=== PATIENT | female | born 1940 | race Caucasian/White ===

== ENCOUNTER 2017-02-04 01:11 | Observation (INO) | payer MEDICARE, MEDICAID ==
[2017-02-04 02:55] LABS: CKMB 0.7 ng/mL (0-6.6); Troponin I Less than 0.010 ng/mL (< 0.028)
[2017-02-04 04:11] VITALS: BMI 32.5
[2017-02-04] MEDS ORDERED: Ondansetron HCl/PF 4 MG/2 ML Vial IVP PRN ×2 (04:20→07:23)
[2017-02-04] MEDS ORDERED: Ondansetron ODT 4 MG TAB SL PRN (04:20)
[2017-02-04 06:12] LABS: Troponin I Less than 0.010 ng/mL (< 0.028)
[2017-02-04] MEDS ORDERED: Loratadine 10 MG TAB PO PRN (07:23)
[2017-02-04] MEDS ORDERED: Zolpidem Tartrate 5 MG TAB PO PRN (07:23)
[2017-02-04] MEDS ORDERED: Nitroglycerin 0.4 MG TAB (25 Tab Bottle) SL PRN (07:23)
[2017-02-04] MEDS ORDERED: Eucerin (Mineral Oil/Petrolatum,White) 30 gm Jar TOP PRN (07:23)
[2017-02-04] MEDS ORDERED: Chloraseptic Spray 180 ml Bottle PO PRN (07:23)
[2017-02-04] MEDS ORDERED: hydrALAZINE 20 MG/ML VIAL SLOW IVP PRN (07:23)
[2017-02-04] MEDS ORDERED: Senokot 8.6 MG TAB PO PRN (07:23)
[2017-02-04] MEDS ORDERED: Mag-Al 1200 mg/1200 mg/30 ML UDCUP PO PRN (07:23)
[2017-02-04] MEDS ORDERED: Artificial Tears 18 DROP/0.9 ML EA EYE PRN (07:23)
[2017-02-04] MEDS ORDERED: Diabetic Tussin 200 MG/10 ML UDCUP PO PRN (07:23)
[2017-02-04] MEDS ORDERED: Ondansetron ODT 4 MG TAB PO PRN (07:23)
[2017-02-04] MEDS ORDERED: Loperamide HCl 2 MG CAP PO PRN (07:23)
[2017-02-04] MEDS ORDERED: Sodium Chloride 0.65% Nasal 44 ML BOT EA NARE PRN (07:23)
[2017-02-04] MEDS ORDERED: Milk Of Magnesia 30 ML UDCUP PO PRN (07:23)
[2017-02-04 08:42] LABS: Cardiac Risk 3.5 (Less than 4.5)
[2017-02-04 08:46] LABS: Troponin I Less than 0.010 ng/mL (< 0.028)
[2017-02-04] MEDS: traMADol HCl 50 MG TAB PO PRN ×2 (09:01→18:29)
[2017-02-04] MEDS: Famotidine 20 MG TAB PO SCH ×2 (09:01→20:09)
[2017-02-04] MEDS: Aspirin 81 mg Enteric Coated Tablet PO SCH (09:01)
[2017-02-04] MEDS ORDERED: Ondansetron ODT 4 MG TAB ONE (10:13)
[2017-02-04] MEDS ORDERED: Ondansetron HCl/PF 4 MG/2 ML Vial ONE (10:16)
--- NOTE | 2017-02-04 11:22 | SS ---
PRIMARY CARE PHYSICIAN: eTmi Darden M.D. DATE OF ADMISSION: 02/04/2017 at 02:55 a.m. REASON FOR ADMISSION: Chest pain. HISTORY OF PRESENT ILLNESS: A 76-year-old female with history of COPD, gastroesophageal reflux disea se who presented to [facility] with complaint of chest pain. She was having chest p ain for the last 2-3 days. There was no relation of chest pain with food, respiration or activity. It was coming randomly and it was going to her back as well as left shoulder, sometimes associated wi th nausea, but no vomiting. She was feeling sometimes shortness of breath with chest discomfort. Sh e was also feeling some indigestion type of symptoms as well with burping associated with chest disco mfort. She denies any palpitation, dizziness or syncope. She denies any orthopnea, PND or leg swell ing. She denies any dyspnea on exertion. She denies any fever or chills, cough, flu-like illness. She denies any UTI symptoms. She denies any constipation, diarrhea, melena or hematochezia. Her octavio cription of pain was about 9/10 in intensity but after emergency room treatment at [facility], her pain was subsided. At [facility], patient was given morphine 2 mg, nitropatch 1/2 inch, aspirin 324 mg, Zofran and subsequently she was sent to our emergency room for rule out acute coronary syndrome. When she arrived to our emergency room and after the emergency room, she was admitted to stroke obser vation floor. So far, patient had 3 negative cardiac enzymes. Her lipid profile is also at target. Currently, patient is chest pain free. We decided to do stress test. Her last stress dose was in and at that time stress test and echocardiography was normal. The patient agreed to go for str ess test and after stress test, if that is normal, then we will consider discharging her home later o n today. REVIEW OF SYSTEMS: The following complete review of systems was negative, unless otherwise mentioned in the HPI or below: Constitutional: Weight loss or gain, ability to conduct usual activities. Skin: Rash, itching. Eyes: Double vision, pain. ENT/Mouth: Nose bleeding, neck stiffness, pain, tenderness. Cardiovascular: Palpitations, dyspnea on exertion, orthopnea. Respiratory: Shortness of breath, wheezing, cough, hemoptysis, fever or night sweats. Gastrointestinal: Poor appetite, abdominal pain, heartburn, nausea, vomiting, constipation, or diarr hea. Genitourinary: Urgency, frequency, dysuria, nocturia. Musculoskeletal: Pain, swelling. Neurologic/Psychiatric: Anxiety, depression. Allergy/Immunologic: Skin rash, bleeding tendency. Please see my HPI for pertinent positives and negatives. All other review of systems reviewed and ne gative except as mentioned in the HPI. PAST MEDICAL HISTORY: COPD, gastroesophageal reflux disease, benign positional vertigo. PAST PSYCHIATRIC HISTORY: Anxiety. PAST SURGICAL HISTORY: Cholecystectomy, hysterectomy, knee surgery. SOCIAL HISTORY: The patient lives at home. No history of tobacco, alcohol or illicit drug abuse. FAMILY HISTORY: Hypertension runs among several family members. Mother also had diabetes and breast cancer. One sister of lung cancer. CURRENT HOME MEDICATIONS: Aspirin 81 mg p.o. daily, omeprazole 20 mg p.o. b.i.d., a and ranitidine 1 50 mg p.o. daily. ALLERGIES: ACETAMINOPHEN, NSAID, PENICILLIN. EMERGENCY ROOM COURSE: Patient has received morphine 2 mg, nitro patch, aspirin 324 mg and Zofran at [facility]. PHYSICAL EXAMINATION: VITAL SIGNS: On arrival to the emergency room, blood pressure 151/77, pulse 83, respiratory rate 18, temperature 98.7, saturation 98% on room air, weight 90.7 kilograms. GENERAL: The patient is currently alert, awake, no obvious acute distress. HEAD: Normocephalic, atraumatic. EYES: Pupils are round and reactive to light. Extraocular muscle intact. ENT: Oropharynx within normal limits. Moist mucous membranes. No oral lesions, no pharyngeal eryth adriana, no exudate. NECK: Supple, no JVD, no thyromegaly, no carotid bruit. No jugular venous distention. LUNGS: Clear to auscultation without any rhonchi or rales. CARDIAC: S1, S2 regular without any significant murmur, but soft systolic murmur noted at parasterna l area. ABDOMEN: Soft and benign without any tenderness. EXTREMITIES: No edema. NEUROLOGIC: Nonfocal examination. PSYCHIATRIC: Normal affect. IMAGING DATA AND SIGNIFICANT LABORATORY DATA: 1. EKG based on my review, incomplete right bundle branch block pattern, left anterior fascicular bl ock, nonspecific T inversion in lead V2. 2. Chest x-ray based on my review, no acute cardiopulmonary process. 3. CBC: WBC 9.3, hemoglobin 14.7, platelet 274, INR 1.0. 4. BMP: Sodium 140, potassium 4.1, chloride 104, carbon dioxide 26, BUN 11, creatinine 0.74, glucos e 112, calcium 9.2. 5. LFT: AST 30, ALT 26, alkaline phosphatase 141, albumin 4.0. 6. Cardiac enzymes negative x4. BNP 20.1. 7. Lipid profile; triglycerides 64, cholesterol 174, LDL 111, and HDL 50. 8. Influenza A and B negative. ASSESSMENT AND PLAN/IMPRESSION: 1. Patient's chest pain description is atypical. Based on her history, it is very difficult to dete rmine whether it is related with cardiac etiology, acid reflux versus musculoskeletal. At this point , we already ruled out acute coronary syndrome with negative cardiac enzymes, her telemetry remained unremarkable. Currently, the patient is chest pain free. The patient agreed to go for pharmacologic al Cardiolite stress test today. If that stress test comes back negative, then we will consider disc harging her home later on today. She had echocardiography previously which showed moderate AR and tr icuspid regurgitation. 2. Chronic obstructive pulmonary disease, currently stable. The patient is no longer smoking and zulma remberto does not use any inhalers at this point. Her chronic obstructive pulmonary disease per patient is very stable. While in hospital, we will use DuoNeb p.r.n. basis only. 3. Gastroesophageal reflux disease. Upon discharge, the patient will continue her ranitidine 150 mg p.o. daily and omeprazole 20 mg p.o. b.i.d. 4. Moderate aortic regurgitation and tricuspid regurgitation based on prior echocardiography, garfield tly stable. 5. Deep venous thrombosis prophylaxis not needed because we are expecting discharge later on today. 6. Gastrointestinal prophylaxis, Pepcid 20 mg p.o. b.i.d. 7. Code status: The patient is FULL CODE. Patient does not have any surrogate decision maker. Disposition plan based on stress test result. DATE OF ADMISSION: 02/04/2017 at 3:00 a.m. DATE OF DISCHARGE: 02/04/2017 DISCHARGE DISPOSITION: Home. DISCHARGE DIAGNOSIS: Chest pain, ruled out acute coronary syndrome. SECONDARY DISCHARGE DIAGNOSES: Gastroesophageal reflux disease, chronic obstructive pulmonary diseas e, anxiety, obesity with body mass index 30. PRIMARY PROCEDURE/OPERATION: None. RADIOLOGICAL INVESTIGATION: Chest x-ray normal. Stress test official report is pending. SIGNIFICANT LABORATORY DATA: Please see above for further lab results. CONTRAINDICATIONS: None. CODE STATUS: FULL CODE. DISCHARGE MEDICATIONS: The patient will continue aspirin 81 mg p.o. daily, omeprazole 20 mg p.o. b.i .d., ranitidine 150 mg p.o. daily. DISCHARGE PLAN: Post hospital, patient will follow up with Dr. aDrden in 1 week. HOSPITAL COURSE: A 76-year-old female who was admitted for chest pain. Initially, she was evaluated at [facility]. She had negative cardiac enzymes and we ruled out acute coronary sy ndrome. We did stress test and official report is pending. If stress is negative, then she will be discharged home later on today. Patient was admitted and discharged on the same day.
[2017-02-04] MEDS ORDERED: Regadenoson 0.4 MG/5 ML SYRINGE ONE (11:49)
[2017-02-05] MEDS: Famotidine 20 MG TAB PO SCH (07:51)
[2017-02-05] MEDS: Aspirin 81 mg Enteric Coated Tablet PO SCH (07:51)
--- NOTE | 2017-02-05 11:02 | PDOC.PN ---
- Subjective Encounter Start Date: 02/05/17 Encounter Start Time: 07:35 -: old records requested/rev Patient seen and examined. No new complaints. No overnight events - Objective Resuscitation Status: Resuscitation Status FULL:Full Resuscitation MAR Reviewed: Yes Vital Signs & Weight: Vital Signs (12 hours) Temp Pulse Resp BP Pulse Ox 02/05/17 07:58 98.0 F 57 L 16 02/05/17 07:14 98.0 F 57 L 16 120/58 L 95 02/05/17 04:07 98.2 F 54 L 16 114/62 93 L 02/04/17 23:07 97.9 F 53 L 18 116/57 L 94 L Weight Admit Weight 208 lb Weight 207 lb 14.4 oz I&O: 02/04/17 02/05/17 02/06/17 06:59 06:59 06:59 Intake Total 790 Balance 790 EKG Reviewed by me: Yes (nsr) Phys Exam - Physical Examination Constitutional: NAD HEENT: PERRLA, moist MMs, sclera anicteric Neck: no JVD, supple Respiratory: no wheezing, no rales, no rhonchi Cardiovascular: RRR, no significant murmur, no rub Gastrointestinal: soft, non-tender, no distention, positive bowel sounds Musculoskeletal: no edema, pulses present Neurological: non-focal, normal sensation, moves all 4 limbs Lymphatic: no nodes Psychiatric: normal affect, A&O x 3 Skin: no rash, normal turgor Dx/Plan (1) Chest pain Code(s): R07.9 - CHEST PAIN, UNSPECIFIED Status: Acute (2) Anxiety Code(s): F41.9 - ANXIETY DISORDER, UNSPECIFIED Status: Chronic (3) COPD (chronic obstructive pulmonary disease) Status: Chronic (4) GERD (gastroesophageal reflux disease) Code(s): K21.9 - GASTRO-ESOPHAGEAL REFLUX DISEASE WITHOUT ESOPHAGITIS Status: Chronic (5) Obesity (BMI 30.0-34.9) Code(s): E66.9 - OBESITY, UNSPECIFIED Status: Chronic - Plan cont current plan of care * today resting part of stress test * if stress test normal, will discharge * medication reviewed as below * symptomatic treatment. Review of Systems - Review of Systems ENT: negative: Ear Pain, Ear Discharge, Nose Pain, Nose Discharge, Nose Congestion, Mouth Pain, Mouth Swelling, Throat Pain, Throat Swelling, Other Respiratory: negative: Cough, Dry, Shortness of Breath, Hemoptysis, SOB with Excertion, Pleuritic Pain, Sputum, Wheezing Cardiovascular: negative: chest pain, palpitations, orthopnea, paroxysmal nocturnal dyspnea, edema, light headedness, other Gastrointestinal: negative: Nausea, Vomiting, Abdominal Pain, Diarrhea, Constipation, Melena, Hematochezia, Other Genitourinary: negative: Dysuria, Frequency, Incontinence, Hematuria, Retention , Other Musculoskeletal: negative: Neck Pain, Shoulder Pain, Arm Pain, Back Pain, Hand Pain, Leg Pain, Foot Pain, Other - Medications/Allergies Allergies/Adverse Reactions: Allergies Allergy/AdvReac Type Severity Reaction Status Date / Time acetaminophen [From Tylenol] Allergy Verified 02/04/17 04:22 NSAIDS (Non-Steroidal Allergy Verified 02/04/17 04:22 Anti-Inflamma Penicillins Allergy Verified 02/04/17 04:22 Medications: Current Medications Al Hydroxide/Mg Hydroxide (Maalox) 30 ml PO Q6H PRN PRN Reason: Heartburn or Indigestion Albuterol/Ipratropium (Duoneb) 3 ml NEB [id number] PRN PRN Reason: SOB &/or Wheezing Artificial Tears (Tears Naturale) 0 drop EA EYE PRN PRN PRN Reason: Dry Eyes Aspirin (Ecotrin) 81 mg PO DAILY [facility] Last Admin: 02/05/17 07:51 Dose: 81 mg Famotidine (Pepcid) 20 mg PO BID [facility] Last Admin: 02/05/17 07:51 Dose: 20 mg Guaifenesin (Robitussin Sf) 200 mg PO Q4H PRN PRN Reason: Cough Hydralazine HCl (Apresoline) 10 mg SLOW IVP Q4H PRN PRN Reason: Systolic BP > 180 Loperamide HCl (Imodium) 2 mg PO PRN PRN PRN Reason: Diarrhea/Loose Stools Loratadine (Claritin) 10 mg PO DAILYPRN PRN PRN Reason: Sinus Symptoms Magnesium Hydroxide (Milk Of Magnesium) 30 ml PO DAILYPRN PRN PRN Reason: Constipation Mineral Oil/White Petrolatum (Eucerin Cream) 0 gm TOP BIDPRN PRN PRN Reason: Dry Skin Nitroglycerin (Nitrostat) 0.4 mg SL Q5MIN PRN PRN Reason: Chest Pain Ondansetron HCl (Zofran Odt) 4 mg PO Q6H PRN PRN Reason: Nausea/Vomiting Ondansetron HCl (Zofran) 4 mg IVP Q6H PRN PRN Reason: Nausea/Vomiting Last Admin: 02/04/17 10:10 Dose: 4 mg Phenol (Chloraseptic [place] 180 Ml Bot) 0 ml PO PRN PRN PRN Reason: Sore Throat Senna (Senokot) 2 tab PO HSPRN PRN PRN Reason: Constipation Sodium Chloride ([place] Nasal [place] 0.65%) 0 ml EA NARE QIDPRN PRN PRN Reason: Nasal Congestion Tramadol HCl (Ultram) 50 mg PO Q4H PRN PRN Reason: Moderate Pain (4-6) Last Admin: 02/04/17 18:29 Dose: 50 mg Zolpidem Tartrate (Ambien) 5 mg PO HSPRN PRN PRN Reason: Insomnia
--- NOTE | 2017-02-05 11:52 | DIS ---
PRIMARY CARE PHYSICIAN: Dr. Darden. DATE OF ADMISSION: 02/04/2017 DATE OF DISCHARGE: 02/05/2017 DISCHARGE DISPOSITION: Home. PRIMARY DISCHARGE DIAGNOSIS: Chest pain, ruled out acute coronary syndrome. SECONDARY DISCHARGE DIAGNOSES: Anxiety disorder, chronic obstructive pulmonary disease, gastroesopha geal reflux disease, obesity with BMI 32. PRIMARY PROCEDURE/OPERATION: None. RADIOLOGICAL INVESTIGATION: Chest x-ray, normal. Stress test, normal. SIGNIFICANT LABS: CBC, BMP, LFTs normal. Cardiac enzymes negative. LDL 111. DISCHARGE MEDICATIONS: Aspirin 81 mg p.o. daily, omeprazole 20 mg p.o. b.i.d., ranitidine 150 mg p.o . daily. CONTRAINDICATIONS: None. CODE STATUS: FULL CODE. INPATIENT CONSULTANTS: None. ALLERGIES: ACETAMINOPHEN, NSAID. DISCHARGE PLAN: Post hospital, the patient will follow up with primary care physician in 1 week. HOSPITAL COURSE: Please see my HPI/short stay summary for further details. The patient was admitted for chest pain. Her chest pain was noncardiac, most likely related with anxiety. Serial cardiac en zymes were negative. Telemetry remained unremarkable. LDL was 111. Patient was scheduled for a str ess test which was done in 2 days protocol and that came back normal. The patient is asymptomatic an d telemetry remained normal. Patient is medically stable for discharge. Please see my progress note from today for further details.
[2017-02-05 12:12] VITALS: BP 161/78; TEMP 98.4
--- NOTE | 2017-02-05 12:35 | NM ---
CARDIAC SPECT: HISTORY: A 76-year-old female with chest pain, atrial fibrillation, shortness of breath, and COPD. TECHNIQUE: A myocardial perfusion scan was performed using the single isotope two-day protocol with 30 millicuri es technetium 99m sestamibi injected intravenously for stress and rest images. Pharmacologic stress with Lexiscan was monitored and interpreted by Dr. Mac. FINDINGS: Homogeneous tracer distribution is seen in the myocardial segments on stress and rest images without fixed or reversible defects. GATED SPECT LVEF: 66% WALL MOTION EXAM: Normal. IMPRESSION: Normal myocardial perfusion scan. POS: [facility]
--- NOTE | 2017-02-05 13:28 | EKG ---
Test Reason : Blood Pressure : / mmHG Vent. Rate : 071 BPM Atrial Rate : 071 BPM P-R Int : 150 ms QRS Dur : 104 ms QT Int : 410 ms P-R-T Axes : 054 -60 063 degrees QTc Int : 445 ms Normal sinus rhythm Incomplete right bundle branch block Left anterior fascicular block Nonspecific ST abnormality Abnormal ECG Confirmed by NIDIA CONTRERAS [id number]), online editor TRISH MAGAÑA ([id number]) on 02/05/2017 1:27:38 PM Referred By: Confirmed By:NIDIA CONTRERAS
--- NOTE | 2017-03-11 11:50 | STRESS ---
Acquisition Time: 2017-02-04 09:23:29 Total Exercise Time: 00:01:00 Test Indications: CHEST PAIN Medications: Protocol: LEXISCAN Max HR: 082 BPM 56% of Pred: 146 BPM Max BP: 124/066 mmHG Max Work Load: 1.0 METS RESTING ECG: SINUS BRADYCARDIA AT 56 BPM WITH LEFT AXIS DEVIATION AND INCOMPLETE RIGHT BUNDLE BRANCH BLOCK SYMPTOMS: DYSPNEA APPROPRIATE BLOOD PRESSURE RESPONSE FOR LEXISCAN ECTOPY: NONE ECG RESPONSE: NO SIGNIFICANT CHANGES INTERPRETATION: NEGATIVE ECG/AWAIT NUCLEAR IMAGES FOR DEFINITIVE DIAGNOSIS Confirmed by DR. Panda KEARNEY ([id number]), editor city [place]AL[place] GORDON ([id number]) on 03/11/2017 11:49:30 AM Referred By: David NEGRON Confirmed By:DR. Panda KEARNEY
== END 2017-02-05 13:57 | disposition home or self-care (01) ==
LOC: ERS 01:11 → 2SW 02:55 → ERS 03:55
PROVIDERS: ADMIT Family Medicine; ATTEND Family Medicine
DX: R07.89 Other chest pain (principal); J44.9 Chronic obstructive pulmonary disease, unspecified; K21.9 Gastro-esophageal reflux disease without esophagitis; F41.9 Anxiety disorder, unspecified; H81.10 Benign paroxysmal vertigo, unspecified ear; I07.1 Rheumatic tricuspid insufficiency; I35.1 Nonrheumatic aortic (valve) insufficiency; I48.91 Unspecified atrial fibrillation; E66.9 Obesity, unspecified; Z68.32 Body mass index [BMI] 32.0-32.9, adult; Z87.891 Personal history of nicotine dependence; Z80.3 Family history of malignant neoplasm of breast; Z83.3 Family history of diabetes mellitus; Z79.82 Long term (current) use of aspirin; Z79.899 Other long term (current) drug therapy; Z88.0 Allergy status to penicillin; Z88.8 Allergy status to other drugs, medicaments and biological substances; Z90.710 Acquired absence of both cervix and uterus; Z90.49 Acquired absence of other specified parts of digestive tract; Z98.890 Other specified postprocedural states
CPT/HCPCS: 78452; 80061; 82553; 84484 ×2; 93005; 93017; 96374; 99285; A9500; G0378; 36415; J2405; J2785; Q0162

== ENCOUNTER 2017-09-19 22:22 | Observation (INO) | payer MEDICARE, MEDICAID ==
[2017-09-19 23:10] LABS: Bilirubin Negative (Negative); Blood, Urine Negative (Negative); Clarity CLOUDY (Clear); Glucose, Urine (Dipstick) Negative (Negative); Leukocyte Trace (Negative); Nitrite Negative (Negative); Protein, Urine (Dipstick) Negative (Neg-Trace); Specific Gravity, Urine 1.003 (1.002-1.036); Urobilinogen 0.2 mg/dL (0.2-1.0); pH, Urine 5.5 (5.0-9.0)
[2017-09-19 23:12] LABS: Bacteria/HPF Rare-Few HPF (None Seen); Hyaline Casts/LPF 0-3 HYALINE CAST LPF (0-3 Hyaline); Pathc Cast-AUWi Flag 0.29 (0-2.49); RBC/HPF 0-3 HPF (0-3); Squamous Epithelial 0-3 HPF (0-3); WBC/HPF 0-3 HPF (0-3)
[2017-09-19 23:24] LABS: #Basophils 0.1 thou/uL (0.0-0.2); #Eosinphils 0.5 thou/uL (0.0-0.7); #Lymphocytes 2.5 thou/uL (1.20-3.40); #Monocytes 0.5 thou/uL (0.11-0.59); #Neutrophils 4.6 thou/uL (1.40-6.50); %Basophils 0.7 % (0.0-1.0); %Eosinophils 5.7 % (0.0-10.0); %Lymphocytes 30.8 % (21.0-51.0); %Monocytes 6.6 % (0.0-10.0); %Neutrophils 56.1 % (42.0-75.0); Hemoglobin 13.8 g/dL (12.0-16.0); Mean Corpuscular HGB CONC 34.9 g/dL (32.0-36.0); Mean Corpuscular Hemoglobin 32.5 pg (27.0-31.0); Mean Corpuscular Volume 93.1 fL (78.0-98.0); Mean Platelet Volume 7.2 fL (7.4-10.4); Platelet Count 247 thou/uL (130-400); RBC Distribution Width 11.8 % (11.5-14.5); Red Blood Cell (RBC) Count 4.27 mill/uL (4.20-5.40); White Blood Cell (WBC) Count 8.2 thou/uL (4.8-10.8)
[2017-09-19 23:49] LABS: ALT (SGPT) 24 U/L (8-55); AST (SGOT) 28 U/L (5-34); Albumin 3.9 g/dL (3.4-4.8); Alkaline Phosphatase 131 U/L (40-150); Anion Gap 13 mmol/L (10-20); BUN (Urea Nitrogen) 7 mg/dL (9.8-20.1); Bilirubin, Total 0.5 mg/dL (0.2-1.2); Calc. Creatinine Clearance 0 mL/min (70-130); Calcium 9.7 mg/dL (7.8-10.44); Carbon Dioxide 23 mmol/L (23-31); Chloride 105 mmol/L (98-107); Estimated GFR-MDRD 72; Globulin 3.1 g/dL (2.4-3.5); Glucose 97 mg/dL (83-110); Potassium 3.8 mmol/L (3.5-5.1); Sodium 137 mmol/L (136-145)
[2017-09-19 23:52] LABS: Troponin I Less than 0.010 ng/mL (< 0.028)
[2017-09-20 03:09] LABS: Troponin I 0.012 ng/mL (< 0.028)
--- NOTE | 2017-09-20 05:28 | CT ---
HEAD CT NONCONTRAST: INDICATIONS: Left arm sensory disturbance. FINDINGS: There is no evidence of acute intracranial hemorrhage, mass effect, or midline shift. Mild chronic i schemic disease is seen within the cerebral hemispheres. The paranasal sinuses are clear. IMPRESSION: 1. No acute intracranial hemorrhage or mass effect. 2. Mild chronic ischemic disease of the cerebral white matter. POS: [facility]
[2017-09-20 05:53] VITALS: BMI 32.6
[2017-09-20 07:00] LABS: Troponin I Less than 0.010 ng/mL (< 0.028)
--- NOTE | 2017-09-20 07:32 | RAD ---
CHEST 2 VIEWS: HISTORY: Pain. COMPARISON: 02/03/17. FINDINGS: Slight elongation of the aorta. Upper normal cardiac silhouette. Pulmonary vessels and hilum are no rmal. Costophrenic angles are clear. No consolidation or mass. No pneumothorax or osseous abnormal ities. There is rightward curvature of the thoracic spine, unchanged. IMPRESSION: No acute cardiopulmonary process. POS: [facility]
[2017-09-20 11:25] LABS: Hemoglobin A1c 5.2 % (4.0-6.0)
[2017-09-20 11:47] LABS: Cardiac Risk 3.7 (Less than 4.5)
[2017-09-20 11:59] VITALS: BP 108/68; TEMP 97.5
--- NOTE | 2017-09-20 13:25 | CON ---
DATE OF CONSULTATION: 09/20/[address] Theo Harrell full consultation for details. HISTORY OF PRESENT ILLNESS: Briefly, Ms. Tavarez is a very pleasant 77-year-old woman who recently presented with chest pain. The pain was described as sharp. It began acutely. She states it was wo rse with deep breath. Also, states it was worse with movement of her left arm. It has been a consta nt type discomfort. PHYSICAL EXAMINATION: The area in her mid axillary region is very tender to palpation. LABORATORY DATA: Her CK and troponins have been negative. IMPRESSION: Atypical chest pain. RECOMMENDATIONS: Ms. Tavarez's symptoms are not suggestive of angina. She had a normal stress stud y done in the office in September that was negative for ischemia as well as a stress study in January a [facility] [place] is also negative for ischemia. I would treat with nonsteroidal therapy. We will also r ecommend a rib series to assess for fracture. She does deny trauma.
--- NOTE | 2017-09-20 14:12 | CON-2 ---
DATE OF CONSULTATION: 09/20/2017 REASON FOR CONSULTATION: Chest pain. HISTORY OF PRESENT ILLNESS: This is a 77-year-old female, who is complaining of chest pain that bega n at approximately 05:00 p.m. yesterday evening. She has never had this kind of chest pain before. Pain is sharp and located on the left lateral side of her anterior chest wall. The pain is not const ant, it is not constant, but comes and goes. It is worsened with deep inspiration and left arm movem ent. The patient has a past medical history of COPD, GERD, and anxiety, but no known history of kelby nary artery disease. She was evaluated in the ER and found to have a new left bundle branch block as compared to prior EKGs. There was also concern for some TIA with left arm weakness. The patient's CT of the head was done with no contrast that was negative. She was admitted for acute coronary synd zayra rule out. PAST MEDICAL HISTORY: 1. COPD. 2. GERD. 3. Benign paroxysmal positional vertigo. 4. Anxiety. PAST SURGICAL HISTORY: 1. Cholecystectomy. 2. Hysterectomy. 3. Orthopedic knee surgery. SOCIAL HISTORY: No history of tobacco use or illicit drug use. 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 FAMILY HISTORY: Significant for hypertension in several family members. Mother with diabetes and br east cancer. MEDICATIONS: Upon discharge on 02/04/2017, patient was taking aspirin 81 mg p.o. daily, omeprazole 2 0 mg p.o. b.i.d., and ranitidine 150 mg p.o. daily. However, the patient notes she is not taking the medications for several months now. REVIEW OF SYSTEMS: Constitutional: The patient denies weight loss, fatigue. Cardiovascular: Patie nt endorses chest pain, denies palpitations. Pulmonary: Patient denies shortness of breath. Denies wheezing. Gastrointestinal: Patient denies abdominal pain, denies nausea, vomiting, diarrhea. Gen itourinary: Patient denies urinary urgency or frequency. Musculoskeletal: Patient denies joint pop n. Denies swelling. Neurologic: The patient denies extremity weakness or numbness. Psychiatric: The patient denies anxiety. No depression. PHYSICAL EXAMINATION: VITAL SIGNS: Temperature of 97.5, pulse of 71, respirations of 18, O2 saturation 97% on room air, bl ood pressure 135/78. GENERAL: The patient is A and O x4, in no distress. HEENT: Normocephalic, atraumatic. ENT: Shows oropharynx within normal limits. Moist mucous membra stevie. NECK: Supple, with no lymphadenopathy. LUNGS: Clear to auscultation bilaterally. CARDIOVASCULAR: Regular rate and rhythm. No murmurs. ABDOMEN: Soft, nontender to palpation and massive distention is felt. EXTREMITIES: Show no edema. NEUROLOGIC: Cranial nerves II-XII intact. Normal sensation in bilateral upper and lower extremities . Strength 5/5 in bilateral upper and lower extremities. PSYCHIATRIC: Alert and oriented. Normal affect. SIGNIFICANT LABORATORY VALUES: Include hemoglobin of 13.8, hematocrit of 39.7, platelet of 247. Sod ium 137, potassium 3.8, hemoglobin A1c 5.2. Troponins are negative x3. BNP of 25.6, triglycerides 1 00, cholesterol 182, LDL 113, HDL 49. Urinalysis is negative. ASSESSMENT AND PLAN: This is a 77-year-old female presenting with reproducible intermittent left-gonzález ed chest pain. 1. Atypical chest pain. This is likely not cardiac in nature given negative cardiac enzymes and rep roducible nature of the pain. Upon further review of the EKG, it is felt that the patient does not m eet criteria for left bundle branch block. Leads 1, aVL, and V6 are unaffected. There is significan t pain upon palpation of the lateral ribs on the left side. For this reason, we will get a rib serie s to check for fracture. The patient has recently undergone stress testing on 02/02/2017. Stress te st at that time was normal with an ejection fraction of 66%. The patient also underwent stress testi ng on 09/10/2015, which was also normal with an ejection fraction of 74%. She is having no chest pop n at rest, and we do not feel that this is cardiac in nature at this time. 2. Left arm weakness. This was labeled as a TIA. In the ER, CT of the head was negative. Patient does not have any sensory or motor deficits, but rather did not want to move her left arm, because it hurt her chest too much. The patient has no focal neurological deficits at this time. She is clear ed from a cardiac standpoint. This consultation was discussed with Dr. Juan Antonio Nichols.
--- NOTE | 2017-09-20 15:43 | RAD ---
AP AND OBLIQUE VIEWS LEFT RIBS: History: FINDINGS: Left rib radiographs demonstrate no definite evidence of left rib fractures or acute bony lesions. IMPRESSION: Unremarkable AP and oblique views of left ribs. POS: [facility]
--- NOTE | 2017-09-20 19:13 | HP ---
CHIEF COMPLAINT: Left arm weakness and chest pain. HISTORIAN: The patient, reliable. HISTORY OF PRESENT ILLNESS: This is a 77-year-old female with past medical history of chronic obstru ctive pulmonary disease, vertigo, unknown history of arrhythmia most likely bradycardia, osteopenia, GERD, presenting with a chief complaint of chest pain that radiated to her left arm on the pain scale of 10/10, which was intermittent. Patient states that the pain came around 5:00 p.m. and it was elias y sharp in nature and that made her get very scared; therefore she called her brother and her brother told her to call the ambulance. Per the patient, she took some aspirin, which helped the pain somew hat. The patient denies any headaches, nausea, vomiting, shortness of breath, palpitations, abdomina l pain, constipation, diarrhea; however, admits to having some weakness in the left arm. REVIEW OF SYSTEMS: Positive for chest pain, left arm weakness and discomfort and negative for all ot hers as stated in the HPI. PAST MEDICAL HISTORY: Includes COPD, vertigo, osteopenia, GERD, unknown arrhythmia. FAMILY HISTORY: Patient states that mom and dad has . FAMILY HISTORY: Noncontributory to the visit. PAST SURGICAL HISTORY: The patient had a right knee surgery, and a hysterectomy. SOCIAL HISTORY: Patient was former alcoholic, but quit. Patient denies smoking and the patient also denied using any illicit drugs. PSYCH HISTORY: The patient denies a history of anxiety. ALLERGIES: Patient is allergic to NSAIDS, PENICILLINS. Patient also states that she does not like s moke. PHYSICAL EXAMINATION: VITAL SIGNS: Temperature in the ED was 97.3, pulse 71, respirations of 18, O2 saturation of 97, bloo d pressure is 135/78. GENERAL: The patient is alert, oriented x3, not in any acute distress. The patient is very pleasant . HEENT: Normocephalic, atraumatic. Pupils are equally round and reactive to light. No scleral icter us. NECK: Supple, no JVDs. LUNGS: Clear to auscultation bilaterally. No wheezing, no rales appreciated. CARDIAC: Positive S1, S2, regular rate and rhythm. No murmurs, no gallops or rubs. ABDOMEN: Soft, nontender, nondistended. No palpable masses. EXTREMITIES: No edema. Good upper extremity and lower extremity strength. Good pulses bilaterally. NEUROLOGIC: Cranial nerves II-XII grossly intact. No neurological deficits noted. PSYCHIATRIC: The patient is alert, oriented x3, normal affect. ASSESSMENT AND PLAN: This is a 77-year-old female being admitted for: 1. Chest pain, most likely secondary to gastroesophageal reflux disease. The patient is on Protonix at this time. Troponin x3 has been negative. EKG is negative. We have consulted Cardiology. We w ill follow up with cardiology's recommendations. 2. Left arm weakness. Patient at this point is feeling better, does not have any weakness in the le ft arm. We will continue to monitor the patient. 3. History of chronic obstructive pulmonary disease. We will do a neb treatments p.r.n. Continue t o monitor the patient. 4. History of anxiety. Patient is currently calm and stable. We will monitor the patient. 5. Benign paroxysmal positional vertigo. The patient is currently not having any dizziness. The pa tient is stable. We will monitor the patient.
--- NOTE | 2017-09-21 00:49 | DIS ---
The patient was seen and examined by me on the day of discharge, the patient was stable and did not h ave any acute distress, all physical within normal limits. DISCHARGE DIAGNOSES: 1. Chest pain likely secondary to gastroesophageal reflux disease. 2. Left arm weakness. 3. History of chronic obstructive pulmonary disease. 4. History of anxiety. 5. Benign paroxysmal positional vertigo. HOSPITAL COURSE: This is a 77-year-old female who came in for chest pain and left arm weakness. The patient tried to take aspirin but did not help, so patient came in the ambulance, came to the ED. In the ED, patient was found to be sinus bradycardic. The patient was admitted and Cardiology w as consulted. Cardiology saw the patient stated that he needs to be done the chest has nothing that is related to any typical cardiac symptoms. At this point, Cardiology has signed off and state d that the patient has had a stress test not too long ago; therefore, no stress test or echo was orde red to be followed up on. The patient has been asymptomatic and patient is doing well. DISPOSITION: The patient is being discharged on the same day of admission. The patient is advised t o follow up with her primary care doctor. LABORATORY DATA: Troponins were negative x3. All labs were within normal limits. DISCHARGE MEDICATIONS: Please refer to the patient's electronic medical records for discharge medica tions. The discharge encounter was about 35 minutes.
== END 2017-09-20 16:21 | disposition home or self-care (01) ==
LOC: ERS 22:22 → 2SE 09-20 02:59
PROVIDERS: ADMIT Internal Medicine; ATTEND Internal Medicine
DX: R07.89 Other chest pain (principal); R53.1 Weakness; R42 Dizziness and giddiness; J44.9 Chronic obstructive pulmonary disease, unspecified; K21.9 Gastro-esophageal reflux disease without esophagitis; Z88.0 Allergy status to penicillin
CPT/HCPCS: 70450; 71046; 71100; 80053; 80061; 82553; 83036; 83880; 84484 ×3; 85025; 93005; 97139; 99285; G0378 ×2; 36415; 81003; 81015

== ENCOUNTER 2017-10-17 03:20 | Emergency (ER) | payer MEDICARE, MEDICAID ==
[2017-10-17] MEDS ORDERED: Diazepam 5 MG TAB ONE (04:18)
[2017-10-17 05:20] LABS: #Eosinphils 0.2 thou/uL (0.0-0.7); #Lymphocytes 1.1 thou/uL (1.20-3.40); #Monocytes 0.4 thou/uL (0.11-0.59); #Neutrophils 5.6 thou/uL (1.40-6.50); %Basophils 0.4 % (0.0-1.0); %Eosinophils 2.9 % (0.0-10.0); %Lymphocytes 14.7 % (21.0-51.0); Hemoglobin 13.5 g/dL (12.0-16.0); Mean Corpuscular HGB CONC 33.2 g/dL (32.0-36.0); Mean Corpuscular Hemoglobin 31.7 pg (27.0-31.0); Mean Corpuscular Volume 95.7 fL (78.0-98.0); Mean Platelet Volume 7.9 fL (7.4-10.4); Platelet Count 226 thou/uL (130-400); RBC Distribution Width 12.1 % (11.5-14.5); Red Blood Cell (RBC) Count 4.26 mill/uL (4.20-5.40); White Blood Cell (WBC) Count 7.4 thou/uL (4.8-10.8)
[2017-10-17 05:35] LABS: ALT (SGPT) 46 U/L (8-55); AST (SGOT) 36 U/L (5-34); Albumin 3.9 g/dL (3.4-4.8); Alkaline Phosphatase 172 U/L (40-150); Anion Gap 10 mmol/L (10-20); BUN (Urea Nitrogen) 10 mg/dL (9.8-20.1); Bilirubin, Total 0.6 mg/dL (0.2-1.2); Calc. Creatinine Clearance 0 mL/min (70-130); Calcium 8.9 mg/dL (7.8-10.44); Carbon Dioxide 26 mmol/L (23-31); Chloride 105 mmol/L (98-107); Estimated GFR-MDRD 68; Globulin 3.3 g/dL (2.4-3.5); Glucose 123 mg/dL (83-110); Potassium 3.7 mmol/L (3.5-5.1); Protein, Total 7.2 g/dL (6.0-8.3); Sodium 137 mmol/L (136-145)
--- NOTE | 2017-10-17 09:19 | CT ---
PRELIMINARY REPORT/[facility]/EMERGENTY AFTER-HOURS PROCEDURE CT Head Without Intravenous Contrast EXAM DATE/TIME: 10/17/2017 4:12 AM CLINICAL HISTORY: 77 years old, female; Signs and symptoms; Dizziness; Patient HX: 77 yo f presents to ed with dizzines s. PT reports sudden onset dizziness that started tonight while sitting in her chair, reports dizzine ss has now resolved. PT reports associated headache, neck pain, weakness, and nausea. PT denies fall, denies vision changes, denies chest pain, denies fever, denies chills. PT reports HX of vertigo, but states this spell has been more severe than usual. TECHNIQUE: Axial computed tomography images of the head/brain without intravenous contrast. COMPARISON: No relevant prior studies available. FINDINGS: Brain: Volume loss and chronic small vessel ischemic change. No brain edema. No intracranial hemorrha ge. Ventricles: Normal. No ventriculomegaly. Bones/joints: Normal. No acute fracture. Sinuses: Normal as visualized. No acute sinusitis. Mastoid air cells: Normal as visualized. No mastoid effusion. Soft tissues: Normal. IMPRESSION: No acute brain findings. Thank you for allowing us to participate in the care of your patient. Dictated and Authenticated by: Gabino López MD 10/17/2017 4:38 AM Central Time ([place] & [place]) FINAL REPORT HEAD CT WITHOUT CONTRAST: COMPARISON: 09/20/17. HISTORY: Dizziness. FINDINGS: This report is in agreement with the preliminary report by [facility]. No acute intracranial process. Age- appropriate atrophy. Chronic small vessel ischemic change of the white matter identified. POS: [facility]
== END 2017-10-17 07:22 | disposition home or self-care (01) ==
LOC: ERS 03:20
DX: R42 Dizziness and giddiness (principal); F41.9 Anxiety disorder, unspecified; K21.9 Gastro-esophageal reflux disease without esophagitis; M85.80 Other specified disorders of bone density and structure, unspecified site; I49.9 Cardiac arrhythmia, unspecified; J44.9 Chronic obstructive pulmonary disease, unspecified; Z79.899 Other long term (current) drug therapy
CPT/HCPCS: 36415; 70450; 80053; 85025

== ENCOUNTER 2017-11-14 19:01 | Observation (INO) | payer MEDICARE, MEDICAID ==
[~2017-11-14 19:01] MED LIST: ISOVUE-370 76%-LOCM 1 ML ONE
--- NOTE | 2017-11-14 20:07 | RAD ---
PORTABLE CHEST ONE VIEW: 11/14/2017 6:56 p.m. HISTORY: Generalized weakness. COMPARISON: 09/20/2017 FINDINGS: The heart size is enlarged. The aorta is tortuous. The lungs are well expanded without lobar consol idation, pneumothoraces, abraham pulmonary edema, or pleural effusions. IMPRESSION: No acute process. POS: [facility]
[2017-11-14 20:09] LABS: #Basophils 0.1 thou/uL (0.0-0.2); #Eosinphils 0.6 thou/uL (0.0-0.7); #Lymphocytes 1.9 thou/uL (1.20-3.40); #Monocytes 0.6 thou/uL (0.11-0.59); #Neutrophils 4.2 thou/uL (1.40-6.50); %Basophils 1.1 % (0.0-1.0); %Eosinophils 8.2 % (0.0-10.0); %Monocytes 7.5 % (0.0-10.0); %Neutrophils 57.2 % (42.0-75.0); Hemoglobin 14.6 g/dL (12.0-16.0); Mean Corpuscular HGB CONC 33.2 g/dL (32.0-36.0); Mean Corpuscular Hemoglobin 31.5 pg (27.0-31.0); Mean Corpuscular Volume 95.1 fL (78.0-98.0); Mean Platelet Volume 8.1 fL (7.4-10.4); Platelet Count 286 thou/uL (130-400); RBC Distribution Width 11.9 % (11.5-14.5); Red Blood Cell (RBC) Count 4.62 mill/uL (4.20-5.40); White Blood Cell (WBC) Count 7.3 thou/uL (4.8-10.8)
[2017-11-14] MEDS ORDERED: Lidocaine Viscous Sol 2% 15 ml UD Cup ONE (20:15)
[2017-11-14] MEDS ORDERED: Mag-Al 1200 mg/1200 mg/30 ML UDCUP ONE (20:15)
[2017-11-14 20:28] LABS: ALT (SGPT) 41 U/L (8-55); AST (SGOT) 49 U/L (5-34); Alkaline Phosphatase 203 U/L (40-150); Anion Gap 12 mmol/L (10-20); BUN (Urea Nitrogen) 9 mg/dL (9.8-20.1); Bilirubin, Total 0.4 mg/dL (0.2-1.2); Calc. Creatinine Clearance 0 mL/min (70-130); Calcium 10.3 mg/dL (7.8-10.44); Carbon Dioxide 26 mmol/L (23-31); Chloride 105 mmol/L (98-107); Estimated GFR-MDRD 73; Globulin 3.3 g/dL (2.4-3.5); Glucose 100 mg/dL (83-110); Potassium 3.8 mmol/L (3.5-5.1); Protein, Total 7.3 g/dL (6.0-8.3); Sodium 139 mmol/L (136-145)
[2017-11-14 20:32] LABS: CKMB 1.5 ng/mL (0-6.6); Troponin I Less than 0.010 ng/mL (< 0.028)
[2017-11-14 23:27] LABS: Troponin I Less than 0.010 ng/mL (< 0.028)
[2017-11-14 23:55] VITALS: BMI 32.3
--- NOTE | 2017-11-15 00:13 | CT ---
CT ABDOMEN AND PELVIS WITH IV CONTRAST: HISTORY: Abdominal pain. COMPARISON: 05/03/2017 FINDINGS: The lung bases are unremarkable. No free air, free fluid, or lymphadenopathy is seen in the abdomen or pelvis. No calcified gallstones are seen. The liver demonstrates decreased attenuation, compared to the spleen, consistent with fatty infiltration. The spleen, pancreas, left adrenal gland, and ki dneys are normal. A 2 cm right adrenal adenoma is stable. The small bowel loops are not abnormally dilated. Some of the colonic loops are air-filled. The pa tient is status post hysterectomy. There are degenerative changes in the spine. There are vascular calcifications without evidence of aneurysmal dilatation of the abdominal aorta. IMPRESSION: 1. Fatty liver. 2. Stable 2 cm right adrenal adenoma. 3. No evidence of small bowel obstruction. POS: [facility]
[2017-11-15 02:31] LABS: Troponin I Less than 0.010 ng/mL (< 0.028)
[2017-11-15] MEDS ORDERED: Ondansetron ODT 4 MG TAB PO PRN (04:37)
[2017-11-15] MEDS ORDERED: Ondansetron HCl/PF 4 MG/2 ML Vial IVP PRN (04:37)
[2017-11-15] MEDS ORDERED: Acetaminophen 325 MG TAB PO PRN (04:37)
[2017-11-15] MEDS ORDERED: Sodium Chloride 0.9% 1,000 ML IV SCH (04:45)
--- NOTE | 2017-11-15 05:23 | HP ---
DATE OF ADMISSION: 11/14/2017 CHIEF COMPLAINT: Generalized weakness and lightheadedness. HISTORY OF PRESENT ILLNESS: This is a 77-year-old female with past medical history of chronic obstru ctive pulmonary disease, vertigo, unknown history of arrhythmias likely due to bradycardia, osteopeni a, GERD presenting with chief complaint of generalized weakness and lightheadedness, which occurred o n the day of admission per the patient. She was sitting in her chair and patient started having ligh theadedness and measured heart rate at the time was in the 30s and 40s. Patient was then brought to the hospital to be evaluated. Patient has had history of bradycardias and on her last admission on 0 09/20/2017 when patient came to the hospital with left arm weakness and chest pain. I evaluated the p atient and offered patient to get a pacemaker; however, patient states that she has known about the h istory of bradycardias, but she does not want any pacemaker at this time. REVIEW OF SYSTEMS: At this point, patient denies any headaches, chest pain, palpitation. Patient en dorses abdominal discomfort. Positive for generalized weakness, lightheadedness, and abdominal disco mfort. Otherwise, as documented in the HPI, all other systems were reviewed and are negative. PAST MEDICAL HISTORY: Includes COPD, vertigo, osteopenia, GERD, bradycardia. FAMILY HISTORY: Reviewed and noncontributory. PAST SURGICAL HISTORY: Right knee surgery and hysterectomy. SOCIAL HISTORY: Patient is a former alcoholic, but quit. Patient denies any illicit drug use and sm oking. PSYCHIATRIC HISTORY: Patient does not have any psych history. ALLERGIES: NSAID, PENICILLINS. CURRENT MEDICATIONS: Patient takes aspirin 81 mg, vitamin D3, fish oil, folic acid, meclizine, omepr azole. PHYSICAL EXAMINATION: VITAL SIGNS: Blood pressure is 138/80, pulse is 74, respiratory rate of 19, temperature is 98.0, O2 sat is 98. GENERAL: Patient is alert, oriented x3, not in acute distress. Patient is lying in bed comfortably, speaking in full sentences. HEENT: Normocephalic, atraumatic. Pupils are equally round and reactive to light. Extraocular move ments are intact. No scleral icterus. No conjunctival pallor. Mucous membranes are moist. Trachea is midline. NECK: No JVD. Supple. LUNGS: Clear to auscultation bilaterally. No wheezing, no rales, no rhonchi is appreciated. CARDIOVASCULAR: Positive S1, S2. Regular rate and rhythm. No murmurs, no gallops, or no rubs appre ciated. ABDOMEN: Soft, mild tenderness at the right lower quadrant with deep palpation. Positive bowel soun ds in all quadrants. No pulsatile masses. No peritoneal signs. EXTREMITIES: Patient has 5/5 upper extremity strength with good pulses at the radial pulses. Lower extremities: Patient has 5/5 lower extremity strength with good pulses. No edema noted. NEUROLOGIC: Cranial nerves II-XII grossly intact. No neurologic deficits noted. PSYCHIATRIC: Normal affect. SKIN: Warm, dry, and intact. LABORATORY DATA: EKG shows normal sinus rhythm at 73. WBC 7.3, hemoglobin is 14.6, hematocrit is 44 , platelet count of 286. Sodium is 139, potassium is 3.8, chloride is 105, carbon dioxide 26, anion gap of 12, BUN of 9, creatinine is 0.77, glucose is 100, calcium is 10.3. AST is 49, ALT is 41, lily line phosphatase is 203. ASSESSMENT AND PLAN: This is a 77-year-old female being admitted for generalized weakness, lighthead edness likely due to symptomatic bradycardia. Patient has had numerous history of bradycardia with s imilar symptoms. At this point, we have consulted Cardiology. We will follow up with the recommenda tion. We will start patient on her home medications. 1. Abdominal discomfort. CT of the abdomen and pelvis was ordered and negative. At this point, we will manage the patient conservatively. 2. History of bradycardia. At this point, patient's heart rate is normal at this time, but patient has been having symptom of bradycardia. Patient probably has sick sinus syndrome. Cardiology has be en consulted. Patient will probably benefit from tinner automatic and patient will benefit from a possible pacemaker since patient has been having these symptoms for some time. Of note, it is impor tant to note that patient does not want any pacemaker placed. 3. Osteopenia. We will continue to manage the patient conservatively. 4. Alcoholic fatty liver. We will manage the patient conservatively. 5. History of gastroesophageal reflux disease. We will continue patient on her home medications. 6. Deep venous thrombosis and gastrointestinal prophylaxis.
[2017-11-15] MEDS ORDERED: Loratadine 10 MG TAB PO PRN (07:29)
[2017-11-15] MEDS ORDERED: Senokot 8.6 MG TAB PO PRN (07:29)
[2017-11-15] MEDS ORDERED: Temazepam 15 MG CAP PO PRN (07:29)
[2017-11-15] MEDS ORDERED: Artificial Tears 18 DROP/0.9 ML EA EYE PRN (07:29)
[2017-11-15] MEDS ORDERED: Mag-Al 1200 mg/1200 mg/30 ML UDCUP PO PRN (07:29)
[2017-11-15] MEDS ORDERED: Diabetic Tussin 200 MG/10 ML UDCUP PO PRN (07:29)
[2017-11-15] MEDS ORDERED: Chloraseptic Spray 180 ml Bottle PO PRN (07:29)
[2017-11-15] MEDS ORDERED: Loperamide HCl 2 MG CAP PO PRN (07:29)
[2017-11-15] MEDS ORDERED: Sodium Chloride 0.65% Nasal 44 ML BOT EA NARE PRN (07:29)
[2017-11-15] MEDS ORDERED: Milk Of Magnesia 30 ML UDCUP PO PRN (07:29)
[2017-11-15] MEDS ORDERED: hydrALAZINE 20 MG/ML VIAL SLOW IVP PRN (07:29)
[2017-11-15] MEDS ORDERED: Eucerin (Mineral Oil/Petrolatum,White) 30 gm Jar TOP PRN (07:29)
[2017-11-15 08:07] VITALS: TEMP 97.4
[2017-11-15] MEDS ORDERED: Aspirin 81 mg Enteric Coated Tablet PO SCH (09:00)
[2017-11-15] MEDS ORDERED: Enoxaparin Sodium 40 MG/0.4 ML SYRINGE SC SCH (09:00)
[2017-11-15] MEDS ORDERED: Folic Acid 1 MG TAB PO SCH (09:00)
[2017-11-15] MEDS ORDERED: Fish Oil 1,000 MG CAP PO SCH (09:00)
[2017-11-15] MEDS ORDERED: Famotidine 20 MG TAB PO SCH (09:00)
[2017-11-15] MEDS ORDERED: Cholecalciferol (Vitamin D3) 400 UNITS TAB PO SCH (09:00)
[2017-11-15] MEDS ORDERED: Meclizine HCl 25 MG TAB PO SCH (09:00)
--- NOTE | 2017-11-15 09:39 | DIS ---
DATE OF ADMISSION: 11/14/2017 DATE OF DISCHARGE: Pending. PRIMARY CARE PHYSICIAN: [facility]. DISCHARGE DISPOSITION: Home. PRIMARY DISCHARGE DIAGNOSIS: Symptomatic bradycardia, resolved. SECONDARY DISCHARGE DIAGNOSES: Alcoholic fatty liver, anxiety, chronic obstructive pulmonary disease , gastroesophageal reflux disease, obesity with BMI 32. PRIMARY PROCEDURE/OPERATION: None. RADIOLOGICAL INVESTIGATION: Chest x-ray normal. Abdomen and pelvis CT scan showed fatty liver. SIGNIFICANT LABORATORY DATA: WBC 7.3, hemoglobin 14.6, platelet 286. Sodium 139, potassium 3.8, BUN 9, creatinine 0.77, calcium 10.3, AST 49, ALT 41, alkaline phosphate 203, albumin 4.0. Cardiac enzy mes negative x3. BNP 42.9. TSH 1.73. DISCHARGE MEDICATIONS: Aspirin 81 mg p.o. daily, fish oil 1000 mg p.o. daily, folic acid 1 mg daily, Antivert 25 mg p.o. b.i.d. p.r.n., omeprazole 20 mg p.o. b.i.d., vitamin D3 1000 unit p.o. daily. CONTRAINDICATIONS: None. CODE STATUS: DNR. INPATIENT CONSULTANTS: Dr. Camacho was consulted while in hospital. TEST RESULTS PENDING ON DISCHARGE: None. ALLERGIES: NSAID, PENICILLIN. DISCHARGE PLAN: Post hospital, the patient will follow up with Dr. Camacho as instructed. HOSPITAL COURSE: A 77-year-old female with above-mentioned medical problem who has chronic sinus bra dycardia who was admitted by Dr. Johns last night. Please see his H&P for further details. The pat ient presented to emergency room with a diffuse vague abdominal discomfort as well as dizziness. She was found at the scene bradycardia. She had RBBB, LBBB and marked sinus bradycardia on EKG on admis manasa, which was resolved after admission. The patient did not have any further symptoms. Her cardia c enzymes remained negative. BNP is normal. TSH is normal. At this point, Cardiology is consulted and evaluation is pending. Patient may benefit from outpatient Holter monitoring. As long as if Cardiology okay today, then we will consider discharging her home later on today. I have seen and examined this patient bedside. VITAL SIGNS: Currently, temperature 97.4, pulse 60 regular, respiratory rate 20, saturation 97% on r oom air, blood pressure 126/68, weight 206 pounds. GENERAL: The patient is currently alert, awake, no obvious acute distress. HEAD: Normocephalic, atraumatic. LUNGS: Clear to auscultation without any rhonchi. CARDIAC: S1, S2 regular. No murmur. ABDOMEN: Soft and benign without any tenderness, no peritoneal sign. EXTREMITIES: No edema, no calf tenderness. Good distal pulsation. NEUROLOGIC: Nonfocal examination. REVIEW OF SYSTEMS: Reviewed with him and negative.
--- NOTE | 2017-11-15 10:43 | PDOC.PN ---
- Subjective Encounter Start Date: 11/15/17 Encounter Start Time: 09:45 -: old records requested/rev Patient seen and examined. No new complaints. No overnight events - Objective Resuscitation Status: Resuscitation Status DNR:Do Not Resuscitate MAR Reviewed: Yes Vital Signs & Weight: Vital Signs (12 hours) Temp Pulse Resp BP BP Pulse Ox 11/15/17 07:23 97.4 F L 60 20 126/68 97 11/15/17 03:58 97.5 F L 60 18 132/65 97 11/14/17 23:52 97.4 F L 65 18 140/73 97 Weight Weight 206 lb 1.6 oz I&O: 11/14/17 11/15/17 11/16/17 06:59 06:59 06:59 Intake Total 200 Output Total 400 Balance -200 Result Diagrams: 11/14/17 20:00 11/14/17 20:00 Radiology Reviewed by me: Yes (CT abdomen reviewed) EKG Reviewed by me: Yes (EKG reviewed) Phys Exam - Physical Examination Constitutional: NAD HEENT: PERRLA, moist MMs, sclera anicteric Neck: no JVD, supple Respiratory: no wheezing, no rales, no rhonchi Cardiovascular: RRR, no significant murmur, no rub Gastrointestinal: soft, non-tender, no distention, positive bowel sounds Musculoskeletal: no edema, pulses present Neurological: non-focal, normal sensation, moves all 4 limbs Psychiatric: normal affect, A&O x 3 Skin: no rash, normal turgor Dx/Plan (1) Bradyarrhythmia Code(s): I49.8 - OTHER SPECIFIED CARDIAC ARRHYTHMIAS Status: Acute Comment: on admission, suspecting SSS, currently resolved (2) Alcoholic fatty liver Code(s): K70.0 - ALCOHOLIC FATTY LIVER Status: Chronic (3) Anxiety Code(s): F41.9 - ANXIETY DISORDER, UNSPECIFIED Status: Chronic (4) COPD (chronic obstructive pulmonary disease) Status: Chronic (5) GERD (gastroesophageal reflux disease) Code(s): K21.9 - GASTRO-ESOPHAGEAL REFLUX DISEASE WITHOUT ESOPHAGITIS Status: Chronic (6) Obesity (BMI 30.0-34.9) Code(s): E66.9 - OBESITY, UNSPECIFIED Status: Chronic - Plan cont current plan of care * cardiology consulted * may need holter? * further plan as per cardiology, possible discharge * medication reviewed as below * symptomatic treatment. Review of Systems - Review of Systems Eyes: negative: Pain, Vision Change, Conjunctivae Inflammation, Eyelid Inflammation, Redness, Other ENT: negative: Ear Pain, Ear Discharge, Nose Pain, Nose Discharge, Nose Congestion, Mouth Pain, Mouth Swelling, Throat Pain, Throat Swelling, Other Respiratory: negative: Cough, Dry, Shortness of Breath, Hemoptysis, SOB with Excertion, Pleuritic Pain, Sputum, Wheezing Cardiovascular: negative: chest pain, palpitations, orthopnea, paroxysmal nocturnal dyspnea, edema, light headedness, other Gastrointestinal: negative: Nausea, Vomiting, Abdominal Pain, Diarrhea, Constipation, Melena, Hematochezia, Other Genitourinary: negative: Dysuria, Frequency, Incontinence, Hematuria, Retention , Other Musculoskeletal: negative: Neck Pain, Shoulder Pain, Arm Pain, Back Pain, Hand Pain, Leg Pain, Foot Pain, Other Skin: negative: Rash, Lesions, Jaret, Bruising, Other - Medications/Allergies Allergies/Adverse Reactions: Allergies Allergy/AdvReac Type Severity Reaction Status Date / Time acetaminophen [From Tylenol] Allergy Verified 09/20/17 03:48 NSAIDS (Non-Steroidal Allergy Verified 09/20/17 03:48 Anti-Inflamma Penicillins Allergy Verified 09/20/17 03:48 Medications: Current Medications Acetaminophen (Tylenol) 650 mg PO Q4H PRN PRN Reason: Headache/Fever/Mild Pain (1-3) Al Hydroxide/Mg Hydroxide (Maalox) 15 ml PO Q4H PRN PRN Reason: Heartburn or Indigestion Artificial Tears (Tears Naturale) 0 drop EA EYE PRN PRN PRN Reason: Dry Eyes Aspirin (Ecotrin) 81 mg PO DAILY [facility] Last Admin: 11/15/17 08:59 Dose: 81 mg Cholecalciferol (Vitamin D) 800 units PO DAILY [facility] Last Admin: 11/15/17 08:59 Dose: 800 units Enoxaparin Sodium (Lovenox) 40 mg SC 0900 [facility] Last Admin: 11/15/17 10:38 Dose: Not Given Famotidine (Pepcid) 20 mg PO BID [facility] Last Admin: 11/15/17 08:59 Dose: 20 mg Fish Oil (Fish Oil) 1,000 mg PO DAILY [facility] Last Admin: 11/15/17 08:59 Dose: 1,000 mg Folic Acid (Folvite) 1 mg PO DAILY [facility] Last Admin: 11/15/17 08:59 Dose: 1 mg Guaifenesin (Robitussin Sf) 200 mg PO Q4H PRN PRN Reason: Cough Hydralazine HCl (Apresoline) 10 mg SLOW IVP Q4H PRN PRN Reason: Systolic BP > 180 Sodium Chloride (Normal Saline 0.9%) 1,000 mls @ 80 mls/hr IV .[id number] [facility] Last Admin: 11/15/17 06:20 Dose: 1,000 mls Loperamide HCl (Imodium) 2 mg PO PRN PRN PRN Reason: Diarrhea/Loose Stools Loratadine (Claritin) 10 mg PO DAILYPRN PRN PRN Reason: Sinus Symptoms Magnesium Hydroxide (Milk Of Magnesium) 30 ml PO DAILYPRN PRN PRN Reason: Constipation Meclizine HCl (Antivert) 25 mg PO BID [facility] Last Admin: 11/15/17 08:59 Dose: 25 mg Mineral Oil/White Petrolatum (Eucerin Cream) 0 gm TOP BIDPRN PRN PRN Reason: Dry Skin Ondansetron HCl (Zofran Odt) 4 mg PO Q6H PRN PRN Reason: Nausea/Vomiting Ondansetron HCl (Zofran) 4 mg IVP Q6H PRN PRN Reason: Nausea/Vomiting Pantoprazole Sodium (Protonix) 40 mg PO DAILY [facility] Last Admin: 11/15/17 09:00 Dose: 40 mg Phenol (Chloraseptic [place] 180 Ml Bot) 0 ml PO PRN PRN PRN Reason: Sore Throat Senna (Senokot) 2 tab PO HSPRN PRN PRN Reason: Constipation Sodium Chloride (Flush - Normal Saline) 10 ml IVF Q12HR [facility] Last Admin: 11/15/17 09:00 Dose: 10 ml Sodium Chloride (Flush - Normal Saline) 10 ml IVF PRN PRN PRN Reason: Saline Flush Sodium Chloride ([place] Nasal [place] 0.65%) 0 ml EA NARE QIDPRN PRN PRN Reason: Nasal Congestion Temazepam (Restoril) 15 mg PO HSPRN PRN PRN Reason: Insomnia
[2017-11-15 11:36] VITALS: BP 134/65
--- NOTE | 2017-11-16 08:13 | CON ---
DATE OF CONSULTATION: 11/15/2017 REASON FOR CONSULTATION: Bradycardia. HISTORY OF PRESENT ILLNESS: Ms. Tavarez is a very pleasant 77-year-old woman whom I have seen and e valuated in the past. She recently presented to the observation unit with bradycardia. She did not have any symptoms. She states she had taken her heart rate and blood pressure and was found to have a heart rate in the 30s-40s. She summoned EMS. She did not complain of chest pain, pressure, or other associated symptoms. PAST MEDICAL HISTORY: COPD, osteopenia, acid reflux, vertigo. PAST SURGICAL HISTORY: Knee surgery, hysterectomy. SOCIAL HISTORY: No current tobacco or alcohol use. ALLERGIES: NONSTEROIDAL THERAPY. HOME MEDICATIONS: Aspirin, vitamin D3, and fish oil. REVIEW OF SYSTEMS: Ten-point review of systems reviewed and as above, otherwise negative. PHYSICAL EXAMINATION: VITAL SIGNS: Blood pressure 134/65, pulse 60, temperature 97.4. GENERAL: Patient is a pleasant female who is in no acute distress. The patient appears her stated ag e. NEUROLOGIC: The patient is alert and oriented times 3 with no focal neurologic deficits. HEENT: Sclerae without icterus. Mouth has moist mucous membranes with normal pallor. NECK: No JVD. Carotid upstroke brisk. No bruits bilaterally. LUNGS: Clear to auscultation with unlabored respirations. BACK: No scoliosis or kyphosis. CARDIAC: Regular rate and rhythm with normal S1 and S2. No S3 or S4 noted. No significant rubs, mur murs, thrills, or gallops noted throughout the precordium. PMI is not displaced. There is no parast ernal heave. ABDOMEN: Soft, nontender, nondistended. No peritoneal signs present. No hepatosplenomegaly. No abn ormal striae. EXTREMITIES: 2+ femoral and 2+ dorsalis pedis pulses. No cyanosis, clubbing, or edema. SKIN: No gross abnormalities. PERTINENT LABS: CK and troponin negative. IMPRESSION: Bradycardia. RECOMMENDATIONS: Ms. Tavarez did not have any symptoms. I recommend a 3-week event recorder to ass ess for any significant symptomatic dysrhythmias. It would be okay from my standpoint to discharge h ome with close outpatient followup.
== END 2017-11-15 14:31 | disposition home or self-care (01) ==
LOC: ERS 19:01 → 2SW 22:15
PROVIDERS: ADMIT Internal Medicine; ATTEND Internal Medicine
DX: R00.1 Bradycardia, unspecified (principal); R42 Dizziness and giddiness; R53.1 Weakness; I45.2 Bifascicular block; J44.9 Chronic obstructive pulmonary disease, unspecified; M85.80 Other specified disorders of bone density and structure, unspecified site; K21.9 Gastro-esophageal reflux disease without esophagitis; R10.9 Unspecified abdominal pain; K70.0 Alcoholic fatty liver; F41.9 Anxiety disorder, unspecified; E66.9 Obesity, unspecified; Z68.32 Body mass index [BMI] 32.0-32.9, adult; Z79.82 Long term (current) use of aspirin; Z79.899 Other long term (current) drug therapy; Z88.0 Allergy status to penicillin; Z88.6 Allergy status to analgesic agent; Z88.8 Allergy status to other drugs, medicaments and biological substances
CPT/HCPCS: 71045; 74177; 80053; 82553; 83880; 84443; 84484 ×3; 85025; 93005; 96360; 96361; 99285; G0378 ×2; 36415

== ENCOUNTER 2018-01-04 22:09 | Inpatient (IN) | payer MEDICARE, MEDICAID ==
[2018-01-04 23:01] LABS: #Basophils 0.1 thou/uL (0.0-0.2); #Eosinphils 0.6 thou/uL (0.0-0.7); #Lymphocytes 2.7 thou/uL (1.20-3.40); #Monocytes 0.5 thou/uL (0.11-0.59); %Basophils 0.7 % (0.0-1.0); %Eosinophils 6.6 % (0.0-10.0); %Lymphocytes 30.3 % (21.0-51.0); %Monocytes 5.8 % (0.0-10.0); %Neutrophils 56.7 % (42.0-75.0); Hemoglobin 14.9 g/dL (12.0-16.0); Mean Corpuscular HGB CONC 33.4 g/dL (32.0-36.0); Mean Corpuscular Hemoglobin 31.3 pg (27.0-31.0); Mean Corpuscular Volume 93.6 fL (78.0-98.0); Platelet Count 276 thou/uL (130-400); RBC Distribution Width 11.7 % (11.5-14.5); Red Blood Cell (RBC) Count 4.75 mill/uL (4.20-5.40); White Blood Cell (WBC) Count 8.8 thou/uL (4.8-10.8)
[2018-01-04 23:26] LABS: ALT (SGPT) 20 U/L (8-55); AST (SGOT) 24 U/L (5-34); Alkaline Phosphatase 153 U/L (40-150); Anion Gap 13 mmol/L (10-20); BUN (Urea Nitrogen) 14 mg/dL (9.8-20.1); Bilirubin, Total 0.6 mg/dL (0.2-1.2); Calc. Creatinine Clearance 0 mL/min (70-130); Calcium 9.2 mg/dL (7.8-10.44); Carbon Dioxide 26 mmol/L (23-31); Chloride 104 mmol/L (98-107); Estimated GFR-MDRD 71; Globulin 3.5 g/dL (2.4-3.5); Glucose 131 mg/dL (83-110); Potassium 3.5 mmol/L (3.5-5.1); Protein, Total 7.5 g/dL (6.0-8.3); Sodium 139 mmol/L (136-145)
--- NOTE | 2018-01-04 23:26 | RAD ---
FRONTAL RADIOGRAPH CHEST PORTABLE UPRIGHT 01/04/18 COMPARISON: 11/14/17. HISTORY: Chest pain. FINDINGS: There is no pneumothorax, pleural fluid, lobar consolidation or alveolar edema. Heart and mediastinal contours are grossly unremarkable. There is gas seen within the transverse colon and stomach, simila r when compared to prior imaging. There is atherosclerotic calcification of a prominent thoracic aort ic knob, stable as well. IMPRESSION: Stable appearance of the chest - no acute findings. POS: [facility]
[2018-01-04 23:30] LABS: Troponin I Less than 0.010 ng/mL (< 0.028)
[2018-01-05 02:11] LABS: Troponin I Less than 0.010 ng/mL (< 0.028)
[2018-01-05 05:03] LABS: Troponin I Less than 0.010 ng/mL (< 0.028)
[2018-01-05] MEDS ORDERED: Senokot S 8.6-50 MG TAB PO PRN (09:46)
[2018-01-05] MEDS ORDERED: Guaifenesin DM 100-10/5 ML UDCUP PO PRN (09:46)
[2018-01-05 13:24] VITALS: BMI 31.6
[2018-01-05] MEDS: Ondansetron PF 4 MG/2 ML Vial IVP PRN (16:55)
--- NOTE | 2018-01-05 19:29 | HP ---
PRIMARY CARE PHYSICIAN: Dr. Foster in [place]. REASON FOR ADMISSION: Symptomatic bradycardia. HISTORY OF PRESENT ILLNESS: The patient gives history of feeling weird yesterday evening. She lives by herself and she called her friend. She came to check on her. Her blood pressure was elevated, but her heart rate was 41. They soon called EMS and the patient was transferred here. No complaints of chest pain or shortness of breath when this happened. She is unable to describe what her weird feeling was. The patient states anytime her heart rate goes down, she gets these feelings. No complaints of fever, palpitations, PND, or orthopnea. She normally ambulates with a walker. The patient states this is due to her osteopenia and weak bones. PAST MEDICAL AND SURGICAL HISTORY: Recent hospitalization for bradycardia, pneumonia, history of stroke, COPD due to passive smoking, osteopenia, possible AFib, GERD, right knee replacement, hysterectomy. No prior cardiac workup per the patient, but she has had a stress test done in 01/2017, which showed normal myocardial perfusion scan with normal wall motion and EF of 66%. The patient has had another stress test done in 09/2015, which showed EF of 74% with no fixed or reversible defects then. Echo done in 09/2015 showed ejection fraction of 60-65%, pulmonary artery pressures were in the mid 40s systolic. The patient was found to be in mild sinus bradycardia when on the echo. CURRENT MEDICATIONS: 1. Prilosec 10 mg p.o. daily. 2. Aspirin 81 mg p.o. daily. 3. Meclizine 25 mg twice daily for vertigo. 4. Fish oil 1000 mg p.o. daily. 5. Folic acid 1 mg p.o. daily. 6. Vitamin D3 of 800 units p.o. daily. ALLERGIES: ALLERGIC TO TYLENOL, NSAIDS, AND PENICILLIN, BUT SHE IS COMFORTABLE TAKING ASPIRIN. PERSONAL HISTORY: Quit drinking alcohol in the 80s. Drank heavily for a year and a half or so prior to that. Does not abuse drugs. She was exposed to passive smoking during early part of her life, but has never smoked. FAMILY HISTORY: Mother in her 70s. She was on a ventilator due to severe emphysema prior to her . She had history of cancer of the breast, which was removed completely. Father of bone cancer at the age of 73 years. Two sisters who of bone cancer and brain cancer. CODE STATUS: Full. POWER OF WEB APPLICATIONS DEVELOPER: Her son, Mr. Palacios or Mr. Harris; number to reach Mr. Harris is [phone]. REVIEW OF SYSTEMS: CONSTITUTIONAL: Negative for weight loss or gain, ability to conduct usual activities. SKIN: Negative for rash, itching. EYES: Negative for double vision, pain. ENT/MOUTH: Negative for nose bleeding, neck stiffness, pain, tenderness. CARDIOVASCULAR: Negative for palpitations, dyspnea on exertion, orthopnea. RESPIRATORY: Negative for shortness of breath, wheezing, cough, hemoptysis, fever or night sweats. GASTROINTESTINAL: Negative for poor appetite, abdominal pain, heartburn, nausea, vomiting, constipation, or diarrhea. GENITOURINARY: Negative for urgency, frequency, dysuria, nocturia. MUSCULOSKELETAL: Negative for pain, swelling. NEUROLOGIC/PSYCHIATRIC: Negative for anxiety, depression. ALLERGY/IMMUNOLOGIC: Negative for skin rash, bleeding tendency. PHYSICAL EXAMINATION: GENERAL: The patient is a 77-year-old female, who is currently not in any acute distress. VITAL SIGNS: Blood pressure 146/64; heart rate on arrival was 43, currently 70; respiratory rate 20 per minute; temperature 97.8 degrees Fahrenheit; and saturating 96% on room air. NECK: Supple. No elevated JVD. EYES: Extraocular muscles intact. Pupils reacting to light. Oral cavity, mucous membranes are moist. No exudates or congestion. CARDIOVASCULAR: S1 and S2 heard. Regular rhythm. RESPIRATORY: Air entry 1+ bilateral. No rales. Scattered rhonchi plus. No wheezes. ABDOMEN: Soft. Bowel sounds heard. No tenderness, rigidity, or guarding. EXTREMITIES: No peripheral edema or calf tenderness. VASCULAR: Peripheral pulses 1+ bilateral. No ischemic ulcerations or gangrenes. CENTRAL NERVOUS SYSTEM: No gross focal deficits noted. The patient moves all 4 extremities with no focal deficits. PSYCHIATRIC: The patient's mood is euthymic. No hallucinations or delusions. DIAGNOSTIC STUDIES: EKG done on arrival showed sinus bradycardia at 42 beats per minute with bifascicular block and QRS duration of 140 msec, this was at 10:20 p.m. Repeat EKG done around midnight showed normal sinus rhythm at 66 beats per minute with left bundle branch block. Troponin x3 is negative. Albumin is 4.0, BUN 14, creatinine 0.7, serum glucose is 131. The CBC was within normal limits. Chest x-ray done showed no acute findings. CLINICAL IMPRESSION AND PLAN: The patient will be under observation on telemetry for symptomatic bradycardia. She has had these recurrent episodes, likely has sick sinus syndrome. The patient also has history of atrial fibrillation, but currently is in sinus rhythm. Current rate is 70 per minute, but when she arrived, she was in the 40s. Also, when she got symptomatic, she was in the 40s at home. The patient likely is a candidate for pacemaker placement. We will consult Dr. Nichols, who is on-call for Cardiology. We will continue her aspirin, fish oil, meclizine, omeprazole as before. Please note, the patient is not on any AV es blockers. She will be kept n.p.o. after midnight for possible pacemaker placement in the morning if she is a candidate for the same. Job ID: [id number]
--- NOTE | 2018-01-05 20:33 | CON ---
DATE OF CONSULTATION: 01/05/2018 PRIMARY SHREDDING MACHINE TENDER: Juan Antonio Nichols MD HISTORY OF PRESENT ILLNESS: Ms. Tavarez is a very pleasant 77-year-old white female, who comes to the hospital for not feeling well. There is a history of chest pain on the record; however, when asking Ms. Tavarez, she denies any chest pain. She said that she has had some pain when she would cough, which has been going on for the last week, but this is the only pain that she complains of. She tells me that she was not feeling well. She called 911 and they arrived and her heart rate was in the 40s, so she decided to come in for further evaluation. She had an EKG and was found to be with a right bundle-branch block in the 40s. A repeat EKG after nebulization was given, showed a left bundle-branch block in the 60s. Currently , Ms. Tavarez feels back to normal. She feels she has been dealing with an upper respiratory infection, might have had a fever, but this is all subjective. PAST MEDICAL HISTORY: 1. Recent admission for bradycardia. 2. COPD. 3. Osteopenia. 4. Acid reflux. 5. Vertigo. PAST SURGICAL HISTORY: 1. Knee surgery. 2. Hysterectomy. SOCIAL HISTORY: No alcohol, tobacco, or drugs. ALLERGIES: NSAIDS. MEDICATIONS: Outpatient medications: 1. Aspirin daily. 2. Vitamin D3. 3. Fish oil. REVIEW OF SYSTEMS: A 12-point review of systems is negative other than stated in the history of present illness. PHYSICAL EXAMINATION: VITAL SIGNS: Temperature 98.1, pulse 72, respiratory rate 20, sating 96% on room air, blood pressure 127/56. GENERAL: Awake, alert, oriented x3, in no distress. HEENT: Normocephalic and atraumatic. NECK: Supple. LUNGS: Clear. CARDIOVASCULAR: S1 and S2. No S3, S4. No murmurs. ABDOMEN: Soft. Positive bowel sounds. EXTREMITIES: No edema. SKIN: Warm and dry. LABORATORY DATA: Laboratory work was reviewed. CBC is unremarkable. Normal white count. Normal differential. Hemoglobin 14.9. Coags; APTT was normal. Chemistries were unremarkable. Troponin was undetectable x3. Albumin of 4.0. EKG was reviewed. Initial EKG shows a 2:1 sinus rhythm at 80; however, there is a 2:1 AV block with a right bundle-branch block. A repeat EKG afterwards once her heart rate was in the 60s, shows sinus rhythm with a left bundle branch block. Most recent echocardiogram was in 2015 and showed an EF of 60% to 65%. Most recent evaluation of LF function was in January 2017, at which point, she had a nuclear stress test here in the hospital and showed an EF of 66%. ASSESSMENT AND PLAN: 1. Symptomatic bradycardia. 2. A 2:1 atrioventricular block. 3. Right bundle-branch block with bifascicular block with alternating left bundle-branch block. PLAN: - Class I indications for pacemaker placement. I spoke with Ms. Tavarez about the need for pacemaker and she is on the fence. Initially, she had a lot of questions, which were all answered appropriately. She is very nervous about this. She seems a little depressed as well with the fact that her kids are very estranged from her, and she has not heard from them in years. She wanted time to decide whether she wanted a pacemaker or not. I saw her probably about 3:00 p.m. I just received the call not too long ago stating that she has thought about it, she has prayed about this, and she decided that she does want to proceed with the pacemaker. I will ask one of my partners to see if they are able to get this performed tomorrow. We will leave her n.p.o. for the midnight in hopes to getting a permanent pacemaker in the morning. - We will get an echocardiogram. Thank you for letting us participate in the care of this patient. We will follow. Job ID: [id number]
[2018-01-05] MEDS: Famotidine 20 MG TAB PO SCH (20:57)
[2018-01-05] MEDS: Meclizine HCl 25 MG TAB PO SCH (20:57)
[2018-01-05] MEDS ORDERED: traMADol HCl 50 MG TAB PO SCH (22:30)
[2018-01-06 05:44] LABS: Anion Gap 9 mmol/L (10-20); BUN (Urea Nitrogen) 12 mg/dL (9.8-20.1); Calc. Creatinine Clearance 93 mL/min (70-130); Calcium 9.1 mg/dL (7.8-10.44); Carbon Dioxide 27 mmol/L (23-31); Chloride 106 mmol/L (98-107); Estimated GFR-MDRD 74; Glucose 96 mg/dL (83-110); Sodium 138 mmol/L (136-145)
[2018-01-06 05:47] LABS: #Basophils 0.1 thou/uL (0.0-0.2); #Eosinphils 0.6 thou/uL (0.0-0.7); #Lymphocytes 1.9 thou/uL (1.20-3.40); #Monocytes 0.5 thou/uL (0.11-0.59); #Neutrophils 2.6 thou/uL (1.40-6.50); %Eosinophils 10.8 % (0.0-10.0); %Lymphocytes 33.7 % (21.0-51.0); %Monocytes 8.2 % (0.0-10.0); %Neutrophils 46.4 % (42.0-75.0); Hemoglobin 13.6 g/dL (12.0-16.0); Mean Corpuscular HGB CONC 32.9 g/dL (32.0-36.0); Mean Corpuscular Hemoglobin 31.4 pg (27.0-31.0); Mean Corpuscular Volume 95.2 fL (78.0-98.0); Mean Platelet Volume 7.9 fL (7.4-10.4); Platelet Count 254 thou/uL (130-400); RBC Distribution Width 11.6 % (11.5-14.5); Red Blood Cell (RBC) Count 4.33 mill/uL (4.20-5.40); White Blood Cell (WBC) Count 5.7 thou/uL (4.8-10.8)
[2018-01-06] MEDS ORDERED: Levofloxacin 500 mg/D5W 100 ml Premix Bag ONE (08:11)
[2018-01-06] MEDS ORDERED: Clindamycin/D5W 600 mg/50 ml Premix Bag ONE (08:11)
[2018-01-06] MEDS ORDERED: Lidocaine 1% (PF) 30 ML VIAL ONE (08:11)
[2018-01-06] MEDS ORDERED: Vancomycin HCl 500 MG VIAL ONE (08:40)
[2018-01-06] MEDS ORDERED: Midazolam HCl 2 mg/2 ml Vial ONE (08:41)
[2018-01-06] MEDS: Enoxaparin Sodium 40 MG/0.4 ML SYRINGE SC SCH (09:00)
[2018-01-06] MEDS: Fish Oil 1,000 MG CAP PO SCH (09:52)
[2018-01-06] MEDS: Meclizine HCl 25 MG TAB PO SCH ×2 (09:52→20:27)
[2018-01-06] MEDS: Folic Acid 1 MG TAB PO SCH (09:52)
[2018-01-06] MEDS: Aspirin 81 mg Enteric Coated Tablet PO SCH (09:52)
[2018-01-06] MEDS: Famotidine 20 MG TAB PO SCH ×2 (09:52→20:27)
--- NOTE | 2018-01-06 11:05 | PDOC.PN ---
- Subjective Encounter Start Date: 01/06/18 Encounter Start Time: 10:00 Subjective: no sob, just got her pacemaker, a bit drowsy but oriented - Objective Resuscitation Status - Order Detail: 01/05/18 09:43 Resuscitation Status Routine Resuscitation Status: FULL: Full Resuscitation MAR Reviewed: Yes Vital Signs & Weight: Vital Signs (12 hours) Temp Pulse Resp BP BP Pulse Ox 01/06/18 09:20 97.6 F 60 16 121/65 95 01/06/18 07:39 98.4 F 53 L 18 100/53 L 94 L 01/06/18 05:00 97.7 F 67 16 93/64 93 L 01/06/18 00:00 98.7 F 60 12 126/59 L 93 L Weight Weight 202 lb 3 oz I&O: 01/05/18 01/06/18 01/07/18 06:59 06:59 06:59 Intake Total 710 Output Total 0 Balance 710 Result Diagrams: 01/06/18 05:19 01/06/18 05:19 Phys Exam - Physical Examination HEENT: PERRLA, moist MMs Neck: no JVD, supple Respiratory: no wheezing, no rales Cardiovascular: RRR, no significant murmur Gastrointestinal: soft, non-tender, positive bowel sounds Musculoskeletal: no edema, pulses present Neurological: non-focal, moves all 4 limbs Dx/Plan (1) Symptomatic bradycardia Code(s): R00.1 - BRADYCARDIA, UNSPECIFIED Status: Acute Comment: likely SSS (2) S/P cardiac pacemaker procedure Status: Acute (3) Anxiety Code(s): F41.9 - ANXIETY DISORDER, UNSPECIFIED Status: Chronic (4) COPD (chronic obstructive pulmonary disease) Status: Chronic Qualifiers: COPD type: unspecified COPD Qualified Code(s): J44.9 - Chronic obstructive pulmonary disease, unspecified (5) GERD (gastroesophageal reflux disease) Code(s): K21.9 - GASTRO-ESOPHAGEAL REFLUX DISEASE WITHOUT ESOPHAGITIS Status: Chronic Qualifiers: Esophagitis presence: esophagitis presence not specified Qualified Code(s) : K21.9 - Gastro-esophageal reflux disease without esophagitis (6) Obesity (BMI 30.0-34.9) Code(s): E66.9 - OBESITY, UNSPECIFIED Status: Chronic - Plan post pacemaker doing well -: is in sinus on telemetry with 60 beats/min, not pacing -: continue asp, fish oil, nebs prn -: dc plan per cardiology adv * . Review of Systems - Medications/Allergies Allergies/Adverse Reactions: Allergies Allergy/AdvReac Type Severity Reaction Status Date / Time acetaminophen [From Tylenol] Allergy Verified 09/20/17 03:48 NSAIDS (Non-Steroidal Allergy Verified 09/20/17 03:48 Anti-Inflamma Penicillins Allergy Verified 09/20/17 03:48 Medications: Current Medications Albuterol/Ipratropium (Duoneb) 3 ml NEB [id number] PRN PRN Reason: SOB &/or Wheezing Aspirin (Ecotrin) 81 mg PO DAILY [facility] Last Admin: 01/06/18 09:52 Dose: 81 mg Enoxaparin Sodium (Lovenox) 40 mg SC 09 [facility] Last Admin: 01/06/18 09:00 Dose: Not Given Famotidine (Pepcid) 20 mg PO BID [facility] Last Admin: 01/06/18 09:52 Dose: 20 mg Fish Oil (Fish Oil) 1,000 mg PO DAILY [facility] Last Admin: 01/06/18 09:52 Dose: 1,000 mg Folic Acid (Folvite) 1 mg PO DAILY [facility] Last Admin: 01/06/18 09:52 Dose: 1 mg Guaifenesin/Dextromethorphan (Robitussin Dm) 15 ml PO Q4H PRN PRN Reason: Cough Meclizine HCl (Antivert) 25 mg PO BID [facility] Last Admin: 01/06/18 09:52 Dose: 25 mg Ondansetron HCl (Zofran) 4 mg IVP Q6H PRN PRN Reason: Nausea/Vomiting Last Admin: 01/05/18 16:55 Dose: 4 mg Pantoprazole Sodium (Protonix) 40 mg PO BID [facility] Last Admin: 01/06/18 09:52 Dose: 40 mg Senna/Docusate Sodium (Senokot S) 2 tab PO BID PRN PRN Reason: Constipation Sodium Chloride (Flush - Normal Saline) 10 ml IVF Q12HR [facility] Last Admin: 01/06/18 09:53 Dose: 10 ml Sodium Chloride (Flush - Normal Saline) 10 ml IVF PRN PRN PRN Reason: Saline Flush
--- NOTE | 2018-01-06 11:42 | RAD ---
PORTABLE CHEST: HISTORY: Post pacemaker placement. COMPARISON: 03/06/2017 exam. FINDINGS: Heart size is enlarged. A pacemaker is in place. I do not see any signs of pneumothorax. Lungs are clear of infiltrates. IMPRESSION: 1. Pacemaker placement. No signs of pneumothorax. 2. Cardiomegaly. 3. Aorta is noted to be tortuous and may be slightly aneurysmal, difficult to assess on a portable e xam. POS: [facility]PC
[2018-01-06] MEDS ORDERED: Morphine 4 MG/ML VIAL ONE (12:10)
[2018-01-06] MEDS: Morphine 2 MG/ML SYRINGE SLOW IVP SCH ×2 (12:16→17:51)
--- NOTE | 2018-01-06 23:56 | CCL ---
DATE OR PROCEDURE: 01/06/18 DATE OF ADMISSION: 01/05/18 INDICATIONS FOR PROCEDURE: 77-year-old female with second degree AV heart block type II with intermittent bradycardia which is s ymptomatic. She was advised to undergo dual chamber pacemaker insertion. This was performed today without difficu lty or complication. She was implanted with a dual chamber pacemaker from [employer]. This is an MRI c ompatible device. There were two screw-in leads placed. One in the atrium and one in the ventricle. T he full dictated note is in the chart. She was set with an upper rate of 120 and lower rate of 60.
[2018-01-07] MEDS: Morphine 2 MG/ML SYRINGE SLOW IVP PRN ×2 (03:14→09:23)
[2018-01-07] MEDS: Ondansetron PF 4 MG/2 ML Vial IVP PRN (03:20)
[2018-01-07] MEDS: Fish Oil 1,000 MG CAP PO SCH (09:09)
[2018-01-07] MEDS: Famotidine 20 MG TAB PO SCH (09:09)
[2018-01-07] MEDS: Meclizine HCl 25 MG TAB PO SCH (09:10)
[2018-01-07] MEDS: Folic Acid 1 MG TAB PO SCH (09:10)
[2018-01-07] MEDS: Aspirin 81 mg Enteric Coated Tablet PO SCH (09:10)
[2018-01-07] MEDS: Enoxaparin Sodium 40 MG/0.4 ML SYRINGE SC SCH (09:11)
--- NOTE | 2018-01-07 12:41 | PDOC.PN ---
- Subjective Encounter Start Date: 01/07/18 Encounter Start Time: 09:00 Subjective: has pain at pcm insertion site, no sob or palp -: has been ambulating with rw on the floor - Objective Resuscitation Status - Order Detail: 01/05/18 09:43 Resuscitation Status Routine Resuscitation Status: FULL: Full Resuscitation MAR Reviewed: Yes Vital Signs & Weight: Vital Signs (12 hours) Temp Pulse Resp BP Pulse Ox 01/07/18 11:52 98.3 F 77 22 H 153/84 H 94 L 01/07/18 08:00 94 L 01/07/18 07:56 98 F 64 16 121/70 93 L 01/07/18 03:24 98.1 F 60 16 132/73 93 L Weight Weight 202 lb 3 oz I&O: 01/06/18 01/07/18 01/08/18 06:59 06:59 06:59 Intake Total 710 240 Output Total 0 900 Balance 710 -660 Result Diagrams: 01/06/18 05:19 01/06/18 05:19 Phys Exam - Physical Examination HEENT: PERRLA, moist MMs Neck: no JVD, supple Respiratory: no wheezing, no rales Cardiovascular: RRR, no significant murmur pcm insertion site is clean, no hematoma Gastrointestinal: soft, non-tender, positive bowel sounds Musculoskeletal: no edema, pulses present Neurological: non-focal, moves all 4 limbs Psychiatric: normal affect, A&O x 3 Dx/Plan (1) Symptomatic bradycardia Code(s): R00.1 - BRADYCARDIA, UNSPECIFIED Status: Acute Comment: likely SSS (2) S/P cardiac pacemaker procedure Status: Acute Comment: dual chamber [employer]tronic-mri compatible (3) Anxiety Code(s): F41.9 - ANXIETY DISORDER, UNSPECIFIED Status: Chronic (4) COPD (chronic obstructive pulmonary disease) Status: Chronic Qualifiers: COPD type: unspecified COPD Qualified Code(s): J44.9 - Chronic obstructive pulmonary disease, unspecified (5) GERD (gastroesophageal reflux disease) Code(s): K21.9 - GASTRO-ESOPHAGEAL REFLUX DISEASE WITHOUT ESOPHAGITIS Status: Chronic Qualifiers: Esophagitis presence: esophagitis presence not specified Qualified Code(s) : K21.9 - Gastro-esophageal reflux disease without esophagitis (6) Obesity (BMI 30.0-34.9) Code(s): E66.9 - OBESITY, UNSPECIFIED Status: Chronic - Plan hemostable -: may dc home if ok with cardiology -: ultram prn for pain, has nsaid allergy -: post pcm instructions * .
--- NOTE | 2018-01-07 15:29 | EKG ---
Test Reason : Blood Pressure : / mmHG Vent. Rate : 066 BPM Atrial Rate : 066 BPM P-R Int : 194 ms QRS Dur : 148 ms QT Int : 476 ms P-R-T Axes : 039 029 103 degrees QTc Int : 499 ms Normal sinus rhythm Left bundle branch block Abnormal ECG Confirmed by ALEC MOORE DO ([id number]), offline editor TRISH MAGAÑA ([id number]) on 01/07/2018 3:28:53 PM Referred By: Confirmed By:ALEC MOORE DO
--- NOTE | 2018-01-07 15:29 | EKG ---
Test Reason : CP Blood Pressure : / mmHG Vent. Rate : 042 BPM Atrial Rate : 042 BPM P-R Int : 146 ms QRS Dur : 140 ms QT Int : 558 ms P-R-T Axes : 022 -67 077 degrees QTc Int : 465 ms Marked sinus bradycardia Right bundle branch block Left anterior fascicular block Bifascicular block Left ventricular hypertrophy with repolarization abnormality Abnormal ECG Confirmed by ALEC MOORE DO ([id number]), purchase request editor TRISH MAGAÑA ([id number]) on 01/07/2018 3:28:52 PM Referred By: CHRIS Confirmed By:ALEC MOORE DO
[2018-01-07 16:06] VITALS: BP 133/71; TEMP 99.3
[2018-01-07] MEDS ORDERED: traMADol HCl 50 MG TAB PO PRN (17:38)
--- NOTE | 2018-01-09 07:48 | DIS ---
DATE OF ADMISSION: 01/06/2018 DATE OF DISCHARGE: 01/07/2018 DISCHARGE DISPOSITION: Home. PRIMARY DISCHARGE DIAGNOSES: High-degree AV es block with symptomatic bradycardia, status post dual-chamber pacemaker, which is [employer] and MRI compatible. SECONDARY DISCHARGE DIAGNOSES: Anxiety disorder, gastroesophageal reflux disease, chronic obstructive pulmonary disease, and obesity. PROCEDURES DONE DURING HOSPITALIZATION: The patient has had dual-chamber pacemaker insertion from [employer], which is MRI compatible, placed on 01/06/[address] Collins. Postprocedure, chest x-ray done showed no pneumothorax. H and H 13 and 41 and platelet count 254. BUN and creatinine 12 and 0.7. Cardiac enzymes x3 negative. DISCHARGE MEDICATIONS: 1. Aspirin 81 mg p.o. daily. 2. Fish oil 1000 mg p.o. daily. 3. Folic acid 1 mg p.o. daily. 4. Meclizine 25 mg b.i.d, prn. 5. Omeprazole 20 mg b.i.d. 6. Vitamin D3 800 units p.o. daily. 7. Ultram p.r.n. for pain. ALLERGIES: ALLERGIC TO NSAIDS, PENICILLIN, AND TYLENOL. INPATIENT CONSULT: Dr. Collins for Cardiology. DISCHARGE PLAN: The patient to follow up with Dr. Collins as advised and primary care physician in 1 week. BRIEF COURSE DURING HOSPITALIZATION: The patient initially came in with complaints of feeling weird. When she checked her pulse, it was 41. On arrival, the patient had heart rate in the same range. The patient has had similar episode during her previous hospitalization here and had refused pacemaker then. In view of her recurrent symptomatic bradycardia, the patient has had consultation with Dr. Fried/Dr. Collins. She has had dual-chamber pacemaker placement after she consented. Postprocedure, the patient is hemodynamically stable. She will be shortly discharged home. Post pacemaker procedure instructions will be given prior to discharge. Please note I have seen and examined patient on the day of discharge. Job ID: [id number] [facility]
== END 2018-01-07 18:12 | disposition home or self-care (01) | DRG 244 ==
LOC: ERS 22:09 → ERHOLD 01-05 01:59 → 2SW 01-05 13:06 → OBSVTOIN 01-06 12:48
PROVIDERS: ADMIT Internal Medicine; ATTEND Internal Medicine
PROC: 0JH606Z Insertion of Pacemaker, Dual Chamber into Chest Subcutaneous Tissue and Fascia, Open Approach (ICD-10-PCS; principal; 2018-01-06)
PROC: 02HK3JZ Insertion of Pacemaker Lead into Right Ventricle, Percutaneous Approach (ICD-10-PCS; 2018-01-06)
PROC: 02H63JZ Insertion of Pacemaker Lead into Right Atrium, Percutaneous Approach (ICD-10-PCS; 2018-01-06)
DX: I49.5 Sick sinus syndrome (principal); F41.9 Anxiety disorder, unspecified; F32.9 Major depressive disorder, single episode, unspecified; J44.9 Chronic obstructive pulmonary disease, unspecified; E66.9 Obesity, unspecified; Z68.31 Body mass index [BMI] 31.0-31.9, adult; Z88.8 Allergy status to other drugs, medicaments and biological substances; Z88.6 Allergy status to analgesic agent; Z86.73 Personal history of transient ischemic attack (TIA), and cerebral infarction without residual deficits; Z77.22 Contact with and (suspected) exposure to environmental tobacco smoke (acute) (chronic); M85.80 Other specified disorders of bone density and structure, unspecified site; K21.9 Gastro-esophageal reflux disease without esophagitis; I48.91 Unspecified atrial fibrillation; Z96.651 Presence of right artificial knee joint; Z79.899 Other long term (current) drug therapy; Z79.82 Long term (current) use of aspirin; I44.1 Atrioventricular block, second degree; I45.10 Unspecified right bundle-branch block
CPT/HCPCS: 33208; 36415; 71045; 80048; 80053; 84484; 85025; 85730; 93005; 93010; 93798; 94640; 99152; C1785; C1898; J1650; J1956; J2001; J2250; J2270; J2405; J3370; J3490; J7620

== ENCOUNTER 2018-06-28 15:20 | Emergency (ER) | payer MEDICARE, MEDICAID ==
--- NOTE | 2018-06-28 17:25 | RAD ---
3 views lumbar spine. HISTORY: Back pain AP, lateral and coned-down views lumbar spine obtained. Images demonstrate levoscoliosis centered at the L2 level. Multilevel lumbar disc space height loss and osteophytes seen compatible with changes of spondylosis at L2-3 and L3-4. IMPRESSION: levoscoliosis and multilevel lumbar changes of spondylosis.
== END 2018-06-28 18:11 | disposition home or self-care (01) ==
LOC: ERS 15:20
DX: M54.5 Low back pain (principal); J44.9 Chronic obstructive pulmonary disease, unspecified; K21.9 Gastro-esophageal reflux disease without esophagitis; I48.91 Unspecified atrial fibrillation; F41.9 Anxiety disorder, unspecified
CPT/HCPCS: 72100

== ENCOUNTER 2018-08-07 12:44 | Emergency (ER) | payer MEDICARE, MEDICAID ==
[2018-08-07 13:48] LABS: #Basophils 0.1 thou/uL (0.0-0.2); #Eosinphils 0.5 thou/uL (0.0-0.7); #Lymphocytes 2.4 thou/uL (1.20-3.40); #Monocytes 0.5 thou/uL (0.11-0.59); #Neutrophils 4.3 thou/uL (1.40-6.50); %Basophils 0.7 % (0.0-1.0); %Eosinophils 6.5 % (0.0-10.0); %Lymphocytes 31.4 % (21.0-51.0); %Monocytes 5.8 % (0.0-10.0); %Neutrophils 55.7 % (42.0-75.0); Hemoglobin 14.7 g/dL (12.0-16.0); Mean Corpuscular HGB CONC 33.1 g/dL (32.0-36.0); Mean Corpuscular Hemoglobin 31.3 pg (27.0-31.0); Mean Corpuscular Volume 94.4 fL (78.0-98.0); Mean Platelet Volume 8.2 fL (7.4-10.4); Platelet Count 295 thou/uL (130-400); RBC Distribution Width 11.9 % (11.5-14.5); Red Blood Cell (RBC) Count 4.69 mill/uL (4.20-5.40); White Blood Cell (WBC) Count 7.7 thou/uL (4.8-10.8)
--- NOTE | 2018-08-07 14:01 | RAD ---
EXAM: CHEST ONE VIEW HISTORY: Dysuria. Weakness and dizziness. COMPARISON: 01/06/2018. FINDINGS: A dual-lead left subclavian cardiac pacemaking device remains in place. Cardiac silhouette and pulmon wendy vasculature are within normal limits. Minimal linear scar versus atelectasis is present at the left lung base. The lungs are otherwise clear. Gaseous distention of the stomach is present. No other interval change. IMPRESSION: 1. No acute cardiopulmonary process. 2. Gaseous distention of the stomach.
[2018-08-07 14:12] LABS: ALT (SGPT) 22 U/L (8-55); AST (SGOT) 20 U/L (5-34); Albumin 4.3 g/dL (3.4-4.8); Alkaline Phosphatase 145 U/L (40-150); Anion Gap 13 mmol/L (10-20); BUN (Urea Nitrogen) 7 mg/dL (9.8-20.1); Bilirubin, Total 0.5 mg/dL (0.2-1.2); Calc. Creatinine Clearance 0 mL/min (70-130); Calcium 9.3 mg/dL (7.8-10.44); Carbon Dioxide 28 mmol/L (23-31); Chloride 102 mmol/L (98-107); Estimated GFR-MDRD 60; Globulin 3.3 g/dL (2.4-3.5); Glucose 131 mg/dL (83-110); Protein, Total 7.6 g/dL (6.0-8.3); Sodium 139 mmol/L (136-145)
[2018-08-07 17:47] LABS: Bilirubin Negative (Negative); Blood, Urine Negative (Negative); Clarity CLOUDY (Clear); Glucose, Urine (Dipstick) Negative (Negative); Leukocyte Large (Negative); Nitrite Negative (Negative); Protein, Urine (Dipstick) Negative (Neg-Trace); Urobilinogen 0.2 mg/dL (0.2-1.0)
[2018-08-07 17:48] LABS: Bacteria/HPF 1+ HPF (None Seen); Hyaline Casts/LPF 0-3 HYALINE CAST LPF (0-3 Hyaline); Pathc Cast-AUWi Flag 0.54 (0-2.49); RBC/HPF 0-3 HPF (0-3); Squamous Epithelial 0-3 HPF (0-3); WBC/HPF 21-50 HPF (0-3)
== END 2018-08-07 18:25 | disposition home or self-care (01) ==
LOC: ERS 12:44
DX: N81.10 Cystocele, unspecified (principal); N39.0 Urinary tract infection, site not specified; F41.9 Anxiety disorder, unspecified
CPT/HCPCS: 36415; 71045; 80053; 81003; 81015; 83605; 84484; 85025; 87077; 87086; 87186; 93005

== ENCOUNTER 2019-01-26 16:07 | Inpatient (IN) | payer MEDICARE, MEDICAID ==
[2019-01-26] MEDS ORDERED: methylPREDNISolone Sod Succ/PF 125 MG/2 ML VIAL ONE (17:12)
[2019-01-26 17:26] LABS: #Eosinphils 0.5 thou/uL (0.0-0.7); #Monocytes 0.6 thou/uL (0.11-0.59); #Neutrophils 4.5 thou/uL (1.40-6.50); %Basophils 0.5 % (0.0-1.0); %Eosinophils 6.3 % (0.0-10.0); %Lymphocytes 34.8 % (21.0-51.0); %Monocytes 6.7 % (0.0-10.0); %Neutrophils 51.7 % (42.0-75.0); Hemoglobin 13.9 g/dL (12.0-16.0); Mean Corpuscular HGB CONC 33.3 g/dL (32.0-36.0); Mean Corpuscular Hemoglobin 31.7 pg (27.0-31.0); Platelet Count 204 thou/uL (130-400); RBC Distribution Width 11.4 % (11.5-14.5); Red Blood Cell (RBC) Count 4.38 mill/uL (4.20-5.40); White Blood Cell (WBC) Count 8.7 thou/uL (4.8-10.8)
--- NOTE | 2019-01-26 17:33 | RAD ---
XR Chest 1 View Portable HISTORY: Dyspnea and chest pain COMPARISON: 08/07/2018 study FINDINGS: Heart size appears slightly enlarged with a pacemaker present. The lungs are clear of infil trates. There are no signs of failure. IMPRESSION: Mild cardiomegaly.
[2019-01-26] MEDS ORDERED: Azithromycin 500 MG VIAL ONE (17:36)
[2019-01-26] MEDS ORDERED: Sodium Chloride 0.9% 0 ML ONE (17:36)
[2019-01-26] MEDS ORDERED: Albuterol Sulfate 2.5 mg/0.5 ml Neb ONE (17:42)
[2019-01-26 17:49] LABS: ALT (SGPT) 23 U/L (8-55); AST (SGOT) 27 U/L (5-34); Albumin 3.8 g/dL (3.4-4.8); Alkaline Phosphatase 155 U/L (40-110); Anion Gap 14 mmol/L (10-20); BUN (Urea Nitrogen) 13 mg/dL (9.8-20.1); Bilirubin, Total 0.5 mg/dL (0.2-1.2); Calc. Creatinine Clearance 0 mL/min (70-130); Calcium 8.5 mg/dL (7.8-10.44); Carbon Dioxide 24 mmol/L (23-31); Chloride 107 mmol/L (98-107); Estimated GFR-MDRD 78; Globulin 2.8 g/dL (2.4-3.5); Glucose 95 mg/dL (83-110); Potassium 3.8 mmol/L (3.5-5.1); Protein, Total 6.6 g/dL (6.0-8.3); Sodium 141 mmol/L (136-145)
[2019-01-26 18:19] LABS: Bacteria/HPF 1+ HPF (None Seen); Bilirubin Negative (Negative); Blood, Urine 1+ (Negative); Clarity Turbid (Clear); Glucose, Urine (Dipstick) Normal (Negative); Leukocyte 500 Leu/uL (Negative); Nitrite Negative (Negative); Protein, Urine (Dipstick) 10 mg/dL (Neg-Trace); Urobilinogen Normal mg/dL (Less than 2); WBC/HPF Greater than 50 HPF (0-3)
[2019-01-26] MEDS ORDERED: Oseltamivir 75 MG CAP PO SCH (19:45)
[2019-01-26] MEDS ORDERED: Sodium Chloride 0.9% 1,000 ML IV SCH (21:30)
[2019-01-26] MEDS ORDERED: HYDROcodone/Acetaminophen 7.5/325 mg Tablet PO PRN (22:49)
[2019-01-26] MEDS ORDERED: Ondansetron PF 4 MG/2 ML Vial IVP PRN (22:49)
[2019-01-26] MEDS ORDERED: Calcium Carbonate 500 MG ChewTAB PO PRN (22:49)
[2019-01-26] MEDS ORDERED: Guaifenesin DM 100-10/5 ML UDCUP PO PRN (22:49)
[2019-01-26] MEDS ORDERED: Acetaminophen 325 MG TAB PO PRN (22:49)
[2019-01-26] MEDS ORDERED: guaiFENesin ER 600 MG TAB PO SCH (23:15)
--- NOTE | 2019-01-26 23:41 | HP ---
PRESENTING COMPLAINT: Shortness of breath, chest tightness, nausea and vomiting since one day. HISTORY OF PRESENT ILLNESS: The patient is a 78-year-old female with past medical history of COPD, diastolic CHF with last echo showing EF of 66%, who presented because of new onset shortness of breath and chest tightness since yesterday, associated with intermittent nausea and one episode of vomiting. She has actually also be feeling weak. She admits to feeling of chest congestion. She admits to some mild wheezing but since resolved. She was brought by EMS. On presentation, she was noted with O2 saturation of 93%, but slightly labored breathing. Initial workup shows evidence of flu, influenza type A. She has been admitted for further management. She denies any recent sick contacts. She states she lives with her daughter. She denies any sputum or chest pain. PAST MEDICAL HISTORY: Significant for history of COPD, osteopenia, history of intermittent transient atrial fibrillation in the past, history of GERD, history of bradycardia, history of diastolic CHF. PAST SURGICAL HISTORY: Hysterectomy, right knee replacement, as well as AICD pacemaker placement. HOME MEDICATIONS: See full medication list. The patient states she takes [id number] medication with fish oil, zinc and calcium as needed. She states she is not taking any prescribed medication at this time. ALLERGIES: TYLENOL, NSAID, PENICILLIN. SOCIAL HISTORY: The patient admits to former alcohol use in the past. She denies any tobacco or illicit drug use. She resides with daughter in the community. She is functional and ambulatory at baseline. FAMILY HISTORY: No history of CVA, but significant for breast cancer. REVIEW OF SYSTEMS: All systems reviewed, x14 were negative except as mentioned above. PHYSICAL EXAMINATION: VITAL SIGNS: Blood pressure of 107/56, pulse of 94, respiratory rate of 20, O2 saturation of 94% on room air. GENERAL: Obese elderly female, lying in bed, not in any distress. HEENT: Head is atraumatic, normocephalic. Pupils are equal, reactive to light. NECK: No JVD. No carotid bruits. RESPIRATORY: Good air entry except for mild bi-basal increased egophony, but no overt crepitations. CARDIOVASCULAR: S1, S2. Regular. GI: Abdomen is full, soft, nontender. No suprapubic fullness. EXTREMITIES: No pedal edema. No calf tenderness. NEURO: The patient is conversant, alert, oriented x3. LABORATORY DATA: Influenza type A positive. Influenza type B negative. WBC 8.7, hemoglobin 13.9, neutrophils 51%. Sodium 141, potassium 3.8, alkaline phosphatase 155. Troponin 0.011. BNP of 25, creatinine 0.7. Urinalysis was positive for leukocyte esterase as well as greater than 50 wbc's. IMAGING DATA: Chest x-ray shows no acute intrathoracic abnormality. EKG shows paced rhythm. IMPRESSION: 1. Influenza pneumonia. 2. Urinary tract infection. 3. History of systolic congestive heart failure-stable. PLAN: We will admit the patient in observation. We will manage the patient for the following. 1. Influenza type A infection. We will start the patient on Tamiflu. Gentle IV fluid as tolerated. By giving history of systolic CHF, we will increase p.o. intake for now. We do IV Zofran as needed for symptom control. We will start PPI to avoid GERD symptoms. 2. UTI. We will start the patient on empirical antibiotics with Levaquin. Follow urine culture. 3. Hypertension-controlled. 4. History of COPD. Do DuoNeb p.r.n. 5. Resume the patient [id number] medications. 6. DVT prophylaxis, subcutaneous heparin. 7. Advanced directives, the patient is a full code. TIME SPENT: Total time spent in review of record, discussion with patient, and evaluation, greater than 55 minutes. We will consult PT and OT for gait assessment. Job ID: [id number]
[2019-01-27 05:39] LABS: #Lymphocytes 0.6 thou/uL (1.20-3.40); #Monocytes 0.1 thou/uL (0.11-0.59); #Neutrophils 6.9 thou/uL (1.40-6.50); %Basophils 0.2 % (0.0-1.0); %Eosinophils 0.1 % (0.0-10.0); %Lymphocytes 7.8 % (21.0-51.0); %Monocytes 1.1 % (0.0-10.0); %Neutrophils 90.8 % (42.0-75.0); Mean Corpuscular Hemoglobin 31.9 pg (27.0-31.0); Mean Platelet Volume 7.7 fL (7.4-10.4); Platelet Count 219 thou/uL (130-400); RBC Distribution Width 11.5 % (11.5-14.5); Red Blood Cell (RBC) Count 4.09 mill/uL (4.20-5.40); White Blood Cell (WBC) Count 7.6 thou/uL (4.8-10.8)
[2019-01-27 06:01] LABS: Anion Gap 13 mmol/L (10-20); BUN (Urea Nitrogen) 12 mg/dL (9.8-20.1); Calc. Creatinine Clearance 84 mL/min (70-130); Calcium 8.8 mg/dL (7.8-10.44); Carbon Dioxide 22 mmol/L (23-31); Chloride 108 mmol/L (98-107); Estimated GFR-MDRD 70; Glucose 165 mg/dL (83-110); Potassium 3.8 mmol/L (3.5-5.1); Sodium 139 mmol/L (136-145)
[2019-01-27] MEDS: guaiFENesin ER 600 MG TAB PO SCH ×2 (09:35→20:36)
[2019-01-27] MEDS: Famotidine 20 MG TAB PO SCH ×2 (09:35→20:36)
[2019-01-27] MEDS: Fish Oil 1,000 MG CAP PO SCH (09:36)
[2019-01-27] MEDS: Cholecalciferol (Vitamin D3) 400 UNITS TAB PO SCH (09:36)
[2019-01-27] MEDS: Oseltamivir 75 MG CAP PO SCH ×2 (09:36→20:36)
[2019-01-27] MEDS: Folic Acid 1 MG TAB PO SCH (09:37)
[2019-01-27] MEDS: Enoxaparin Sodium 30 MG/0.3 ML SYRINGE SC SCH (09:37)
[2019-01-27] MEDS ORDERED: Polyethylene Glycol 3350 17 GM Packet PO PRN (12:20)
--- NOTE | 2019-01-27 13:45 | PDOC.HOSPP ---
- Subjective Encounter Date: 01/27/19 Encounter Time: 11:15 Subjective: pt up in bed feels weak all over. - Objective Vital Signs & Weight: Vital Signs (12 hours) Temp Pulse Resp BP Pulse Ox 01/27/19 08:00 93 L 01/27/19 07:37 98.3 F 63 18 99/59 L 93 L 01/27/19 07:34 98.1 F 77 16 125/74 97 01/27/19 05:21 98.1 F 66 18 97/60 94 L Weight Weight 195 lb I&O: 01/26/19 01/27/19 01/28/19 06:59 06:59 06:59 Intake Total 1240 Balance 1240 Result Diagrams: 01/27/19 05:29 01/27/19 05:29 Hospitalist ROS - Review of Systems Respiratory: denies: cough, dry, shortness of breath, hemoptysis, SOB with excertion, pleuritic pain, sputum, wheezing, other Cardiovascular: denies: chest pain, palpitations, orthopnea, paroxysmal noc. dyspnea, edema, light headedness, other Gastrointestinal: denies: nausea, vomiting, abdominal pain, diarrhea, constipation, melena, hematochezia, other - Medication Medications: Active Medications Generic Name Dose Route Start Last Admin Trade Name Freq PRN Reason Stop Dose Admin Cholecalciferol 800 units 01/27/19 09:00 01/27/19 09:36 Vitamin D PO 800 units DAILY FLORECITA Administration Enoxaparin Sodium 30 mg 01/27/19 09:00 01/27/19 09:37 Lovenox SC 30 mg 0900 FLORECITA Administration Famotidine 20 mg 01/27/19 09:00 01/27/19 09:35 Pepcid PO 20 mg BID FLORECITA Administration Fish Oil 1,000 mg 01/27/19 09:00 01/27/19 09:36 Fish Oil PO 1,000 mg DAILY FLORECITA Administration Folic Acid 1 mg 01/27/19 09:00 01/27/19 09:37 Folvite PO 1 mg DAILY FLORECITA Administration Guaifenesin 1,200 mg 01/27/19 09:00 01/27/19 09:35 Mucinex PO 1,200 mg Q12HR FLORECITA Administration Guaifenesin/Dextromethorphan 15 ml 01/26/19 22:49 01/27/19 05:45 Robitussin Dm PO 15 ml Q4H PRN Administration Cough Levofloxacin 250 mg 01/27/19 06:00 01/27/19 05:01 Levaquin PO 250 mg 0600 FLORECITA Administration Oseltamivir Phosphate 75 mg 01/27/19 09:00 01/27/19 09:36 Tamiflu PO 01/31/19 21:01 75 mg BID FLORECITA Administration - Exam Neck: negative: supple, symmetric, no JVD, no thyromegaly, no lymphadenopathy, no carotid bruit, JVD Heart: negative: RRR, no murmur, no gallops, no rubs, normal peripheral pulses, irregular, diminshed peripheral pulses, murmur present, II/IV, III/IV Respiratory: rhonchi Hosp A/P (1) Flu Code(s): J11.1 - FLU DUE TO UNIDENTIFIED INFLUENZA VIRUS W OTH RESP MANIFEST Status: Acute (2) Influenza A Code(s): J10.1 - FLU DUE TO OTH IDENT INFLUENZA VIRUS W OTH RESP MANIFEST Status: Acute (3) Anxiety Code(s): F41.9 - ANXIETY DISORDER, UNSPECIFIED Status: Chronic (4) GERD (gastroesophageal reflux disease) Code(s): K21.9 - GASTRO-ESOPHAGEAL REFLUX DISEASE WITHOUT ESOPHAGITIS Status: Chronic Qualifiers: (5) Obesity (BMI 30.0-34.9) Code(s): E66.9 - OBESITY, UNSPECIFIED Status: Chronic (6) UTI (urinary tract infection) Status: Acute - Plan will continue abx will increase her dose. will continue his neb tx. will await urine cx too.
[2019-01-27 15:40] VITALS: BMI 30.5
[2019-01-27] MEDS: Senokot S 8.6-50 MG TAB PO SCH (20:36)
[2019-01-28] MEDS: Cholecalciferol (Vitamin D3) 400 UNITS TAB PO SCH (08:34)
[2019-01-28] MEDS: Famotidine 20 MG TAB PO SCH ×2 (08:34→20:20)
[2019-01-28] MEDS: guaiFENesin ER 600 MG TAB PO SCH ×2 (08:35→20:20)
[2019-01-28] MEDS: Senokot S 8.6-50 MG TAB PO SCH ×2 (08:35→20:20)
[2019-01-28] MEDS: Fish Oil 1,000 MG CAP PO SCH (08:35)
[2019-01-28] MEDS: Oseltamivir 75 MG CAP PO SCH ×2 (08:35→20:20)
[2019-01-28] MEDS: Folic Acid 1 MG TAB PO SCH (08:36)
[2019-01-28] MEDS: Enoxaparin Sodium 30 MG/0.3 ML SYRINGE SC SCH (08:38)
--- NOTE | 2019-01-28 14:06 | PDOC.HOSPP ---
- Subjective Encounter Date: 01/28/19 Encounter Time: 09:45 Subjective: pt up in bed feels well today. she states that she had a syncopal episode before she came in to the hospital. she had not notified anyone of this. - Objective Vital Signs & Weight: Vital Signs (12 hours) Temp Pulse Resp BP Pulse Ox 01/28/19 11:36 97.9 F 67 16 117/75 100 01/28/19 08:00 98.3 F 59 L 16 120/74 97 01/28/19 04:43 97.3 F L 60 18 112/63 96 Weight Admit Weight 195 lb Weight 195 lb I&O: 01/27/19 01/28/19 01/29/19 06:59 06:59 06:59 Intake Total 1240 480 Balance 1240 480 Result Diagrams: 01/27/19 05:29 01/27/19 05:29 Hospitalist ROS - Review of Systems Respiratory: denies: cough, dry, shortness of breath, hemoptysis, SOB with excertion, pleuritic pain, sputum, wheezing, other Cardiovascular: denies: chest pain, palpitations, orthopnea, paroxysmal noc. dyspnea, edema, light headedness, other Gastrointestinal: denies: nausea, vomiting, abdominal pain, diarrhea, constipation, melena, hematochezia, other - Medication Medications: Active Medications Generic Name Dose Route Start Last Admin Trade Name Freq PRN Reason Stop Dose Admin Cholecalciferol 800 units 01/27/19 09:00 01/28/19 08:34 Vitamin D PO 800 units DAILY FLORECITA Administration Enoxaparin Sodium 30 mg 01/27/19 09:00 01/28/19 08:38 Lovenox SC 30 mg 09 FLORECITA Administration Famotidine 20 mg 01/27/19 09:00 01/28/19 08:34 Pepcid PO 20 mg BID FLORECITA Administration Fish Oil 1,000 mg 01/27/19 09:00 01/28/19 08:35 Fish Oil PO 1,000 mg DAILY FLORECITA Administration Folic Acid 1 mg 01/27/19 09:00 01/28/19 08:36 Folvite PO 1 mg DAILY FLORECITA Administration Guaifenesin 1,200 mg 01/27/19 09:00 01/28/19 08:35 Mucinex PO 1,200 mg Q12HR FLORECITA Administration Guaifenesin/Dextromethorphan 15 ml 01/26/19 22:49 01/27/19 05:45 Robitussin Dm PO 15 ml Q4H PRN Administration Cough Levofloxacin 500 mg 01/28/19 06:00 01/28/19 05:27 Levaquin PO 500 mg 0600 FLORECITA Administration Oseltamivir Phosphate 75 mg 01/27/19 09:00 01/28/19 08:35 Tamiflu PO 01/31/19 21:01 75 mg BID FLORECITA Administration Polyethylene Glycol 17 gm 01/27/19 12:20 01/28/19 08:34 Miralax PO 17 gm DAILYPRN PRN Administration Constipation Senna/Docusate Sodium 1 tab 01/27/19 21:00 01/28/19 08:35 Senokot S PO 1 tab BID FLORECITA Administration - Exam Neck: negative: supple, symmetric, no JVD, no thyromegaly, no lymphadenopathy, no carotid bruit, JVD Heart: negative: RRR, no murmur, no gallops, no rubs, normal peripheral pulses, irregular, diminshed peripheral pulses, murmur present, II/IV, III/IV Respiratory: negative: CTAB, no wheezes, no rales, no ronchi, normal chest expansion, no tachypnea, normal percussion, rales, rhonchi, tachypneic, wheezes Hosp A/P (1) Flu Code(s): J11.1 - FLU DUE TO UNIDENTIFIED INFLUENZA VIRUS W OTH RESP MANIFEST Status: Acute (2) Influenza A Code(s): J10.1 - FLU DUE TO OTH IDENT INFLUENZA VIRUS W OTH RESP MANIFEST Status: Acute (3) Anxiety Code(s): F41.9 - ANXIETY DISORDER, UNSPECIFIED Status: Chronic (4) GERD (gastroesophageal reflux disease) Code(s): K21.9 - GASTRO-ESOPHAGEAL REFLUX DISEASE WITHOUT ESOPHAGITIS Status: Chronic Qualifiers: (5) Obesity (BMI 30.0-34.9) Code(s): E66.9 - OBESITY, UNSPECIFIED Status: Chronic (6) UTI (urinary tract infection) Status: Acute (7) Syncope Code(s): R55 - SYNCOPE AND COLLAPSE Status: Acute - Plan will continue abx will increase her dose. will continue his neb tx. will await urine cx too. 01/28 will get an echo, she has a pacemaker. she currently feels well and has been walking around. i will interrogate her pacemaker. she does have a hx of smoking in the past and has a dx of copd.
[2019-01-29 07:28] VITALS: BP 121/81; TEMP 97.9
[2019-01-29] MEDS: guaiFENesin ER 600 MG TAB PO SCH (08:19)
[2019-01-29] MEDS: Folic Acid 1 MG TAB PO SCH (08:20)
[2019-01-29] MEDS: Fish Oil 1,000 MG CAP PO SCH (08:20)
[2019-01-29] MEDS: Famotidine 20 MG TAB PO SCH (08:20)
[2019-01-29] MEDS: Cholecalciferol (Vitamin D3) 400 UNITS TAB PO SCH (08:20)
[2019-01-29] MEDS: Senokot S 8.6-50 MG TAB PO SCH (08:20)
[2019-01-29] MEDS: Enoxaparin Sodium 30 MG/0.3 ML SYRINGE SC SCH (08:20)
[2019-01-29] MEDS: Oseltamivir 75 MG CAP PO SCH (08:20)
--- NOTE | 2019-01-30 14:33 | EKG ---
Test Reason : Blood Pressure : / mmHG Vent. Rate : 075 BPM Atrial Rate : 075 BPM P-R Int : 200 ms QRS Dur : 142 ms QT Int : 454 ms P-R-T Axes : 044 024 104 degrees QTc Int : 506 ms Sinus rhythm with Premature atrial complexes Left bundle branch block Abnormal ECG Confirmed by RONNIE RANGEL DO ([id number]), order editor PHI GORMAN ([id number]) on 01/30/2019 2:33:05 PM Referred By: Confirmed By:RONNIE RANGEL DO
--- NOTE | 2019-02-01 11:12 | DIS ---
DATE OF ADMISSION: 01/28/2019 DATE OF DISCHARGE: 01/29/2019 DISCHARGE DIAGNOSES: 1. Influenza A, possible pneumonia. 2. Urinary tract infection, resolved. Cultures were negative. 3. Shortness of breath. HOSPITAL COURSE: The patient is a very pleasant 78-year-old female, who initially presented to the hospital with complaints of shortness of breath. She was found to be influenza A positive. She was started on Tamiflu and also was put on prophylactic antibiotics. The patient states that she does have a history of bronchitis and pneumonias in the past. She has a history of former smoker, currently does not smoke. The patient continued to improve through the hospital stay. She was able to ambulate, did not require any oxygenation. The patient toward the day prior to discharge stated that before coming to the hospital she was feeling so unwell, that she had a syncopal episode. At this time, her pacemaker was interrogated. She had no arrhythmia that was noted. I also ordered an echocardiogram which indicated an EF of 40% to 45% with moderate mitral regurgitation, [id number] aortic regurgitation. Her left ventricle size was mildly depressed. Her previous echocardiogram that I have in the system is from 2012, which indicated an EF of 55% to 60%. The patient currently is chest pain free. She has no chest tightness, no shortness of breath. She is able to ambulate without any difficulties. Her BNP was normal. Her troponin x1 was normal. I have encouraged her to follow up with the fishing guide. The patient states that she does have an appointment with the fishing guide. HOME MEDICATIONS: The patient's home medications will be as of the following. She is going to be on 1. Levaquin 500 mg, so I am going to change that to doxycycline 100 mg twice a day. 2. Tamiflu 75 mg twice a day for two doses. 3. Fish oil. 4. Vitamin D. 5. Folic acid. PHYSICAL EXAMINATION: VITAL SIGNS: Temperature 98.3, pulse 61, respiratory rate 18, 96% on room air, blood pressure 110/66. GENERAL: She is awake, alert, and oriented x3. Does not appear in any distress. CV: S1, S2 present. No murmurs, rubs, or gallops. Again, she will be discharged home today. I have asked her to follow up with her primary and also with Cardiology. Job ID: [id number]
== END 2019-01-29 16:40 | disposition home or self-care (01) | DRG 689 ==
LOC: ERS 16:07 → T4-A 19:23 → OBSVTOIN 01-28 14:04
PROVIDERS: ADMIT Internal Medicine; ATTEND Internal Medicine
DX: N30.00 Acute cystitis without hematuria (principal); J10.00 Influenza due to other identified influenza virus with unspecified type of pneumonia; I50.32 Chronic diastolic (congestive) heart failure; J44.1 Chronic obstructive pulmonary disease with (acute) exacerbation; I11.0 Hypertensive heart disease with heart failure; I48.91 Unspecified atrial fibrillation; E66.9 Obesity, unspecified; K21.9 Gastro-esophageal reflux disease without esophagitis; F41.9 Anxiety disorder, unspecified; Z96.651 Presence of right artificial knee joint; Z79.01 Long term (current) use of anticoagulants; Z90.710 Acquired absence of both cervix and uterus; Z95.810 Presence of automatic (implantable) cardiac defibrillator; Z88.0 Allergy status to penicillin; Z88.8 Allergy status to other drugs, medicaments and biological substances; Z68.30 Body mass index [BMI] 30.0-30.9, adult; Z86.73 Personal history of transient ischemic attack (TIA), and cerebral infarction without residual deficits
CPT/HCPCS: 36415; 71045; 80048; 80053; 81003; 81015; 83880; 84484; 85025; 87804; 93005; 93306; 94640; J0456; J1650; J2930; J3490; J7611; J7620

== ENCOUNTER 2019-05-31 18:57 | Emergency (ER) | payer MEDICARE, MEDICAID ==
[~2019-05-31 18:57] MED LIST changes: -ISOVUE-370 76%-LOCM 1 ML ONE; +Iopamidol-370 76% 500 ML 1 ML ONE
[2019-05-31 19:41] LABS: #Basophils 0.1 thou/uL (0.0-0.2); #Eosinphils 0.5 thou/uL (0.0-0.7); #Lymphocytes 2.9 thou/uL (1.20-3.40); #Monocytes 0.8 thou/uL (0.11-0.59); #Neutrophils 6.3 thou/uL (1.40-6.50); %Basophils 0.7 % (0.0-1.0); %Eosinophils 5.2 % (0.0-10.0); %Lymphocytes 27.2 % (21.0-51.0); %Monocytes 7.4 % (0.0-10.0); %Neutrophils 59.5 % (42.0-75.0); Hemoglobin 14.5 g/dL (12.0-16.0); Mean Corpuscular HGB CONC 33.4 g/dL (32.0-36.0); Mean Corpuscular Hemoglobin 31.4 pg (27.0-31.0); Mean Corpuscular Volume 94.1 fL (78.0-98.0); Mean Platelet Volume 10.1 fL (7.4-10.4); Platelet Count 186 thou/uL (130-400); RBC Distribution Width 11.8 % (11.5-14.5); White Blood Cell (WBC) Count 10.5 thou/uL (4.8-10.8)
[2019-05-31 20:01] LABS: Clarity Clear (Clear)
[2019-05-31 20:02] LABS: Bacteria/HPF None Seen HPF (None Seen); Bilirubin Negative (Negative); Blood, Urine Negative (Negative); Glucose, Urine (Dipstick) Negative (Negative); Leukocyte Negative Leu/uL (Negative); Nitrite Negative (Negative); Protein, Urine (Dipstick) Negative (Neg-Trace); RBC/HPF 0-3 HPF (0-3); Squamous Epithelial None Seen HPF (0-3); Urobilinogen 0.2 mg/dL (Less than 2); WBC/HPF 0-3 HPF (0-3)
[2019-05-31 20:33] LABS: Chloride 104 mmol/L (98-107); Potassium 3.6 mmol/L (3.5-5.1); Sodium 136 mmol/L (136-145)
[2019-05-31 20:34] LABS: Calcium 9.1 mg/dL (7.8-10.44)
[2019-05-31 20:35] LABS: Globulin 3.1 g/dL (2.4-3.5); Glucose 91 mg/dL (83-110); Protein, Total 7.1 g/dL (6.0-8.3)
[2019-05-31 20:36] LABS: Anion Gap 14 mmol/L (10-20); Carbon Dioxide 22 mmol/L (23-31)
[2019-05-31 20:37] LABS: Bilirubin, Total 0.2 mg/dL (0.2-1.2)
[2019-05-31 20:38] LABS: Alkaline Phosphatase 155 U/L (40-110); Calc. Creatinine Clearance 0 mL/min (70-130); Estimated GFR-MDRD 70
[2019-05-31 20:39] LABS: BUN (Urea Nitrogen) 12 mg/dL (9.8-20.1)
[2019-05-31 20:40] LABS: AST (SGOT) 27 U/L (5-34)
[2019-05-31 20:41] LABS: ALT (SGPT) 17 U/L (8-55); Lipase 46 U/L (8-78)
--- NOTE | 2019-05-31 21:21 | CT ---
CT OF THE ABDOMEN AND PELVIS WITH CONTRAST: 05/31/19 COMPARISON: 11/14/17 HISTORY: Abdominal pain and dysuria for the past year. Possible bladder prolapse. TECHNIQUE: Multiple contiguous axial images were obtained in a CT of the abdomen and pelvis with IV contrast. Sa gittal and coronal reformats were performed. FINDINGS: The kidneys are small in size. Mild prominence of both ureters is seen without significant renal pelv is or calyceal dilatation. No calcifications are seen in either kidney. The liver, gallbladder, adren al glands, spleen, and pancreas are unremarkable. No free air, free fluid or stranding changes are se en in the abdomen or pelvis. The patient is status post hysterectomy. The urinary bladder does appear low in the pelvis and the patient may have either a cystocele or urethrocele. This is unchanged comp ared to the prior exam from 2018. The large and small bowel are unremarkable. No abdominal or pelvic lymphadenopathy are seen. Atherosclerotic calcifications are seen in the aorta. Degenerative changes are seen in the spine. The visualized inferior thorax and abdominal wall soft ti ssues are unremarkable. IMPRESSION: No evidence of acute intra-abdominal/pelvic abnormality. POS: EAA
== END 2019-05-31 22:19 | disposition home or self-care (01) ==
LOC: ERS 18:57
DX: R30.0 Dysuria (principal); R10.9 Unspecified abdominal pain; R10.817 Generalized abdominal tenderness; J44.9 Chronic obstructive pulmonary disease, unspecified; K21.9 Gastro-esophageal reflux disease without esophagitis; R16.0 Hepatomegaly, not elsewhere classified; F41.9 Anxiety disorder, unspecified
CPT/HCPCS: 36415; 51701; 74177; 80053; 81003; 83690; 85025; 87086; Q9967

== ENCOUNTER 2019-06-18 05:32 | Outpatient (CLI) | payer MEDICARE, MEDICAID, OTHER ==
--- NOTE | 2019-06-18 16:13 | EKG ---
Test Reason : Blood Pressure : / mmHG Vent. Rate : 069 BPM Atrial Rate : 069 BPM P-R Int : 230 ms QRS Dur : 136 ms QT Int : 434 ms P-R-T Axes : 032 056 262 degrees QTc Int : 465 ms Electronic atrial pacemaker Non-specific intra-ventricular conduction block Marked T wave abnormality, consider inferior ischemia Marked T wave abnormality, consider anterolateral ischemia Abnormal ECG When compared with ECG of 26-JAN-2019 16:48, Electronic atrial pacemaker has replaced Sinus rhythm T wave inversion now evident in Inferior leads T wave inversion more evident in Anterolateral leads QT has shortened Confirmed by SONIA AVERY, DR. Block ([id number]) on 06/18/2019 4:12:51 PM Referred By: ERIKA Confirmed By:DR. Mckayla SCOTT MD
== END 2019-06-18 05:33 | disposition home or self-care (01) ==
LOC: LABBT 05:32
PROVIDERS: ATTEND Obstetrics & Gynecology
DX: Z01.818 Encounter for other preprocedural examination (principal); N99.3 Prolapse of vaginal vault after hysterectomy
CPT/HCPCS: 93005; 93010

== ENCOUNTER 2019-06-18 08:00 | Inpatient (IN) | payer MEDICARE, MEDICAID, OTHER ==
[2019-06-18 10:34] VITALS: BMI 29.7
[2019-06-18 13:11] LABS: Hemoglobin 14.8 g/dL (12.0-16.0); Mean Corpuscular HGB CONC 31.8 g/dL (32.0-36.0); Mean Corpuscular Hemoglobin 30.8 pg (27.0-31.0); Mean Corpuscular Volume 96.9 fL (78.0-98.0); Mean Platelet Volume 8.2 fL (7.4-10.4); Platelet Count 259 thou/uL (130-400); RBC Distribution Width 11.9 % (11.5-14.5); Red Blood Cell (RBC) Count 4.82 mill/uL (4.20-5.40); White Blood Cell (WBC) Count 7.8 thou/uL (4.8-10.8)
[2019-06-18 13:30] LABS: Anion Gap 12 mmol/L (10-20); BUN (Urea Nitrogen) 9 mg/dL (9.8-20.1); Calc. Creatinine Clearance 0 mL/min (70-130); Calcium 9.1 mg/dL (7.8-10.44); Carbon Dioxide 25 mmol/L (23-31); Chloride 105 mmol/L (98-107); Estimated GFR-MDRD 76; Glucose 78 mg/dL (83-110); Potassium 3.8 mmol/L (3.5-5.1); Sodium 138 mmol/L (136-145)
[2019-06-18 18:13] LABS: SARS-CoV-2 MS2 Positive; SARS-CoV-2 N Gene Negative; SARS-CoV-2 S Gene Negative; SARS-CoV-2 orf1ab Negative
--- NOTE | 2019-06-21 09:42 | HP ---
DATE OF SURGERY: 06/21/2019. HISTORY OF PRESENT ILLNESS: Mrs. Tavarez is a 79-year-old white female with prior complete hysterectomy, who originally presented back on April 12, 2019. She had had cube type pessary placed vaginally by another physician, which remained in situ over a year. She was having a lot of pain and abnormal discharge noted and the pessary was removed. During removal of the pessary, it was noted the end of the stem component of the pessary had grown and embedded in the posterior vaginal sidewall on the right side. It was unable to remove it in the office. The end of the stem was cut and the remainder of the pessary was removed. She had evidence of vaginal vault prolapse 7 cm past the vaginal introital opening. Due to the COVID-19 issues, her surgery has been postponed until now. She is having significant discomfort with the prolapse of her vaginal vault. This is requiring the intermittent tramadol usage. She has tried pessaries in the past and has been unsuccessful. She is not sexually active, and she was discussed of [place] colpocleisis procedure, which she desires to proceed with. PAST MEDICAL HISTORY: Significant for bilateral tendinitis, vertigo, osteoarthritis, sinus bradycardia, hemorrhagic cystitis, gastroesophageal reflux disease, osteopenia, and chronic obstructive pulmonary disease. Her PCP is Dr. Dejuan Darden. PAST SURGICAL HISTORY: As noted, the complete hysterectomy and bladder suspension in the past. CURRENT MEDICATIONS: 1. Bisacodyl. 2. Calcium with vitamin D. 3. Eyedrops, tetrahydrozoline 0.05%. 4. Folic acid. 5. Meclizine 25 mg daily for the vertigo. 6. Omeprazole 20 mg daily. 7. Potassium and vitamin D. ALLERGIES: SHE HAS SUPPOSED ALLERGIES TO ACETAMINOPHEN, IBUPROFEN, AND PENICILLINS. OB HISTORY: A G5, P5, all vaginal deliveries. PHYSICAL EXAMINATION: VITAL SIGNS: Height 5 feet 7 inches, weight 191, BMI 29.9, blood pressure 118/62, pulse 77, respirations 18, O2 saturation on room air 97%. HEENT: Within normal limits. CHEST: Clear to auscultation. HEART: Regular rate and rhythm. S1 and S2 heart sounds. No murmurs, rubs, or gallops. ABDOMEN: Soft, nontender, nondistended with no palpable masses. PELVIC: The end of the button of the cube pessary 7 mm in size, which had grown into the vaginal mucosa with end of stem noted. This is on the right posterior vaginal sidewall. She is also noted to have complete vaginal vault prolapse, where it dropped 7 cm past the introitus. ASSESSMENT: A 79-year-old white female with complete vaginal vault prolapse with piece of embedded pessary from prolonged pessary placement. The patient is not sexually active. We discussed the [place] colpocleisis procedure, which would close off the vagina to treat the prolapse. We will also plan to remove the piece of pessary that is embedded in the vaginal mucosa. The patient has been on Premarin cream to help the vaginal tissue for surgical recovery. She is set for 06/21/2019 for the procedure. Job ID: [id number]
[2019-06-21] MEDS ORDERED: Lidocaine 1% w/Epinephrine 1:100K 20 ML VIAL ONE ×2 (12:13→13:49)
[2019-06-21] MEDS ORDERED: PHENYLEPHRINE-NS 100 MCG/ML 10 ML SYRINGE ONE (12:16)
[2019-06-21] MEDS ORDERED: Dexamethasone 20 MG/5 ML VIAL ONE (12:16)
[2019-06-21] MEDS ORDERED: Lidocaine 1% PF 5 ML VIAL ONE (12:16)
[2019-06-21] MEDS ORDERED: Ondansetron PF 4 MG/2 ML Vial ONE (12:16)
[2019-06-21] MEDS ORDERED: PROPOFOL 200 MG/20 ML VIAL ONE (12:16)
[2019-06-21] MEDS ORDERED: Fentanyl 100 MCG/2 ML VIAL ONE ×3 (12:17→16:04)
[2019-06-21] MEDS ORDERED: Levofloxacin 500 mg/D5W 100 ml Premix Bag ONE (12:27)
[2019-06-21] MEDS ORDERED: Ondansetron PF 4 MG/2 ML Vial IVP PRN (14:06)
[2019-06-21] MEDS ORDERED: Morphine 2 MG/ML SYRINGE SLOW IVP PRN (14:06)
[2019-06-21] MEDS ORDERED: diphenhydrAMINE 25 MG CAP PO PRN (14:06)
[2019-06-21] MEDS ORDERED: Bisacodyl 10 MG SUPP PR PRN (14:06)
[2019-06-21] MEDS ORDERED: traMADol HCl 50 MG TAB PO PRN ×2 (14:06→19:45)
[2019-06-21] MEDS ORDERED: Simethicone Chewable 80 MG TAB PO PRN (14:06)
[2019-06-21] MEDS ORDERED: Promethazine HCl 25 MG/ML VIAL IM PRN ×2 (14:06→14:24)
[2019-06-21] MEDS ORDERED: Ondansetron HCl/PF 4 MG/2 ML Vial IVP PRN (14:24)
[2019-06-21] MEDS ORDERED: Meperidine HCl/PF 25 MG/ML VIAL SLOW IVP PRN (14:24)
[2019-06-21] MEDS ORDERED: PACU-Morphine 4MG/ML VIAL SLOW IVP PRN (14:24)
[2019-06-21] MEDS ORDERED: Promethazine HCl 25 MG/ML VIAL SLOW IVP PRN (14:24)
[2019-06-21] MEDS ORDERED: Morphine 4 MG/ML VIAL SLOW IVP PRN (19:32)
[2019-06-21] MEDS: Lactated Ringer's 1,000 ML IV SCH (19:47)
--- NOTE | 2019-06-21 22:14 | OP ---
DATE OF PROCEDURE: 06/21/2019 PREOPERATIVE DIAGNOSIS: A 79-year-old white female with prior hysterectomy with total vaginal vault prolapse. POSTOPERATIVE DIAGNOSIS: A 79-year-old white female with prior hysterectomy with total vaginal vault prolapse. PROCEDURES PERFORMED: 1. Total colpocleisis. 2. Perineoplasty. [employer] SUPERINTENDENT SURGEON: Nathalie Connor PA-C ANESTHESIA: General with LMA. ANTIBIOTICS: 500 mg of Levaquin on-call to the OR. PATHOLOGY: None. COMPLICATIONS: None. FINDINGS: 1. Exam under anesthesia of the vaginal mucosa and vaginal vault did not show any evidence of remainder of the small piece of pessary that had previously been embedded, most likely it was self migrated to the surface. 2. The vaginal vault was noted to be prolapsed approximately softball size, amount of tissue past the vaginal introitus. This was reduced postprocedure. 3. Clear urine present in the Roy catheter pre- and post-procedure. DISPOSITION: To recovery room and then to the floor. DESCRIPTION OF PROCEDURE: The patient previously received informed consent in regard to surgery. She was taken back to the operating room, where she received a general endotracheal anesthetic agent. She was placed in the dorsal lithotomy position with Ben stirrups and prepped and draped in usual sterile fashion. Roy catheter was placed. The previously mentioned findings were noted. The most dependent portion of the vaginal vault prolapse was noted around the cuff line and 2 angles of this were grasped with two Allis clamps. Then two stay sutures of 2-0 Vicryl were placed at the angles. The rectangular markings were placed both anteriorly and posteriorly. Approximately a cm from each edge of the apex, where an epithelial island of the mucosa remained. The rectangles were marked anteriorly and posteriorly to the distance of the vaginal hymen toward the introitus. The vaginal mucosa was then infiltrated with 1% lidocaine with epinephrine both anteriorly and posteriorly. At this time, anteriorly, the most distal edge of the vaginal mucosa was incised with Metzenbaum scissors. The vaginal mucosa under the rectangular marked region was dissected sharply from the underlying muscularis just past the margin of the most hymenal region of the vaginal mucosa. The rectangular mucosa marking was then dissected and cut on the previously marked sites. This was repeated in likewise fashion on the posterior side again up to the hymenal ring, removing the vaginal mucosa and keeping the muscularis intact avoiding any entry into the peritoneum. Any bleeders were made hemostatic with Bovie cautery. Then, the side portions of the remaining portion of the vault prolapse mucosa were infiltrated with 1% lidocaine with epinephrine, and the side portions of the remaining rectangular mucosa segments on both right and left sides were removed in likewise fashion. Hemostasis was assured. I then took a 2-0 Vicryl suture. An approximately 1 cm from the remaining epithelial island at the apex that was tied with stay sutures. A pursestring suture was created approximately 1 cm throws, and then the epithelial island was then grasped by my cable splicer assistant inside the pursestring suture while this was tied down. Serial placement of the pursestring suture again working toward the introitus was carried out, where approximately 4 pursestring sutures of 2-0 Vicryl in a telescoping fashion were utilized to close off the vaginal vault defect just inside the introitus as was the last stitch being placed. The remainder of the anterior and posterior vaginal mucosa edges from the previous dissection was then plicated with [id number] sutures of 2-0 Vicryl suture securing hemostasis over the telescoping muscularis component. Hemostasis was confirmed. We then created a perineoplasty, where the posterior vaginal introitus was grasped at 4 o'clock and 8 o'clock. This area was infiltrated with 1% lidocaine with epinephrine. A laron-shaped incision was made incorporating some of the perineal tissue and the posterior vaginal mucosa. This was removed. Each bulbocavernosus muscle was then grasped with the tunneling with Okeefe scissors, right and left labia. An anchoring suture of 0 Vicryl was placed in a [id number] stitch fashion of the bulbocavernosus plicating that in the midline, decreasing the genital hiatus and tieding the perineal body. The remainder of this tissue was closed with 0 Vicryl suture and then the vaginal mucosa was closed with 2-0 Vicryl for hemostasis. A moistened vaginal packing was placed in remainder of the opening of the vagina for added hemostasis. Clear urine was draining from the Roy catheter. The patient was awakened from anesthesia and transferred to recovery room in stable condition. Job ID: [id number]
[2019-06-22 06:17] LABS: Hemoglobin 13.6 g/dL (12.0-16.0); Mean Corpuscular HGB CONC 32.2 g/dL (32.0-36.0); Mean Corpuscular Hemoglobin 31.2 pg (27.0-31.0); Mean Corpuscular Volume 96.8 fL (78.0-98.0); Platelet Count 252 thou/uL (130-400); RBC Distribution Width 11.7 % (11.5-14.5); Red Blood Cell (RBC) Count 4.36 mill/uL (4.20-5.40); White Blood Cell (WBC) Count 13.8 thou/uL (4.8-10.8)
[2019-06-22] MEDS: Lactated Ringer's 1,000 ML IV SCH (07:32)
--- NOTE | 2019-06-22 07:40 | PDOC.EVN ---
Event Note - Event Note Event Note: No pain this morning. No nausea. O:AFVSS. Perineum is dry. No prolapse of vagina noted. A/P: post op day 1 from total colpocleisis and perineoplasty. Voiding trial. D/ c home when able to void. Has f/u 4 weeks.
[2019-06-22] MEDS ORDERED: Calcium Carbonate 500 MG TAB PO SCH (08:00)
[2019-06-22] MEDS ORDERED: Fish Oil 1,000 MG CAP PO SCH (09:00)
[2019-06-22] MEDS ORDERED: GINGER ROOT 250 MG PO SCH (09:00)
[2019-06-22] MEDS ORDERED: Cyanocobalamin (Vitamin B-12) 1,000 MCG TAB PO SCH (09:00)
[2019-06-22] MEDS ORDERED: Folic Acid 1 MG TAB PO SCH (09:00)
[2019-06-22] MEDS: Docusate 100 MG CAP PO SCH ×2 (09:09→09:13)
[2019-06-22 11:46] VITALS: BP 110/56; TEMP 97.7
--- NOTE | 2019-06-23 02:41 | DIS ---
DATE OF ADMISSION: 06/21/2019 DATE OF DISCHARGE: 06/22/2019 DIAGNOSIS: Total vaginal vault prolapse after hysterectomy. PROCEDURES PERFORMED: 1. Total colpocleisis. 2. Perineoplasty. SUMMARY OF HOSPITAL COURSE: Ms. Tavarez is a 79-year-old white female with history total vaginal vault prolapse, who had had a pessary trial in the past with complications and not tolerating the pessary well, and decided for surgical intervention. She was treated with a total colpocleisis with perineorrhaphy on 06/21/2019. Postoperatively, she has done well. Vital signs remained stable. She was tolerating regular diet, and postoperative hematocrit was 42.2% on postop day #1. She had a voiding trial, and after the Roy catheter was discontinued on senior sales manager of postop day #1, was emptying her bladder well, and had no other concerns. She was discharged home and has a followup in 4 weeks. She should resume her and continue her maintenance medications for chronic conditions. She has tramadol at home as needed for pain. She has a followup in 4 weeks.. Job ID: [id number]
== END 2019-06-22 12:12 | disposition home or self-care (01) | DRG 748 ==
LOC: EDSTATUS 06-21 08:00 → SURG A 06-21 09:31 → 3SW 06-21 16:18
PROVIDERS: ADMIT Obstetrics & Gynecology; ATTEND Obstetrics & Gynecology
PROC: 0ULG7ZZ Occlusion of Vagina, Via Natural or Artificial Opening (ICD-10-PCS; principal; 2019-06-21)
PROC: 0WQNXZZ Repair Female Perineum, External Approach (ICD-10-PCS; 2019-06-21)
DX: N99.3 Prolapse of vaginal vault after hysterectomy (principal); M19.90 Unspecified osteoarthritis, unspecified site; K21.9 Gastro-esophageal reflux disease without esophagitis; M85.80 Other specified disorders of bone density and structure, unspecified site; J44.9 Chronic obstructive pulmonary disease, unspecified; Z88.0 Allergy status to penicillin; Z88.8 Allergy status to other drugs, medicaments and biological substances; Z11.59 Encounter for screening for other viral diseases; Z01.818 Encounter for other preprocedural examination
CPT/HCPCS: 36415; 80048; 85027; 86850; 86900; 86901; 87635; 93005; J1100; J1956; J2001; J2270; J2405; J2704; J3010; U0003

== ENCOUNTER 2019-10-30 14:20 | Inpatient (IN) | payer MEDICARE, MEDICAID, OTHER ==
[2019-10-30 14:53] LABS: #Basophils 0.1 thou/uL (0.0-0.2); #Eosinphils 0.5 thou/uL (0.0-0.7); #Monocytes 0.6 thou/uL (0.11-0.59); #Neutrophils 4.8 thou/uL (1.40-6.50); %Basophils 0.8 % (0.0-1.0); %Eosinophils 6.3 % (0.0-10.0); %Lymphocytes 25.5 % (21.0-51.0); %Monocytes 7.1 % (0.0-10.0); %Neutrophils 60.4 % (42.0-75.0); Hemoglobin 14.4 g/dL (12.0-16.0); Mean Corpuscular HGB CONC 32.2 g/dL (32.0-36.0); Mean Corpuscular Hemoglobin 30.3 pg (27.0-31.0); Mean Corpuscular Volume 94.2 fL (78.0-98.0); Mean Platelet Volume 8.2 fL (7.4-10.4); Platelet Count 266 thou/uL (130-400); RBC Distribution Width 11.9 % (11.5-14.5); Red Blood Cell (RBC) Count 4.74 mill/uL (4.20-5.40)
--- NOTE | 2019-10-30 15:01 | RAD ---
Portable frontal chest radiograph: 10/30/2019 COMPARISON: 01/26/2019 HISTORY: Syncope, chest pain FINDINGS: Stable dual lead transvenous pacing device. Stable prominence of the cardiac silhouette. No pneumothorax or pleural fluid. No lobar consolidation or alveolar edema. Mild pulmonary vascular prominence. IMPRESSION: No focal consolidation or alveolar edema.
[2019-10-30 15:15] LABS: ALT (SGPT) 28 U/L (8-55); AST (SGOT) 23 U/L (5-34); Albumin 4.1 g/dL (3.4-4.8); Alkaline Phosphatase 185 U/L (40-110); Anion Gap 14 mmol/L (10-20); BUN (Urea Nitrogen) 11 mg/dL (9.8-20.1); Bilirubin, Total 0.3 mg/dL (0.2-1.2); Calc. Creatinine Clearance 0 mL/min (70-130); Calcium 9.4 mg/dL (7.8-10.44); Carbon Dioxide 28 mmol/L (23-31); Chloride 102 mmol/L (98-107); Estimated GFR-MDRD 68; Globulin 2.8 g/dL (2.4-3.5); Glucose 100 mg/dL (83-110); Potassium 3.7 mmol/L (3.5-5.1); Protein, Total 6.9 g/dL (6.0-8.3); Sodium 140 mmol/L (136-145)
[2019-10-30 15:40] LABS: CKMB 0.9 ng/mL (0-6.6)
[2019-10-30] MEDS ORDERED: Aspirin Chewable 81 MG TAB ONE (15:45)
[2019-10-30] MEDS ORDERED: Lidocaine Viscous Sol 2% 15 ml UD Cup ONE (15:45)
[2019-10-30] MEDS ORDERED: Mag-Al 1200 mg/1200 mg/30 ML UDCUP ONE (15:45)
[2019-10-30] MEDS ORDERED: Acetaminophen 325 MG TAB PO PRN (15:51)
[2019-10-30] MEDS ORDERED: Senokot S 8.6-50 MG TAB PO PRN (15:51)
[2019-10-30 16:07] LABS: Bilirubin Negative (Negative); Blood, Urine Negative (Negative); Clarity Clear (Clear); Glucose, Urine (Dipstick) Normal (Negative); Ketone, Urine Negative (Negative); Leukocyte 75 Leu/uL (Negative); Nitrite 1+ (Negative); Protein, Urine (Dipstick) Negative (Neg-Trace); RBC/HPF 0-3 HPF (0-3); Specific Gravity, Urine 1.003 (1.002-1.036); Squamous Epithelial None Seen HPF (0-3); Urobilinogen Normal mg/dL (Less than 2); pH, Urine 6.5 (5.0-9.0)
[2019-10-30 16:16] LABS: Bacteria/HPF 4+ HPF (None Seen)
[2019-10-30] MEDS ORDERED: traMADol HCl 50 MG TAB PO PRN (16:25)
[2019-10-30] MEDS ORDERED: Nitroglycerin 0.4 MG TAB (25 Tab Bottle) SL PRN (16:25)
[2019-10-30 16:38] LABS: Hemoglobin A1c 5.4 % (4.0-6.0)
--- NOTE | 2019-10-30 17:06 | HP ---
CHIEF COMPLAINT: Chest pain. HISTORY OF PRESENT ILLNESS: This is a 79-year-old female with a history of pacemaker placement roughly 3 years ago, presenting with chest pain. She had some emotional stress this morning. Clutched her left side chest with chest discomfort and followed by syncopal episode. When she woke up, she is quite aware of her surroundings. No prodromal symptoms. It was triggered by the stress. When she was on EMS, she also experienced another episode of chest pain. EKG showed intermittently paced rhythm. Troponin was 0.029. Chest x-ray negative. She got aspirin. Currently, she is chest pain free. She will be brought in for acute coronary syndrome ruled out and risk stratification. She did have a cardiac cath in 2018. At that time, she had some intermittent bradycardia and symptomatic. 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 She has no recent stent placement or CABG. REVIEW OF SYSTEMS: 13-point review of systems reviewed with the patient in detail and the daughter who is at bedside. They are negative including no recent fever, night sweats or chills. No productive cough. No nausea, vomiting, abdominal pain, constipation, diarrhea, hematuria, dysuria or hematochezia. No headache or blurriness. ALLERGIES: SHE IS ALLERGIC TO TYLENOL AND CODEINE. MEDICAL HISTORY: She has vertigo, osteoarthritis, hemorrhagic cystitis, GERD, osteopenia, and COPD. SURGICAL HISTORY: Complete hysterectomy and bladder suspension in the past. MEDICATIONS: 1. Folic acid 1 mg daily. 2. Vitamin D3 800 units daily. 3. Calcium 500 mg daily. 4. Fish oil 1000 mg daily. SOCIAL HISTORY: She lives with her daughter. She does not smoke or drink alcohol. FAMILY HISTORY: Significant for breast cancer and cardiovascular disease. PHYSICAL EXAMINATION: GENERAL: She is afebrile, normotensive. She is saturating 95% in room air. She appears nontoxic. Daughter at bedside. CARDIOVASCULAR: Regular rate and rhythm without murmurs, rubs or gallops. LUNGS: Clear to auscultation bilaterally without wheezing, rales or rhonchi. ABDOMEN: Soft, nontender, and nondistended. Good bowel sounds. EXTREMITIES: Without any pitting edema. LABORATORY DATA: Her initial troponin is 0.029, alkaline phosphatase 185. Rest of the CMP panel in the normal range. CBC also normal range. EKG, paced rhythm. Chest x-ray, negative for infiltrate. EKG reviewed by me and it is a paced rhythm. IMPRESSION AND PLAN: 1. This is a 79-year-old female with a history of AV block type 2, [employer] pacer placement in 2018, presenting with emotionally triggered chest pain. 2. Syncope, possibly vasovagal. 3. Due to her indeterminate troponin, she will be ruled out for acute coronary syndrome. We will also get risk stratification with nuclear med stress test. 4. 2D echo to assess the EF, wall motion and valvular abnormalities to rule out if any etiology for her syncope with structural abnormalities of the heart. I believe her symptoms and presentation is mostly triggered by emotional issues that caused this morning chest pain and syncopal symptoms based on the history. However, due to the age and risk factors and emotional stress also an important contributory for cardiovascular compromise, she will be ruled out and risk stratified. Follow the TSH, A1c, lipid panel as well. She is not on any beta-myron or statin at this point. I will start her on aspirin, and if troponin second set elevated, probably she needs heparin protocol for acute coronary syndrome. We will follow. Job ID: [id number] [facility] CENTERDionna
[2019-10-30 19:24] LABS: Troponin I 0.064 ng/mL (< 0.028)
[2019-10-31 00:30] LABS: CKMB 1.1 ng/mL (0-6.6)
[2019-10-31] MEDS: Cholecalciferol (Vitamin D3) 400 UNITS TAB PO SCH (11:40)
[2019-10-31] MEDS: Calcium Carbonate 500 MG TAB PO SCH (11:40)
[2019-10-31] MEDS: Folic Acid 1 MG TAB PO SCH (11:40)
[2019-10-31 12:01] LABS: SARS-CoV-2 MS2 Positive; SARS-CoV-2 N Gene Negative; SARS-CoV-2 S Gene Negative; SARS-CoV-2 by NAA Not Detected (NotDetected); SARS-CoV-2 orf1ab Negative
--- NOTE | 2019-10-31 12:18 | NM ---
CARDIAC SPECT: CLINICAL HISTORY: 79-year-old female with chest pain, COPD, atrial fibrillation. TECHNIQUE: A myocardial perfusion scan was performed using the single isotope one day protocol with technetium-9 9m sestamibi. 11 mCi were injected intravenously for the rest exam followed by 33 mCi for the stress exam. Pharmacologic stress with Lexiscan was monitored and interpreted by Dr. Mac. FINDINGS: Fairly homogeneous tracer distribution is seen in the myocardial segments on stress and rest images w ithout fixed or reversible defects. GATED SPECT LVEF: 57%. WALL MOTION EXAM: Normal. IMPRESSION: Normal myocardial perfusion scan. POS: AH
--- NOTE | 2019-10-31 12:50 | PDOC.HOSPP ---
- Subjective Encounter Date: 10/31/19 Encounter Time: :20 Subjective: She came back from the stress test. She is doing well denies any chest pain. She lives with her son. Echo is pending. - Objective Vital Signs & Weight: Vital Signs (12 hours) Temp Pulse Resp BP Pulse Ox 10/31/19 11:44 97.4 F L 73 18 130/58 L 98 10/31/19 07:25 98 F 65 14 127/60 95 10/31/19 04:22 97.9 F 64 23 H 113/56 L 95 Weight Weight 200 lb 6.4 oz I&O: 10/30/19 10/31/19 11/01/19 06:59 06:59 06:59 Intake Total 430 Balance 430 Result Diagrams: 10/30/19 14:41 10/30/19 14:41 Hospitalist ROS - Medication Medications: Active Medications Generic Name Dose Route Start Last Admin Trade Name Freq PRN Reason Stop Dose Admin Calcium Carbonate 500 mg 10/31/19 09:00 10/31/19 11:40 Calcium Carbonate 500 Mg Tab PO 500 mg DAILY FLORECITA Administration Cholecalciferol 800 units 10/31/19 09:00 10/31/19 11:40 Cholecalciferol (Vitamin D3) 400 Units Tab PO 800 units DAILY FLORECITA Administration Folic Acid 1 mg 10/31/19 09:00 10/31/19 11:40 Folic Acid 1 Mg Tab PO 1 mg DAILY FLORECITA Administration Tramadol HCl 50 mg 10/30/19 16:25 10/30/19 19:06 Tramadol Hcl 50 Mg Tab PO 50 mg Q6H PRN Administration Pain - Exam General Appearance: NAD, awake alert Eye: PERRL ENT: normocephalic atraumatic Neck: supple Heart: RRR Respiratory: CTAB, normal chest expansion Gastrointestinal: soft, normal bowel sounds Neurological: no weakness Psychiatric: A&O x 3 Hosp A/P - Plan Probable noncardiac chest pain Syncope --Stress test completed waiting for the report. -Echo has to be completed as patient presented with syncope and I cannot discharge without reviewing the echo report.
[2019-10-31] MEDS ORDERED: Cyclobenzaprine 10 MG TAB PO PRN (13:59)
[2019-10-31] MEDS ORDERED: tiZANidine HCl 4 MG TAB PO PRN (14:03)
[2019-10-31] MEDS ORDERED: Regadenoson 0.4 MG/5 ML SYRINGE ONE (15:10)
[2019-11-01] MEDS: Cholecalciferol (Vitamin D3) 400 UNITS TAB PO SCH (08:07)
[2019-11-01] MEDS: Folic Acid 1 MG TAB PO SCH (08:07)
[2019-11-01] MEDS: Calcium Carbonate 500 MG TAB PO SCH (08:07)
[2019-11-01] MEDS: Cyanocobalamin (Vitamin B-12) 1,000 MCG TAB PO SCH (08:08)
[2019-11-02] MEDS: Folic Acid 1 MG TAB PO SCH (08:47)
[2019-11-02] MEDS: Calcium Carbonate 500 MG TAB PO SCH (08:47)
[2019-11-02] MEDS: Cyanocobalamin (Vitamin B-12) 1,000 MCG TAB PO SCH (08:47)
[2019-11-02] MEDS: Cholecalciferol (Vitamin D3) 400 UNITS TAB PO SCH (08:47)
--- NOTE | 2019-11-02 13:04 | PDOC.HOSPP ---
- Subjective Encounter Date: 11/01/19 Encounter Time: 10:00 Subjective: Doing well. Her daughter at bedside. The echo has been completed. She has no acute complaints. - Objective Vital Signs & Weight: Vital Signs (12 hours) Temp Pulse Resp BP BP BP Pulse Ox 11/02/19 10:25 72 18 132/82 98 11/02/19 07:35 97.9 F 57 L 16 132/60 97 11/02/19 04:18 97.6 F 68 16 120/59 L 95 Weight Admit Weight 203 lb Weight 200 lb 6.4 oz I&O: 11/01/19 11/02/19 11/03/19 06:59 06:59 06:59 Intake Total 900 840 Output Total 1500 200 Balance -600 640 Result Diagrams: 10/30/19 14:41 10/30/19 14:41 Hospitalist ROS - Medication Medications: Active Medications Generic Name Dose Route Start Last Admin Trade Name Freq PRN Reason Stop Dose Admin Calcium Carbonate 500 mg 10/31/19 09:00 11/02/19 08:47 Calcium Carbonate 500 Mg Tab PO 500 mg DAILY FLORECITA Administration Cholecalciferol 800 units 10/31/19 09:00 11/02/19 08:47 Cholecalciferol (Vitamin D3) 400 Units Tab PO 800 units DAILY FLORECITA Administration Cyanocobalamin 1,000 mcg 11/01/19 09:00 11/02/19 08:47 Cyanocobalamin (Vitamin B-12) 1,000 Mcg Tab PO 1,000 mcg DAILY FLORECITA Administration Cyclobenzaprine HCl 10 mg 10/31/19 13:59 11/02/19 10:21 Cyclobenzaprine 10 Mg Tab PO 10 mg TIDPRN PRN Administration Muscle Spasm Folic Acid 1 mg 10/31/19 09:00 11/02/19 08:47 Folic Acid 1 Mg Tab PO 1 mg DAILY FLORECITA Administration Pantoprazole Sodium 40 mg 11/01/19 09:00 11/02/19 08:47 Pantoprazole 40 Mg Tab PO 40 mg DAILY FLORECITA Administration Tramadol HCl 50 mg 10/30/19 16:25 10/30/19 19:06 Tramadol Hcl 50 Mg Tab PO 50 mg Q6H PRN Administration Pain - Exam General Appearance: NAD, awake alert Eye: PERRL ENT: normocephalic atraumatic Neck: supple Heart: RRR Respiratory: CTAB, normal chest expansion Gastrointestinal: soft, normal bowel sounds Neurological: no focal deficits Psychiatric: A&O x 3 Hosp A/P - Plan Probable noncardiac chest pain Syncope --Stress test completed waiting for the report. -Echo has to be completed as patient presented with syncope and I cannot discharge without reviewing the echo report. Pending echo report Noted this progress note dictated next today as I was waiting to discharge her and do the discharge summary yesterday somehow the echo was not completed hence there is a delay.
--- NOTE | 2019-11-02 15:01 | PDOC.HOSPP ---
- Subjective Encounter Date: 11/02/19 Encounter Time: 09:40 Subjective: Patient's echo reviewed she has abnormality. Cardiology consulted however when I visited her she is so stubborn wants to go home. Pacer interrogated looks she has 900 PVCs per hour. She has a probable nonischemic cardiomyopathy. - Objective Vital Signs & Weight: Vital Signs (12 hours) Temp Pulse Resp BP BP BP Pulse Ox 11/02/19 10:25 72 18 132/82 98 11/02/19 07:35 97.9 F 57 L 16 132/60 97 11/02/19 04:18 97.6 F 68 16 120/59 L 95 Weight Admit Weight 203 lb Weight 200 lb 6.4 oz I&O: 11/01/19 11/02/19 11/03/19 06:59 06:59 06:59 Intake Total 900 840 Output Total 1500 200 Balance -600 640 Result Diagrams: 10/30/19 14:41 10/30/19 14:41 Hospitalist ROS - Medication Medications: Active Medications Generic Name Dose Route Start Last Admin Trade Name Freq PRN Reason Stop Dose Admin Calcium Carbonate 500 mg 10/31/19 09:00 11/02/19 08:47 Calcium Carbonate 500 Mg Tab PO 500 mg DAILY FLORECITA Administration Cholecalciferol 800 units 10/31/19 09:00 11/02/19 08:47 Cholecalciferol (Vitamin D3) 400 Units Tab PO 800 units DAILY FLORECITA Administration Cyanocobalamin 1,000 mcg 11/01/19 09:00 11/02/19 08:47 Cyanocobalamin (Vitamin B-12) 1,000 Mcg Tab PO 1,000 mcg DAILY FLORECITA Administration Cyclobenzaprine HCl 10 mg 10/31/19 13:59 11/02/19 10:21 Cyclobenzaprine 10 Mg Tab PO 10 mg TIDPRN PRN Administration Muscle Spasm Folic Acid 1 mg 10/31/19 09:00 11/02/19 08:47 Folic Acid 1 Mg Tab PO 1 mg DAILY FLORECITA Administration Pantoprazole Sodium 40 mg 11/01/19 09:00 11/02/19 08:47 Pantoprazole 40 Mg Tab PO 40 mg DAILY FLORECITA Administration Tramadol HCl 50 mg 10/30/19 16:25 10/30/19 19:06 Tramadol Hcl 50 Mg Tab PO 50 mg Q6H PRN Administration Pain - Exam General Appearance: NAD, awake alert Eye: PERRL ENT: normocephalic atraumatic Neck: supple Heart: RRR Respiratory: CTAB Gastrointestinal: soft, normal bowel sounds Neurological: no focal deficits Psychiatric: A&O x 3 Hosp A/P - Plan Probable noncardiac chest pain Syncope --Stress test completed waiting for the report. -Echo has to be completed as patient presented with syncope and I cannot discharge without reviewing the echo report. Pending echo report Noted this progress note dictated next today as I was waiting to discharge her and do the discharge summary yesterday somehow the echo was not completed hence there is a delay. atient's echo reviewed she has abnormality. Cardiology consulted however when I visited her she is so stubborn wants to go home. Pacer interrogated looks she has 900 PVCs per hour. She has a probable nonischemic cardiomyopathy. I have dictated the discharge summary in detail because the patient wants to go home. She was not listening. However later in the day she changed her mind. Dr. Hale started her on the medication. Can make an addendum to my discharge summary upon discharge.
[2019-11-02] MEDS: Carvedilol 3.125 MG TAB PO SCH (17:18)
--- NOTE | 2019-11-03 05:59 | CON ---
DATE OF CONSULTATION: HISTORY OF PRESENT ILLNESS: The patient is a 79-year-old woman with history of a pacemaker placement, who presented after having a syncopal episode and with apparent chest discomfort. The patient was seen initially in 2018 with severe bradycardia. She subsequently had placement of an electronic pacemaker. The patient at that time underwent an echocardiogram, which revealed her to have normal left ventricular systolic function. She was seen again and underwent a followup echocardiogram in January of 2019, which revealed a mild decrease in left ventricular systolic function. The patient has not come for a cardiac followup. She was apparently in her usual state of health when a few days ago she was in an argument and apparently lost consciousness. The patient does not recall having any chest discomfort. She did not lose control of her bladder or bowel. PAST MEDICAL HISTORY: 1. History of bradycardia. 2. COPD. 3. GE reflux. 4. Cystitis. PAST SURGICAL HISTORY: Hysterectomy and bladder surgery. SOCIAL HISTORY: Nonsmoker. ALLERGIES: NONSTEROIDAL, TYLENOL, PENICILLIN, AND CODEINE. REVIEW OF SYSTEMS: Ten-point system otherwise unremarkable. No history of easy bruising or bleeding. PHYSICAL EXAMINATION: GENERAL: Well-developed woman, in no acute distress. VITAL SIGNS: Blood pressure 132/82. NECK: Showed no jugular venous distention. LUNGS: Clear to auscultation. HEART: Regular rate and rhythm. Normal S1 and S2. ABDOMEN: Nondistended. EXTREMITIES: Showed no edema. VASCULAR: Radial pulses are 2+. LABORATORY RESULTS: Sodium 140, potassium 3.7, chloride 102, bicarbonate 28, BUN 11, and creatinine 0.82, and glucose 68. Troponin is 0.029. White blood cell count 8.0, hemoglobin 14.4, hematocrit 44.6, and platelets are 266. Echocardiogram moderate decreased left ventricular ejection fraction of 30% to 35%, moderate mitral regurgitation, moderate aortic regurgitation, and moderate tricuspid regurgitation. Cardiolite stress test revealed normal left ventricular ejection fraction 57% with no evidence of ischemia. Telemetry monitoring revealed normal sinus rhythm with frequent short runs of PAT. IMPRESSION: 1. Syncope. 2. History of pacemaker placement. 3. Cardiomyopathy. 4. Chronic obstructive pulmonary disease. This patient had a pacemaker placed. From a cardiac standpoint, her echocardiogram revealed evidence of left ventricular dysfunction. She has evidence of PVCs and atrial tachycardia. We would recommend the patient be started on a low-dose beta-myron. With the lower ejection fraction, the patient should either be on ANA inhibitor therapy or Entresto. PLAN: 1. Start low-dose Coreg. 2. Start low-dose Entresto. We will follow this patient with you through her hospitalization. Job ID: [id number] MTDD
[2019-11-03] MEDS: Folic Acid 1 MG TAB PO SCH (08:31)
[2019-11-03] MEDS: Calcium Carbonate 500 MG TAB PO SCH (08:31)
[2019-11-03] MEDS: Cyanocobalamin (Vitamin B-12) 1,000 MCG TAB PO SCH (08:31)
[2019-11-03] MEDS: Cholecalciferol (Vitamin D3) 400 UNITS TAB PO SCH (08:39)
[2019-11-03] MEDS: Carvedilol 3.125 MG TAB PO SCH (08:41)
[2019-11-03] MEDS ORDERED: Carvedilol 6.25 MG TAB PO SCH ×2 (08:45→17:00)
--- NOTE | 2019-11-03 19:31 | PDOC.HOSPP ---
- Subjective Encounter Date: 11/03/19 Encounter Time: 14:00 Subjective: The patient states she is doing well. She has had no further palpitations, no dizziness, no lightheadedness. Patient states that she was told she has to stay in the hospital until Tuesday by cardiology - Objective Vital Signs & Weight: Vital Signs (12 hours) Temp Pulse Resp BP BP Pulse Ox 11/03/19 15:14 98.4 F 67 20 103/61 96 11/03/19 12:26 97.7 F 65 20 114/56 L 96 Weight Admit Weight 203 lb Weight 200 lb 6.4 oz I&O: 11/02/19 11/03/19 11/04/19 06:59 06:59 06:59 Intake Total 840 240 960 Output Total 200 Balance 640 240 960 Result Diagrams: 10/30/19 14:41 10/30/19 14:41 Hospitalist ROS - Review of Systems Constitutional: denies: fever, chills - Medication Medications: Active Medications Generic Name Dose Route Start Last Admin Trade Name Freq PRN Reason Stop Dose Admin Calcium Carbonate 500 mg 10/31/19 09:00 11/03/19 08:31 Calcium Carbonate 500 Mg Tab PO 500 mg DAILY FLORECITA Administration Carvedilol 6.25 mg 11/03/19 17:00 11/03/19 17:36 Carvedilol 6.25 Mg Tab PO 6.25 mg BID-WM FLORECITA Administration Cholecalciferol 800 units 10/31/19 09:00 11/03/19 08:39 Cholecalciferol (Vitamin D3) 400 Units Tab PO 800 units DAILY FLORECITA Administration Cyanocobalamin 1,000 mcg 11/01/19 09:00 11/03/19 08:31 Cyanocobalamin (Vitamin B-12) 1,000 Mcg Tab PO 1,000 mcg DAILY FLORECITA Administration Cyclobenzaprine HCl 10 mg 10/31/19 13:59 11/02/19 10:21 Cyclobenzaprine 10 Mg Tab PO 10 mg TIDPRN PRN Administration Muscle Spasm Folic Acid 1 mg 10/31/19 09:00 11/03/19 08:31 Folic Acid 1 Mg Tab PO 1 mg DAILY FLORECITA Administration Pantoprazole Sodium 40 mg 11/01/19 09:00 11/03/19 08:31 Pantoprazole 40 Mg Tab PO 40 mg DAILY FLORECITA Administration Tramadol HCl 50 mg 10/30/19 16:25 10/30/19 19:06 Tramadol Hcl 50 Mg Tab PO 50 mg Q6H PRN Administration Pain - Exam General Appearance: NAD, awake alert Eye: PERRL, anicteric sclera ENT: normocephalic atraumatic, no oropharyngeal lesions Neck: no JVD Heart: RRR, no murmur, no gallops, no rubs Respiratory: CTAB, no wheezes, no rales, no ronchi Gastrointestinal: soft, non-tender, non-distended, normal bowel sounds Extremities: no cyanosis, no clubbing, no edema Skin: normal turgor, no lesions, no rashes Neurological: cranial nerve grossly intact, normal sensation to touch, no focal deficits, no new deficit Musculoskeletal: normal tone, normal strength, no muscle wasting Psychiatric: normal affect, normal behavior, A&O x 3 Hosp A/P - Plan ECHO: EF 30-35%, moderate MR, AR, TR This is a 79 year old female who presented with syncopal episode #Syncope #History of pacemaker - had some atrial tachycardia, started on coreg today, will monitor - ECHO shows EF 30-35% History of systolic heart failure - started on coreg today and entresto - cardiology following - not on diuretic due to low BP Elevated troponin - peaked and downtrending GERD - continue PPI
[2019-11-03] MEDS: Carvedilol 6.25 MG TAB PO SCH (21:35)
[2019-11-04 04:53] LABS: Anion Gap 14 mmol/L (10-20); BUN (Urea Nitrogen) 18 mg/dL (9.8-20.1); Calc. Creatinine Clearance 85 mL/min (70-130); Calcium 9.1 mg/dL (7.8-10.44); Carbon Dioxide 21 mmol/L (23-31); Chloride 106 mmol/L (98-107); Estimated GFR-MDRD 72; Glucose 104 mg/dL (83-110); Potassium 3.8 mmol/L (3.5-5.1); Sodium 137 mmol/L (136-145)
[2019-11-04] MEDS: Cyanocobalamin (Vitamin B-12) 1,000 MCG TAB PO SCH (08:14)
[2019-11-04] MEDS: Folic Acid 1 MG TAB PO SCH (08:14)
[2019-11-04] MEDS: Carvedilol 6.25 MG TAB PO SCH ×3 (08:14→21:33)
[2019-11-04] MEDS: Calcium Carbonate 500 MG TAB PO SCH (08:14)
[2019-11-04] MEDS: Cholecalciferol (Vitamin D3) 400 UNITS TAB PO SCH (08:18)
--- NOTE | 2019-11-04 14:36 | PDOC.HOSPP ---
- Subjective Encounter Date: 11/04/19 Encounter Time: 12:00 Subjective: The patient is doing well. Yesterday she had an episode of MAT versus sinus tach with heart rate in the 120's lasting few seconds. She states she does remember feeling off and possibly having some palpitations, but doesn't remember. There is plans for life-vest to be arranged - Objective Vital Signs & Weight: Vital Signs (12 hours) Temp Pulse Resp BP BP Pulse Ox 11/04/19 11:45 97.8 F 76 14 102/60 97 11/04/19 08:06 98.5 F 64 19 112/59 L 97 11/04/19 04:21 97.5 F L 64 18 96/57 L 96 Weight Admit Weight 203 lb Weight 196 lb I&O: 11/03/19 11/04/19 11/05/19 06:59 06:59 06:59 Intake Total 240 1160 Output Total 400 Balance 240 760 Result Diagrams: 10/30/19 14:41 11/04/19 04:04 Hospitalist ROS - Review of Systems Constitutional: denies: fever, chills - Medication Medications: Active Medications Generic Name Dose Route Start Last Admin Trade Name Freq PRN Reason Stop Dose Admin Calcium Carbonate 500 mg 10/31/19 09:00 11/04/19 08:14 Calcium Carbonate 500 Mg Tab PO 500 mg DAILY FLORECITA Administration Carvedilol 6.25 mg 11/03/19 21:00 11/04/19 08:14 Carvedilol 6.25 Mg Tab PO 6.25 mg TID FLORECITA Administration Cholecalciferol 800 units 10/31/19 09:00 11/04/19 08:18 Cholecalciferol (Vitamin D3) 400 Units Tab PO 800 units DAILY FLORECITA Administration Cyanocobalamin 1,000 mcg 11/01/19 09:00 11/04/19 08:14 Cyanocobalamin (Vitamin B-12) 1,000 Mcg Tab PO 1,000 mcg DAILY FLORECITA Administration Cyclobenzaprine HCl 10 mg 10/31/19 13:59 11/02/19 10:21 Cyclobenzaprine 10 Mg Tab PO 10 mg TIDPRN PRN Administration Muscle Spasm Folic Acid 1 mg 10/31/19 09:00 11/04/19 08:14 Folic Acid 1 Mg Tab PO 1 mg DAILY FLORECITA Administration Pantoprazole Sodium 40 mg 11/01/19 09:00 11/04/19 08:14 Pantoprazole 40 Mg Tab PO 40 mg DAILY FLORECITA Administration Sacubitril/Valsartan 1 tab 11/03/19 21:00 11/04/19 08:14 Sacubitril 24mg/Valsartan 26mg Tab PO 1 tab BID FLORECITA Administration Tramadol HCl 50 mg 10/30/19 16:25 10/30/19 19:06 Tramadol Hcl 50 Mg Tab PO 50 mg Q6H PRN Administration Pain - Exam General Appearance: NAD, awake alert Eye: PERRL, anicteric sclera ENT: normocephalic atraumatic, no oropharyngeal lesions Neck: no JVD Heart: RRR, no murmur, no gallops, no rubs Respiratory: CTAB, no wheezes, no rales, no ronchi Gastrointestinal: soft, non-tender, non-distended, normal bowel sounds Extremities: no cyanosis, no clubbing, no edema Skin: normal turgor, no lesions, no rashes Hosp A/P - Plan ECHO: EF 30-35%, moderate MR, AR, TR This is a 79 year old female who presented with syncopal episode #Syncope - possibly from atrial tachycardia #History of pacemaker - had some atrial tachycardia on admission with some MAT overnight. Coreg increased to 6.25 mg tid - will monitor overnight #History of systolic heart failure #Moderate mitral regurgitation/tricuspid regurgitation/aortic regurigtation - started on coreg and entresto for EF 30-35% - plan on getting life-vest arranged Elevated troponin - peaked and downtrending, no chest pain. ECHO showed no wall motion abnormality GERD - continue PPI Dispo: possibly d/c tomorrow after life-vest
[2019-11-05] MEDS: Cyanocobalamin (Vitamin B-12) 1,000 MCG TAB PO SCH (09:18)
[2019-11-05] MEDS: Calcium Carbonate 500 MG TAB PO SCH (09:18)
[2019-11-05] MEDS: Folic Acid 1 MG TAB PO SCH (09:19)
[2019-11-05] MEDS: Carvedilol 6.25 MG TAB PO SCH ×2 (09:19→21:09)
--- NOTE | 2019-11-05 09:20 | CON ---
DATE OF CONSULTATION: 11/05/2019 SUBJECTIVE: Ms. Tavarez is doing well. No current complaints. She had a syncopal episode noted prior to admission. Pacemaker has not been interrogated. Her LVEF was estimated at 30 to 35% on recent echo. Her noninvasive stress study did not suggest ischemia with a normal LVEF. OBJECTIVE: VITAL SIGNS: 91/54, pulse 61, temperature 97.8. LUNGS: Clear to auscultation. HEART: Regular rate and rhythm. ABDOMEN: Soft, nontender, nondistended. EXTREMITIES: No edema. IMPRESSION: 1. Syncope. 2. Non-Ischemic cardiomyopathy 3. Status post pacemaker. RECOMMENDATIONS: 1. We will interrogate pacemaker. 2. Decrease Coreg to 3.125 mg one p.o. b.i.d. Recent stress test negative for sicehmia. Feels low EF likely related to pacer. I did discuss proceeding with coronary angiography versus medical therapy. I have discussed risks and benefits above. She has opted to proceed with more conservative approach. She is not interested in coronary angiography. We will recommend a LifeVest, which has been ordered. Job ID: [id number] MTDD
[2019-11-05 12:52] VITALS: BMI 30.7
[2019-11-05] MEDS: Cholecalciferol (Vitamin D3) 400 UNITS TAB PO SCH (15:39)
--- NOTE | 2019-11-05 18:23 | PDOC.HOSPP ---
- Subjective Encounter Date: 11/05/19 Encounter Time: 11:30 Subjective: Patient has no complaints, no chest pain, palpitations, SOB. Still awaiting on life-vest - Objective Vital Signs & Weight: Vital Signs (12 hours) Temp Pulse Resp BP BP BP Pulse Ox 11/05/19 15:15 97.6 F 62 16 104/58 L 97 11/05/19 11:46 97.4 F L 68 15 106/59 L 97 11/05/19 09:19 105/68 Weight Admit Weight 200 lb 6.4 oz Weight 196 lb 1.6 oz I&O: 11/04/19 11/05/19 11/06/19 06:59 06:59 06:59 Intake Total 1160 910 Output Total 400 1950 Balance 760 -1040 Result Diagrams: 10/30/19 14:41 11/04/19 04:04 Hospitalist ROS - Review of Systems Constitutional: denies: fever, chills - Medication Medications: Active Medications Generic Name Dose Route Start Last Admin Trade Name Freq PRN Reason Stop Dose Admin Calcium Carbonate 500 mg 10/31/19 09:00 11/05/19 09:18 Calcium Carbonate 500 Mg Tab PO 500 mg DAILY FLORECITA Administration Carvedilol 3.125 mg 11/05/19 09:00 11/05/19 09:19 Carvedilol 6.25 Mg Tab PO 3.125 mg BID FLORECITA Administration Cholecalciferol 800 units 10/31/19 09:00 11/05/19 15:39 Cholecalciferol (Vitamin D3) 400 Units Tab PO Not Given DAILY FLORECITA Cyanocobalamin 1,000 mcg 11/01/19 09:00 11/05/19 09:18 Cyanocobalamin (Vitamin B-12) 1,000 Mcg Tab PO 1,000 mcg DAILY FLORECITA Administration Cyclobenzaprine HCl 10 mg 10/31/19 13:59 11/02/19 10:21 Cyclobenzaprine 10 Mg Tab PO 10 mg TIDPRN PRN Administration Muscle Spasm Folic Acid 1 mg 10/31/19 09:00 11/05/19 09:19 Folic Acid 1 Mg Tab PO 1 mg DAILY FLORECITA Administration Pantoprazole Sodium 40 mg 11/01/19 09:00 11/05/19 09:19 Pantoprazole 40 Mg Tab PO 40 mg DAILY FLORECITA Administration Sacubitril/Valsartan 1 tab 11/03/19 21:00 11/05/19 09:19 Sacubitril 24mg/Valsartan 26mg Tab PO 1 tab BID FLORECITA Administration Tramadol HCl 50 mg 10/30/19 16:25 10/30/19 19:06 Tramadol Hcl 50 Mg Tab PO 50 mg Q6H PRN Administration Pain - Exam General Appearance: NAD, awake alert Eye: PERRL, anicteric sclera ENT: normocephalic atraumatic, no oropharyngeal lesions Neck: no JVD Heart: RRR, no murmur, no gallops, no rubs Respiratory: CTAB, no wheezes, no rales, no ronchi Gastrointestinal: soft, non-tender, non-distended, normal bowel sounds Extremities: no cyanosis, no clubbing, no edema Skin: normal turgor, no lesions, no rashes Neurological: cranial nerve grossly intact, normal sensation to touch, no focal deficits, no new deficit Hosp A/P - Plan ECHO: EF 30-35%, moderate MR, AR, TR This is a 79 year old female who presented with syncopal episode #Syncope - possibly from atrial tachycardia #History of pacemaker - had some atrial tachycardia on admission with some MAT11/02. Coreg increased to 6.25 mg tid 11/03 -11/04: coreg decreased back to 3.125 mg bid by cardiology #History of systolic heart failure #Moderate mitral regurgitation/tricuspid regurgitation/aortic regurigtation - started on coreg and entresto for EF 30-35% - life-vest is still pending Elevated troponin - peaked and downtrending, no chest pain. ECHO showed no wall motion abnormality GERD - continue PPI Dispo: awaiting life-vest
[2019-11-05] MEDS ORDERED: Sacubitril 49 MG/Valsartan 51 MG TABLET PO SCH (20:45)
[2019-11-06] MEDS: Calcium Carbonate 500 MG TAB PO SCH (08:41)
[2019-11-06] MEDS: Folic Acid 1 MG TAB PO SCH (08:41)
[2019-11-06] MEDS: Cyanocobalamin (Vitamin B-12) 1,000 MCG TAB PO SCH (08:41)
[2019-11-06] MEDS: Carvedilol 6.25 MG TAB PO SCH (08:42)
[2019-11-06] MEDS: Cholecalciferol (Vitamin D3) 400 UNITS TAB PO SCH (08:49)
[2019-11-06 11:38] VITALS: TEMP 98.3
[2019-11-06 13:00] VITALS: BP 97/58
--- NOTE | 2019-11-06 14:12 | PRG ---
DATE OF SERVICE: 11/06/2019 SUBJECTIVE: Ms. Tavarez is doing well. No current complaints. OBJECTIVE: VITAL SIGNS: Blood pressure 119/64, pulse 62, temperature 98.3. LUNGS: Clear to auscultation. HEART: Regular rate and rhythm. ABDOMEN: Soft, nontender, nondistended. EXTREMITIES: No edema. IMPRESSION: Nonischemic cardiomyopathy. RECOMMENDATIONS: Hold Entresto due to hypotension. Also continue low-dose Coreg. LifeVest order has been requested. Once LifeVest received, it would be okay from my standpoint to discharge home. The patient will have outpatient followup in the next 1 to 2 weeks. Job ID: [id number]
--- NOTE | 2019-11-06 15:21 | DIS ---
DATE OF ADMISSION: 11/02/2019 DATE OF DISCHARGE: 11/06/2019 DISCHARGE DIAGNOSES: 1. Syncope. 2. Acute coronary syndrome. 3. [id number] myocardial infarction with type 2 demand ischemia, and stress test is negative. 4. History of sick sinus syndrome with pacemaker placement. 5. Probable nonischemic cardiomyopathy as evidenced by echo study. DISCHARGE MEDICATIONS: 1. Coreg 3.125 mg twice a day. 2. Lipitor 20 mg daily. 3. Lisinopril 2.5 mg daily. These are the new medications. She will continue with her previous home medications as such. ALLERGIES: SHE IS ALLERGIC TO ASPIRIN. NOTE: The patient is quite adamant to leave today. Even though, there is concern for incomplete cardiac workup as we consulted Cardiology this morning for her abnormality in the echo showing EF of 30% to 35% and anterior wall hypokinesis. Pacemaker interrogated and it showed 900 PVCs per hour. She would benefit with further cardiology input. However, Dr. Foley was consulted. Before he gets a chance to discuss with her, she does not want to stay anymore. She wants to leave. It has been felt that she is not going to be compliant with the medications. I tried to reach Dr. Nichols, her division service manager, for any input at this point. PHYSICAL EXAMINATION: VITAL SIGNS: Her temperature is 97.9, her pulse is 57 to 72 range. Her blood pressure is ranging from 107 to 132 over 60. With these readings, I am giving her very low dose of lisinopril as well as Coreg as given above. Her LDL level is 126, so she would benefit with statin. CARDIOVASCULAR: Regular rate and rhythm without murmurs, rubs, or gallops. LUNGS: Clear to auscultation bilaterally without wheezing, rales, or rhonchi. ABDOMEN: Soft, nontender, nondistended. Good bowel sounds. EXTREMITIES: Without any pitting edema. HOSPITAL COURSE: This is a 79-year-old female, presented with the syncopal episode as well as chest discomfort. She was monitored overnight in the tele, and she did have abnormal troponin ranging from 0.044 to 0.16. She had undergone nuclear medicine stress test, which showed a normal perfusion scan. However, the echo showed EF of 35%, hypokinetic motion of anterior wall noted in the left ventricle, mildly dilated left atrium as well as moderate mitral regurgitation and aortic regurgitation. She also has a mildly elevated pulmonary artery pressure. Overnight tele showed a paced rhythm. Between this rhythm, she is in sinus. She also has a bundle-branch block. She also had some 11 seconds of paroxysmal atrial tachycardia per telemetry monitoring. I believe her syncopal episode is probably arrhythmogenic. She does have a pacemaker, but it seems that needs to be looked further as the patient had 900 PVCs in 1 hour. Also, she has poor EF as reported by echo report this morning. As the workup was in progress, the patient is very set in wanting to go home today, no matter what. Dr. Foley tried to make an attempt to visit her and try to convince her, but she is not listening to us. In this situation, I have given her a couple of very low-dose medications that she can benefit until she go and see Dr. Nichols. DISCHARGE INSTRUCTIONS: 1. Activity: As tolerated. 2. Diet: Healthy heart diet. 3. Follow up with Dr. Nichols in 1 week. 4. Follow up with primary care physician in 1 week. DISCHARGE TIME: Discharge time took over 35 minutes. Job ID: [id number]
--- NOTE | 2019-11-07 15:57 | DIS ---
DATE OF ADMISSION: 11/02/2019 DATE OF DISCHARGE: 11/06/2019 ADDENDUM: This is a discharge summary addendum to Dr. Cuevas's discharge summary. DISCHARGE DIAGNOSES: 1. Syncope secondary to atrial tachycardia. 2. Chronic systolic heart failure. BRIEF HISTORY OF PRESENT ILLNESS: This is a 79-year-old female with a past medical history of pacemaker placement, who presented to the emergency room with left- sided chest pain followed by syncopal episode. 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 The patient was admitted to the hospital for further workup. HOSPITAL COURSE: Atrial tachycardia versus MAT: The patient was noted to have episode of atrial tachycardia on 11/01. She was started on Coreg. On 11/02, she had an episode of MAT versus sinus tach with heart rate in the 120s. Her Coreg was increased to 6.25 mg t.i.d., but then reduced back to 3.125 mg due to lower blood pressure and bradycardia. She had no further events of tachycardia. ECHO 11/01 showed an EF of 30% to 35%. We tried to arrange a LifeVest while in the hospital. However, the patient did not want to stay for the LifeVest since she waited many days for this. Dr. Nichols advised that the patient can go home and be fitted with a LifeVest. She needs to follow up with Dr. Nichols in 1 week. Chronic pain: The patient reported that she ran out of her meloxicam and wanted a refill on this for pain. She was discharged with meloxicam 7.5 mg p.o. daily. DISCHARGE PHYSICAL EXAMINATION: VITAL SIGNS: Temperature 98.3, heart rate 63, respiratory rate 16, O2 saturation 99% on room air, blood pressure 97/58. GENERAL: The patient is alert, awake, and oriented x3. CVS: Regular rate and rhythm with no murmurs, rubs, or gallops. LUNGS: Clear to auscultation bilaterally. ABDOMEN: Positive bowel sounds, soft, nontender, nondistended. EXTREMITIES: No edema. PERTINENT LABORATORY DATA: CBC 10/29: Normal. BMP 11/03: Normal. Troponin I: Peaked at 0.116. Lipid panel 10/29: LDL is 126, total cholesterol 199. IMAGING: Nuclear stress test, 10/30: Normal. Chest x-ray, 10/29: Normal. Echo, 11/01: EF 30% to 35%. Moderate AR, moderate TR. DISCHARGE MEDICATIONS: 1. Coreg 3.125 mg p.o. b.i.d. 2. Atorvastatin 20 mg p.o. daily. 3. Lisinopril 2.5 mg p.o. daily. 4. Meloxicam 7.5 mg p.o. daily. 5. All other home medications were continued. DISCHARGE INSTRUCTIONS: The patient needs to follow up with Dr. Nichols and her primary care doctor in a week. She will be fitted with a LifeVest at home. She should follow a fluid restriction of 1.8 L of fluid a day. Job ID: [id number] [facility]
== END 2019-11-06 14:55 | disposition home or self-care (01) | DRG 281 ==
LOC: ERS 14:20 → 2SW 16:04 → OBSVTOIN 11-02 10:43 → 2NO 11-02 16:08
PROVIDERS: ADMIT Internal Medicine; ATTEND Internal Medicine
DX: I47.1 Supraventricular tachycardia (principal); I21.A1 Myocardial infarction type 2; I42.8 Other cardiomyopathies; I50.22 Chronic systolic (congestive) heart failure; I49.5 Sick sinus syndrome; M19.90 Unspecified osteoarthritis, unspecified site; K21.9 Gastro-esophageal reflux disease without esophagitis; J44.9 Chronic obstructive pulmonary disease, unspecified; M85.80 Other specified disorders of bone density and structure, unspecified site; I44.1 Atrioventricular block, second degree; R32 Unspecified urinary incontinence; Z20.828 Contact with and (suspected) exposure to other viral communicable diseases; F41.9 Anxiety disorder, unspecified; I44.7 Left bundle-branch block, unspecified; I08.3 Combined rheumatic disorders of mitral, aortic and tricuspid valves; I11.0 Hypertensive heart disease with heart failure; Z95.0 Presence of cardiac pacemaker; Z88.8 Allergy status to other drugs, medicaments and biological substances; Z79.899 Other long term (current) drug therapy; Z90.710 Acquired absence of both cervix and uterus; Z88.0 Allergy status to penicillin
CPT/HCPCS: 36415; 71045; 78452; 80048; 80053; 80061; 81003; 81015; 82553; 83036; 83880; 84443; 84484; 85025; 87635; 93005; 93017; 93306; 93798; A9500; G0378; J2785; U0003

== ENCOUNTER 2020-04-29 09:50 | Inpatient (IN) | payer MEDICARE, MEDICAID ==
[2020-04-29 10:26] LABS: #Eosinphils 0.7 thou/uL (0.0-0.7); #Lymphocytes 1.6 thou/uL (1.20-3.40); #Monocytes 0.6 thou/uL (0.11-0.59); #Neutrophils 4.2 thou/uL (1.40-6.50); %Basophils 0.4 % (0.0-1.0); %Eosinophils 9.2 % (0.0-10.0); %Lymphocytes 22.7 % (21.0-51.0); %Monocytes 8.8 % (0.0-10.0); %Neutrophils 58.9 % (42.0-75.0); Hemoglobin 14.7 g/dL (12.0-16.0); Mean Corpuscular HGB CONC 33.3 g/dL (32.0-36.0); Mean Corpuscular Hemoglobin 31.1 pg (27.0-31.0); Mean Corpuscular Volume 93.2 fL (78.0-98.0); Mean Platelet Volume 7.8 fL (7.4-10.4); Platelet Count 258 thou/uL (130-400); Red Blood Cell (RBC) Count 4.74 mill/uL (4.20-5.40); White Blood Cell (WBC) Count 7.2 thou/uL (4.8-10.8)
[2020-04-29 10:52] LABS: ALT (SGPT) 41 U/L (8-55); AST (SGOT) 26 U/L (5-34); Albumin 3.9 g/dL (3.4-4.8); Alkaline Phosphatase 204 U/L (40-110); Anion Gap 15 mmol/L (10-20); BUN (Urea Nitrogen) 9 mg/dL (9.8-20.1); Bilirubin, Total 0.9 mg/dL (0.2-1.2); Calc. Creatinine Clearance 0 mL/min (70-130); Carbon Dioxide 23 mmol/L (23-31); Chloride 103 mmol/L (98-107); Globulin 3.3 g/dL (2.4-3.5); Glucose 98 mg/dL (83-110); Lipase 24 U/L (8-78); Potassium 4.1 mmol/L (3.5-5.1); Protein, Total 7.2 g/dL (5.8-8.1); Sodium 137 mmol/L (136-145)
[2020-04-29] MEDS ORDERED: Nitroglycerin 0.4 MG TAB (25 Tab Bottle) SL PRN (12:33)
[2020-04-29] MEDS ORDERED: Aspirin 325 MG TAB PO SCH (12:45)
[2020-04-29 13:42] LABS: Troponin I Less than 0.010 ng/mL (< 0.028)
[2020-04-29 16:52] LABS: SARS-CoV-2 PCR by NAA Not Detected (NotDetected)
[2020-04-29 16:56] LABS: Troponin I Less than 0.010 ng/mL (< 0.028)
[2020-04-29] MEDS ORDERED: Ondansetron ODT 4 MG TAB SL PRN (19:45)
[2020-04-29] MEDS ORDERED: Ondansetron PF 4 MG/2 ML Vial IVP PRN (19:45)
[2020-04-29 19:49] VITALS: BMI 30.4
[2020-04-30 06:14] LABS: #Basophils 0.1 thou/uL (0.0-0.2); #Eosinphils 0.6 thou/uL (0.0-0.7); #Lymphocytes 1.8 thou/uL (1.20-3.40); #Monocytes 0.6 thou/uL (0.11-0.59); #Neutrophils 3.4 thou/uL (1.40-6.50); %Basophils 0.9 % (0.0-1.0); %Eosinophils 9.3 % (0.0-10.0); %Lymphocytes 27.6 % (21.0-51.0); %Monocytes 8.8 % (0.0-10.0); %Neutrophils 53.3 % (42.0-75.0); Hemoglobin 13.8 g/dL (12.0-16.0); Mean Corpuscular HGB CONC 33.9 g/dL (32.0-36.0); Mean Corpuscular Hemoglobin 31.4 pg (27.0-31.0); Mean Corpuscular Volume 92.7 fL (78.0-98.0); Platelet Count 235 thou/uL (130-400); RBC Distribution Width 11.9 % (11.5-14.5); Red Blood Cell (RBC) Count 4.39 mill/uL (4.20-5.40); White Blood Cell (WBC) Count 6.3 thou/uL (4.8-10.8)
[2020-04-30 06:33] LABS: Anion Gap 14 mmol/L (10-20); BUN (Urea Nitrogen) 14 mg/dL (9.8-20.1); Calc. Creatinine Clearance 88 mL/min (70-130); Calcium 9.1 mg/dL (7.8-10.44); Carbon Dioxide 24 mmol/L (23-31); Cardiac Risk 2.7 (Less than 4.5); Chloride 104 mmol/L (98-107); Cholesterol 124 mg/dl (< 200 Desired); Glucose 93 mg/dL (83-110); HDL Cholesterol 46 mg/dL (>60 Neg Risk); LDL Cholesterol, Calculated 63 mg/dL; Potassium 3.9 mmol/L (3.5-5.1); Sodium 138 mmol/L (136-145); Triglycerides 74 mg/dL (Less than 150)
[2020-04-30 07:50] LABS: Bacteria/HPF 3+ HPF (None Seen); Bilirubin Negative (Negative); Blood, Urine Trace (Negative); Clarity Turbid (Clear); Glucose, Urine (Dipstick) Normal (Negative); Ketone, Urine Negative (Negative); Leukocyte 500 Leu/uL (Negative); Nitrite Negative (Negative); Protein, Urine (Dipstick) Negative (Neg-Trace); RBC/HPF 0-3 HPF (0-3); Specific Gravity, Urine 1.013 (1.002-1.036); Squamous Epithelial 0-3 HPF (0-3); Urobilinogen Normal mg/dL (Less than 2); WBC/HPF Greater than 50 HPF (0-3)
[2020-04-30 07:56] LABS: Urine Culture Reflex Yes Yes
[2020-04-30] MEDS: Carvedilol 3.125 MG TAB PO SCH ×2 (09:11→20:45)
[2020-04-30] MEDS: Cyanocobalamin (Vitamin B-12) 1,000 MCG TAB PO SCH (09:11)
[2020-04-30] MEDS: Folic Acid 1 MG TAB PO SCH (09:11)
[2020-04-30] MEDS: Aspirin Chewable 81 MG TAB PO SCH (09:11)
[2020-04-30] MEDS: Cholecalciferol (Vitamin D3) 400 UNITS TAB PO SCH (09:12)
[2020-04-30] MEDS: Lisinopril 2.5 MG TAB PO SCH (09:12)
[2020-04-30] MEDS: Atorvastatin Calcium 20 MG TAB PO SCH (09:12)
[2020-04-30] MEDS ORDERED: traMADol HCl 50 MG TAB PO PRN (12:25)
[2020-04-30] MEDS ORDERED: Communication Order-Pharmacy FS SCH (15:00)
[2020-04-30] MEDS ORDERED: Sodium Chloride 0.9% 1,000 ML IV SCH (15:00)
[2020-05-01 05:06] LABS: #Basophils 0.1 thou/uL (0.0-0.2); #Eosinphils 0.6 thou/uL (0.0-0.7); #Monocytes 0.5 thou/uL (0.11-0.59); #Neutrophils 3.2 thou/uL (1.40-6.50); %Basophils 0.9 % (0.0-1.0); %Eosinophils 9.4 % (0.0-10.0); %Lymphocytes 31.1 % (21.0-51.0); %Monocytes 8.4 % (0.0-10.0); %Neutrophils 50.3 % (42.0-75.0); Hemoglobin 13.7 g/dL (12.0-16.0); Mean Corpuscular HGB CONC 32.7 g/dL (32.0-36.0); Mean Corpuscular Hemoglobin 30.5 pg (27.0-31.0); Mean Corpuscular Volume 93.5 fL (78.0-98.0); Mean Platelet Volume 7.9 fL (7.4-10.4); Platelet Count 225 thou/uL (130-400); RBC Distribution Width 11.9 % (11.5-14.5); Red Blood Cell (RBC) Count 4.47 mill/uL (4.20-5.40); White Blood Cell (WBC) Count 6.3 thou/uL (4.8-10.8)
[2020-05-01 05:26] LABS: Anion Gap 11 mmol/L (10-20); BUN (Urea Nitrogen) 19 mg/dL (9.8-20.1); Calc. Creatinine Clearance 86 mL/min (70-130); Calcium 8.8 mg/dL (7.8-10.44); Carbon Dioxide 26 mmol/L (23-31); Chloride 103 mmol/L (98-107); Glucose 96 mg/dL (83-110); Potassium 3.7 mmol/L (3.5-5.1); Sodium 136 mmol/L (136-145)
[2020-05-01] MEDS: Aspirin Chewable 81 MG TAB PO SCH (05:50)
[2020-05-01] MEDS: Cholecalciferol (Vitamin D3) 400 UNITS TAB PO SCH (05:50)
[2020-05-01] MEDS: Folic Acid 1 MG TAB PO SCH (05:50)
[2020-05-01] MEDS: Carvedilol 3.125 MG TAB PO SCH ×2 (05:50→05:51)
[2020-05-01] MEDS: Atorvastatin Calcium 20 MG TAB PO SCH (05:51)
[2020-05-01] MEDS: Cyanocobalamin (Vitamin B-12) 1,000 MCG TAB PO SCH (05:51)
[2020-05-01] MEDS: Lisinopril 2.5 MG TAB PO SCH (05:51)
[2020-05-01] MEDS ORDERED: Sodium Chloride 0.9% 1,000 ML IV SCH ×2 (06:00→08:00)
[2020-05-01] MEDS ORDERED: Lidocaine 1% (PF) 30 ML VIAL ONE (06:40)
[2020-05-01] MEDS ORDERED: Fentanyl 100 MCG/2 ML VIAL ONE (07:21)
[2020-05-01] MEDS ORDERED: Midazolam HCl 2 mg/2 ml Vial ONE (07:21)
[2020-05-01] MEDS ORDERED: Nitroglycerin 0.4 MG TAB (25 Tab Bottle) SL PRN (07:56)
[2020-05-01] MEDS ORDERED: Sodium Chloride 0.9% 200 ML IV PRN (07:56)
[2020-05-01 11:57] VITALS: BP 116/56; TEMP 97.5
[2020-05-01] MEDS ORDERED: Iopamidol 370 76% 100 ML VIAL ONE (15:01)
== END 2020-05-01 13:36 | disposition home or self-care (01) | DRG 287 ==
LOC: ERS 09:50 → ERHOLD 11:54 → 2SW 19:12 → OBSVTOIN 04-30 19:01
PROVIDERS: ADMIT Internal Medicine; ATTEND Internal Medicine
PROC: B2111ZZ Fluoroscopy of Multiple Coronary Arteries using Low Osmolar Contrast (ICD-10-PCS; principal; 2020-05-01)
PROC: B2151ZZ Fluoroscopy of Left Heart using Low Osmolar Contrast (ICD-10-PCS; 2020-05-01)
PROC: 4A033BC Measurement of Arterial Pressure, Coronary, Percutaneous Approach (ICD-10-PCS; 2020-05-01)
DX: R07.89 Other chest pain (principal); I50.22 Chronic systolic (congestive) heart failure; N30.00 Acute cystitis without hematuria; I42.9 Cardiomyopathy, unspecified; Z20.822 Contact with and (suspected) exposure to COVID-19; I48.91 Unspecified atrial fibrillation; J44.9 Chronic obstructive pulmonary disease, unspecified; I25.10 Atherosclerotic heart disease of native coronary artery without angina pectoris; K21.9 Gastro-esophageal reflux disease without esophagitis; M85.80 Other specified disorders of bone density and structure, unspecified site; E78.5 Hyperlipidemia, unspecified; K70.0 Alcoholic fatty liver; F41.9 Anxiety disorder, unspecified; E66.9 Obesity, unspecified; Z90.710 Acquired absence of both cervix and uterus; Z68.30 Body mass index [BMI] 30.0-30.9, adult; I25.2 Old myocardial infarction; Z95.0 Presence of cardiac pacemaker; Z91.19 Patient's noncompliance with other medical treatment and regimen; Z88.5 Allergy status to narcotic agent; Z88.0 Allergy status to penicillin; Z79.82 Long term (current) use of aspirin; Z79.899 Other long term (current) drug therapy; I11.0 Hypertensive heart disease with heart failure
CPT/HCPCS: 36415; 71045; 80048; 80053; 80061; 81001; 83690; 83880; 84484; 85025; 87086; 87635; 93005; 93458; 94760; 99153; G0378; J2001; J2250; J3010; Q9967; U0003; U0005

== ENCOUNTER 2020-08-05 16:35 | Emergency (ER) | payer MEDICARE, MEDICAID ==
[2020-08-05 17:49] LABS: #Eosinphils 0.5 thou/uL (0.0-0.7); #Lymphocytes 2.1 thou/uL (1.20-3.40); #Monocytes 0.7 thou/uL (0.11-0.59); #Neutrophils 5.4 thou/uL (1.40-6.50); %Basophils 0.5 % (0.0-1.0); %Eosinophils 6.1 % (0.0-10.0); %Lymphocytes 24.3 % (21.0-51.0); %Monocytes 7.9 % (0.0-10.0); %Neutrophils 61.2 % (42.0-75.0); Hemoglobin 14.4 g/dL (12.0-16.0); Mean Corpuscular HGB CONC 34.1 g/dL (32.0-36.0); Mean Corpuscular Hemoglobin 32.3 pg (27.0-31.0); Mean Corpuscular Volume 94.7 fL (78.0-98.0); Mean Platelet Volume 7.6 fL (7.4-10.4); Platelet Count 260 thou/uL (130-400); RBC Distribution Width 11.8 % (11.5-14.5); Red Blood Cell (RBC) Count 4.45 mill/uL (4.20-5.40); White Blood Cell (WBC) Count 8.8 thou/uL (4.8-10.8)
[2020-08-05 18:13] LABS: ALT (SGPT) 18 U/L (8-55); AST (SGOT) 26 U/L (5-34); Albumin 3.9 g/dL (3.4-4.8); Alkaline Phosphatase 131 U/L (40-110); Anion Gap 16 mmol/L (10-20); BUN (Urea Nitrogen) 9 mg/dL (9.8-20.1); Bilirubin, Total 0.4 mg/dL (0.2-1.2); Calc. Creatinine Clearance 0 mL/min (70-130); Calcium 9.4 mg/dL (7.8-10.44); Carbon Dioxide 21 mmol/L (23-31); Chloride 105 mmol/L (98-107); Globulin 3.3 g/dL (2.4-3.5); Glucose 92 mg/dL (83-110); Lipase 29 U/L (8-78); Potassium 3.9 mmol/L (3.5-5.1); Protein, Total 7.2 g/dL (5.8-8.1); Sodium 138 mmol/L (136-145)
[2020-08-05] MEDS ORDERED: diphenhydrAMINE 50 MG/ML VIAL ONE (18:30)
[2020-08-05] MEDS ORDERED: Metoclopramide HCl 10 MG/2 ML VIAL ONE (18:30)
[2020-08-05 18:38] LABS: Bacteria/HPF None Seen HPF (None Seen); Bilirubin Negative (Negative); Blood, Urine Trace (Negative); Clarity Clear (Clear); Glucose, Urine (Dipstick) Normal (Negative); Ketone, Urine Negative (Negative); Leukocyte Negative Leu/uL (Negative); Nitrite Negative (Negative); Protein, Urine (Dipstick) Negative (Neg-Trace); RBC/HPF 0-3 HPF (0-3); Specific Gravity, Urine 1.005 (1.002-1.036); Squamous Epithelial 0-3 HPF (0-3); Urobilinogen Normal mg/dL (Less than 2); WBC/HPF None Seen HPF (0-3); pH, Urine 6.5 (5.0-9.0)
== END 2020-08-05 19:53 | disposition home or self-care (01) ==
LOC: ERS 16:35
DX: R53.1 Weakness (principal); I25.2 Old myocardial infarction; I48.91 Unspecified atrial fibrillation; J44.9 Chronic obstructive pulmonary disease, unspecified; Z79.899 Other long term (current) drug therapy
CPT/HCPCS: 36415; 80053; 81003; 81015; 83690; 84484; 85025; 93005; 96365; 96375; J1200; J2765

== ENCOUNTER 2021-08-16 18:30 | Emergency (ER) | payer MEDICARE, MEDICAID ==
[2021-08-16 19:02] LABS: #Basophils 0.1 thou/uL (0.0-0.2); #Eosinphils 0.7 thou/uL (0.0-0.7); #Lymphocytes 1.5 thou/uL (1.20-3.40); #Monocytes 0.5 thou/uL (0.11-0.59); %Basophils 0.7 % (0.0-1.0); %Eosinophils 7.7 % (0.0-10.0); %Lymphocytes 17.6 % (21.0-51.0); %Monocytes 5.7 % (0.0-10.0); %Neutrophils 68.3 % (42.0-75.0); Hemoglobin 14.7 g/dL (12.0-16.0); Mean Corpuscular HGB CONC 32.9 g/dL (32.0-36.0); Mean Corpuscular Hemoglobin 32.4 pg (27.0-31.0); Mean Corpuscular Volume 98.4 fL (78.0-98.0); Platelet Count 254 thou/uL (130-400); Red Blood Cell (RBC) Count 4.55 mill/uL (4.20-5.40); White Blood Cell (WBC) Count 8.8 thou/uL (4.8-10.8)
[2021-08-16 19:24] LABS: ALT (SGPT) 21 U/L (8-55); AST (SGOT) 25 U/L (5-34); Albumin 3.8 g/dL (3.4-4.8); Alkaline Phosphatase 160 U/L (40-110); Anion Gap 12 mmol/L (10-20); BUN (Urea Nitrogen) 11 mg/dL (9.8-20.1); Bilirubin, Total 0.3 mg/dL (0.2-1.2); Calc. Creatinine Clearance 0 mL/min (70-130); Calcium 9.7 mg/dL (7.8-10.44); Carbon Dioxide 27 mmol/L (23-31); Chloride 105 mmol/L (98-107); Estimated GFR 75; Globulin 3.4 g/dL (2.4-3.5); Glucose 114 mg/dL (83-110); Lipase 35 U/L (8-78); Protein, Total 7.2 g/dL (5.8-8.1); Sodium 140 mmol/L (136-145)
== END 2021-08-16 22:10 | disposition home or self-care (01) ==
LOC: ERS 18:30
DX: R53.1 Weakness (principal); R07.89 Other chest pain; I25.2 Old myocardial infarction; J44.9 Chronic obstructive pulmonary disease, unspecified; Z79.899 Other long term (current) drug therapy
CPT/HCPCS: 36415; 71045; 80053; 83690; 84484; 85025; 93005

== ENCOUNTER 2022-04-02 17:06 | Emergency (ER) | payer MEDICAID, MEDICARE, OTHER ==
[2022-04-02] MEDS ORDERED: Morphine 4 MG/ML VIAL ONE (17:24)
[2022-04-02 17:48] LABS: #Eosinphils 0.5 thou/uL (0.0-0.7); #Lymphocytes 1.8 thou/uL (1.20-3.40); #Monocytes 0.7 thou/uL (0.11-0.59); #Neutrophils 5.4 thou/uL (1.40-6.50); %Basophils 0.6 % (0.0-1.0); %Eosinophils 5.8 % (0.0-10.0); %Lymphocytes 21.1 % (21.0-51.0); %Monocytes 8.1 % (0.0-10.0); %Neutrophils 64.5 % (42.0-75.0); Hemoglobin 13.2 g/dL (12.0-16.0); Mean Corpuscular Hemoglobin 31.6 pg (27.0-31.0); Mean Corpuscular Volume 95.8 fl (78.0-98.0); Mean Platelet Volume 8.2 fL (7.4-10.4); Platelet Count 218 10x3/uL (130-400); RBC Distribution Width 11.9 % (11.5-14.5); Red Blood Cell (RBC) Count 4.16 mill/uL (4.20-5.40); White Blood Cell (WBC) Count 8.4 10x3/uL (4.8-10.8)
[2022-04-02 18:09] LABS: ALT (SGPT) 18 U/L (8-55); AST (SGOT) 19 U/L (5-34); Albumin 3.4 g/dL (3.4-4.8); Alkaline Phosphatase 162 U/L (40-110); Anion Gap 9 mmol/L (10-20); BUN (Urea Nitrogen) 12 mg/dL (9.8-20.1); Bilirubin, Total 0.3 mg/dL (0.2-1.2); Calc. Creatinine Clearance 0 mL/min (70-130); Calcium 8.3 mg/dL (7.8-10.44); Carbon Dioxide 26 mmol/L (23-31); Chloride 106 mmol/L (98-107); Estimated GFR 86; Globulin 2.9 g/dL (2.4-3.5); Glucose 104 mg/dL (83-110); Lipase 23 U/L (8-78); Magnesium 1.9 mg/dL (1.6-2.6); Potassium 3.7 mmol/L (3.5-5.1); Protein, Total 6.3 g/dL (5.8-8.1); Sodium 137 mmol/L (136-145)
[2022-04-02 18:45] LABS: Bacteria/HPF None Seen HPF (None Seen); Bilirubin Negative (Negative); Blood, Urine 1+ (Negative); Clarity Clear (Clear); Glucose, Urine (Dipstick) Normal (Negative); Ketone, Urine Negative (Negative); Leukocyte 25 Leu/uL (Negative); Nitrite Negative (Negative); Protein, Urine (Dipstick) Negative (Neg-Trace); RBC/HPF 0-3 HPF (0-3); Specific Gravity, Urine 1.008 (1.002-1.036); Squamous Epithelial 0-3 HPF (0-3); Urobilinogen Normal mg/dL (Less than 2); WBC/HPF 0-3 HPF (0-3); pH, Urine 6.5 (5.0-9.0)
== END 2022-04-02 19:30 | disposition home or self-care (01) ==
LOC: ERS 17:06
DX: E86.0 Dehydration (principal); R53.1 Weakness; I25.2 Old myocardial infarction; I48.91 Unspecified atrial fibrillation; J44.9 Chronic obstructive pulmonary disease, unspecified; K21.9 Gastro-esophageal reflux disease without esophagitis; M19.90 Unspecified osteoarthritis, unspecified site; Z95.0 Presence of cardiac pacemaker
CPT/HCPCS: 36415; 71045; 74177; 80053; 81003; 81015; 83605; 83690; 83735; 83880; 84484; 85025; 87040; 87077; 87086; 87186; 93005; 96361; 96374; J2270

== ENCOUNTER 2022-05-09 16:21 | Emergency (ER) | payer OTHER, MEDICAID ==
[2022-05-09 17:47] LABS: #Basophils 0.1 thou/uL (0.0-0.2); #Eosinphils 0.4 thou/uL (0.0-0.7); #Lymphocytes 2.7 thou/uL (1.20-3.40); #Monocytes 0.7 thou/uL (0.11-0.59); #Neutrophils 5.7 thou/uL (1.40-6.50); %Basophils 0.7 % (0.0-1.0); %Eosinophils 4.1 % (0.0-10.0); %Lymphocytes 28.5 % (21.0-51.0); %Neutrophils 59.8 % (42.0-75.0); Hemoglobin 14.1 g/dL (12.0-16.0); Mean Corpuscular HGB CONC 33.2 g/dL (32.0-36.0); Mean Corpuscular Hemoglobin 31.9 pg (27.0-31.0); Mean Corpuscular Volume 96.2 fl (78.0-98.0); Mean Platelet Volume 8.1 fL (7.4-10.4); Platelet Count 215 10x3/uL (130-400); RBC Distribution Width 12.1 % (11.5-14.5); Red Blood Cell (RBC) Count 4.42 mill/uL (4.20-5.40); White Blood Cell (WBC) Count 9.6 10x3/uL (4.8-10.8)
[2022-05-09 17:50] LABS: Bacteria/HPF 4+ HPF (None Seen); Bilirubin Negative (Negative); Blood, Urine 1+ (Negative); Clarity Turbid (Clear); Glucose, Urine (Dipstick) Normal (Negative); Ketone, Urine Negative (Negative); Leukocyte 75 Leu/uL (Negative); Nitrite Negative (Negative); Protein, Urine (Dipstick) Negative (Neg-Trace); RBC/HPF 0-3 HPF (0-3); Specific Gravity, Urine 1.003 (1.002-1.036); Squamous Epithelial 0-3 HPF (0-3); Urobilinogen Normal mg/dL (Less than 2); WBC/HPF 0-3 HPF (0-3)
[2022-05-09 18:11] LABS: ALT (SGPT) 12 U/L (8-55); AST (SGOT) 20 U/L (5-34); Albumin 3.9 g/dL (3.4-4.8); Alkaline Phosphatase 145 U/L (40-110); Anion Gap 13 mmol/L (10-20); BUN (Urea Nitrogen) 6 mg/dL (9.8-20.1); Bilirubin, Total 0.5 mg/dL (0.2-1.2); CK (CPK) 47 U/L (29-168); Calc. Creatinine Clearance 0 mL/min (70-130); Calcium 8.9 mg/dL (7.8-10.44); Carbon Dioxide 21 mmol/L (23-31); Chloride 110 mmol/L (98-107); Estimated GFR 83; Globulin 3.1 g/dL (2.4-3.5); Glucose 73 mg/dL (83-110); Lipase 23 U/L (8-78); Potassium 3.2 mmol/L (3.5-5.1); Sodium 141 mmol/L (136-145)
[2022-05-09 18:14] LABS: SARS-CoV-2 NAA Rapid Test Not Detected (NotDetected)
[2022-05-09] MEDS ORDERED: Ciprofloxacin 500 MG TAB ONE (18:31)
== END 2022-05-09 19:58 | disposition home or self-care (01) ==
LOC: ERS 16:21
DX: E86.0 Dehydration (principal); N39.0 Urinary tract infection, site not specified; Z20.822 Contact with and (suspected) exposure to COVID-19
CPT/HCPCS: 0240U; 71045; 80053; 82550; 83690; 83880; 84484; 85025; 93005; 36415; 81003; 81015

== ENCOUNTER 2023-04-21 14:54 | Emergency (ER) | payer MEDICARE, MEDICAID ==
[2023-04-21 15:37] LABS: #Basophils 0.1 thou/uL (0.0-0.2); #Eosinphils 0.5 thou/uL (0.0-0.7); #Monocytes 0.7 thou/uL (0.11-0.59); #Neutrophils 5.2 thou/uL (1.40-6.50); %Basophils 0.9 % (0.0-1.0); %Eosinophils 6.4 % (0.0-10.0); %Lymphocytes 22.2 % (21.0-51.0); %Monocytes 8.1 % (0.0-10.0); %Neutrophils 61.9 % (42.0-75.0); Hematocrit 41.3 % (36.0-47.0); Hemoglobin 13.4 g/dL (12.0-16.0); Mean Corpuscular HGB CONC 32.4 g/dL (32.0-36.0); Mean Corpuscular Hemoglobin 31.4 pg (27.0-31.0); Mean Corpuscular Volume 96.7 fl (78.0-98.0); Mean Platelet Volume 10.1 fL (7.4-10.4); Platelet Count 241 10x3/uL (130-400); Red Blood Cell (RBC) Count 4.27 mill/uL (4.20-5.40); White Blood Cell (WBC) Count 8.5 10x3/uL (4.8-10.8)
[2023-04-21 16:02] LABS: ALT (SGPT) 37 U/L (8-55); AST (SGOT) 52 U/L (5-34); Albumin 3.6 g/dL (3.4-4.8); Alkaline Phosphatase 172 U/L (40-110); Anion Gap 13 mmol/L (10-20); BUN (Urea Nitrogen) 8 mg/dL (9.8-20.1); Bilirubin, Total 0.4 mg/dL (0.2-1.2); Calc. Creatinine Clearance 0 mL/min (70-130); Calcium 8.6 mg/dL (7.8-10.44); Carbon Dioxide 22 mmol/L (23-31); Chloride 109 mmol/L (98-107); Estimated GFR 80; Globulin 3.1 g/dL (2.4-3.5); Glucose 114 mg/dL (83-110); Potassium 3.5 mmol/L (3.5-5.1); Protein, Total 6.7 g/dL (5.8-8.1); Sodium 140 mmol/L (136-145)
[2023-04-21 16:03] LABS: Troponin I Less than 0.010 ng/mL (< 0.028)
[2023-04-21 16:23] LABS: Influenza A by NAA Not Detected (NotDetected); Influenza B by NAA Not Detected (NotDetected); SARS-CoV-2 NAA Rapid Test Not Detected (NotDetected)
== END 2023-04-21 17:16 | disposition home or self-care (01) ==
LOC: ERS 14:54
DX: R55 Syncope and collapse (principal); F17.210 Nicotine dependence, cigarettes, uncomplicated; J44.9 Chronic obstructive pulmonary disease, unspecified; Z95.0 Presence of cardiac pacemaker; Z79.82 Long term (current) use of aspirin
CPT/HCPCS: 0240U; 71045; 84484; 93005; 94760; 99285; 36415; 80053; 84443; 85025

== ENCOUNTER 2023-07-12 15:24 | Inpatient (IN) | payer MEDICARE, MEDICAID ==
[~2023-07-12 15:24] MED LIST changes: -Iopamidol-370 76% 500 ML 1 ML ONE; +Iopamidol-370 76% 500 ML MDV (1 ML CHARGE) ONE
[2023-07-12 16:22] LABS: #Basophils 0.06 10x3/uL (0.0-0.2); %Basophils 0.9 % (0.0-1.0); %Eosinophils 6.4 % (0.0-10.0); %Lymphocytes 22.1 % (21.0-51.0); %Monocytes 7.6 % (0.0-10.0); %Neutrophils 62.7 % (42.0-75.0); Hematocrit 38.1 % (36.0-47.0); Hemoglobin 12.5 g/dL (12.0-16.0); Mean Corpuscular HGB CONC 32.8 g/dL (32.0-36.0); Mean Corpuscular Hemoglobin 31.7 pg (27.0-31.0); Mean Corpuscular Volume 96.7 fL (78.0-98.0); Mean Platelet Volume 10.1 fL (7.4-10.4); Platelet Count 253 10x3/uL (130-400); RBC Distribution Width 12.9 % (11.5-14.5); Red Blood Cell (RBC) Count 3.94 mill/uL (4.20-5.40)
[2023-07-12 16:48] LABS: ALT (SGPT) 10 U/L (8-55); AST (SGOT) 27 U/L (5-34); Albumin 3.3 g/dL (3.4-4.8); Alkaline Phosphatase 117 U/L (40-110); Anion Gap 13 mmol/L (10-20); BUN (Urea Nitrogen) 7 mg/dL (9.8-20.1); Bilirubin, Total 0.5 mg/dL (0.2-1.2); Calc. Creatinine Clearance 0 mL/min (70-130); Calcium 8.6 mg/dL (7.8-10.44); Carbon Dioxide 23 mmol/L (23-31); Chloride 109 mmol/L (98-107); Estimated GFR 81; Globulin 3.2 g/dL (2.4-3.5); Glucose 96 mg/dL (83-110); Magnesium 2.1 mg/dL (1.6-2.6); Potassium 3.6 mmol/L (3.5-5.1); Protein, Total 6.5 g/dL (5.8-8.1); Sodium 141 mmol/L (136-145)
[2023-07-12 16:52] LABS: Troponin I 0.011 ng/mL (< 0.028)
[2023-07-12 17:07] LABS: Bilirubin Negative (Negative); Blood, Urine Negative (Negative); CAUTI Indications for Culture Pelvic or flank pain; Glucose, Urine (Dipstick) Normal (Negative); Ketone, Urine Negative (Negative); Leukocyte 250 Leu/uL (Negative); Nitrite 2+ (Negative); Protein, Urine (Dipstick) Negative (Neg-Trace); RBC/HPF 0-3 HPF (0-3); Specific Gravity, Urine 1.005 (1.002-1.036); Squamous Epithelial 0-3 HPF (0-3); Urobilinogen Normal mg/dL (Less than 2); pH, Urine 6.5 (5.0-9.0)
[2023-07-12 17:20] LABS: Bacteria/HPF 1+ HPF (None Seen); Clarity Cloudy (Clear); Urine Culture Reflex Yes Yes
[2023-07-12] MEDS ORDERED: cefTRIAXone (ROCEPHIN) 1 GM VIAL ONE (17:52)
[2023-07-12] MEDS ORDERED: Sodium Chloride 0.9% 100 ML ONE (17:52)
[2023-07-12] MEDS ORDERED: Acetaminophen 325 MG TAB PO PRN (19:08)
[2023-07-12] MEDS ORDERED: Ondansetron ODT 4 MG TAB PO PRN (19:08)
[2023-07-12] MEDS ORDERED: Ondansetron PF 4 MG/2 ML Vial IVP PRN (19:08)
[2023-07-12] MEDS: Sodium Chloride 0.9% 1,000 ML IV SCH (19:50)
[2023-07-12] MEDS ORDERED: Ipratropium/Albuterol 3 ML NEB EZPAP PRN (19:52)
[2023-07-12 21:49] VITALS: BMI 30.4
[2023-07-13 04:56] LABS: #Basophils 0.05 10x3/uL (0.0-0.2); %Basophils 0.7 % (0.0-1.0); %Eosinophils 5.2 % (0.0-10.0); %Monocytes 6.9 % (0.0-10.0); %Neutrophils 63.9 % (42.0-75.0); Hematocrit 37.7 % (36.0-47.0); Hemoglobin 12.1 g/dL (12.0-16.0); Mean Corpuscular HGB CONC 32.1 g/dL (32.0-36.0); Mean Corpuscular Hemoglobin 30.8 pg (27.0-31.0); Mean Corpuscular Volume 95.9 fL (78.0-98.0); Mean Platelet Volume 10.3 fL (7.4-10.4); Platelet Count 236 10x3/uL (130-400); Red Blood Cell (RBC) Count 3.93 mill/uL (4.20-5.40)
[2023-07-13 05:21] LABS: Anion Gap 12 mmol/L (10-20); BUN (Urea Nitrogen) 6 mg/dL (9.8-20.1); Calc. Creatinine Clearance 98 mL/min (70-130); Calcium 8.5 mg/dL (7.8-10.44); Carbon Dioxide 22 mmol/L (23-31); Chloride 112 mmol/L (98-107); Estimated GFR 89; Glucose 83 mg/dL (83-110); Potassium 3.2 mmol/L (3.5-5.1); Sodium 143 mmol/L (136-145)
[2023-07-13] MEDS: Enoxaparin 40 MG (0.4 mL) SYRINGE SC SCH (10:43)
[2023-07-13] MEDS: Meclizine HCl 25 MG TAB PO SCH (17:55)
[2023-07-13] MEDS: cefTRIAXone\\ROCEPHIN 1 GM in Sodium Chloride 0.9% 100 ML IVPB SCH (17:55)
[2023-07-13] MEDS: Lidocaine 4% Patch TD SCH (20:57)
[2023-07-14] MEDS: diphenhydrAMINE 25 MG CAP PO SCH (00:04)
[2023-07-14] MEDS ORDERED: traMADol HCl 50 MG TAB PO PRN (08:45)
[2023-07-14] MEDS: Aspirin Chewable 81 MG TAB PO SCH (09:32)
[2023-07-14] MEDS: Potassium Chloride 20 MEQ TAB PO SCH (09:38)
[2023-07-14] MEDS: Meclizine HCl 25 MG TAB PO SCH (09:38)
[2023-07-14] MEDS: Pantoprazole DR 40 MG TAB PO SCH (09:38)
[2023-07-14] MEDS: Transdermal Patch Removal TOP SCH (09:38)
[2023-07-14] MEDS: Folic Acid 1 MG TAB PO SCH (09:38)
[2023-07-14 10:49] LABS: #Basophils 0.05 10x3/uL (0.0-0.2); %Basophils 0.8 % (0.0-1.0); %Eosinophils 6.4 % (0.0-10.0); %Lymphocytes 25.2 % (21.0-51.0); %Monocytes 7.9 % (0.0-10.0); %Neutrophils 59.4 % (42.0-75.0); Hematocrit 41.8 % (36.0-47.0); Hemoglobin 13.8 g/dL (12.0-16.0); Mean Corpuscular Hemoglobin 30.9 pg (27.0-31.0); Mean Corpuscular Volume 93.7 fL (78.0-98.0); Platelet Count 256 10x3/uL (130-400); Red Blood Cell (RBC) Count 4.46 mill/uL (4.20-5.40)
[2023-07-14 11:13] LABS: Anion Gap 12 mmol/L (10-20); BUN (Urea Nitrogen) 7 mg/dL (9.8-20.1); Calc. Creatinine Clearance 90 mL/min (70-130); Calcium 9.1 mg/dL (7.8-10.44); Carbon Dioxide 25 mmol/L (23-31); Chloride 109 mmol/L (98-107); Estimated GFR 87; Glucose 89 mg/dL (83-110); Potassium 3.6 mmol/L (3.5-5.1); Sodium 142 mmol/L (136-145)
[2023-07-15 05:24] LABS: #Basophils 0.06 10x3/uL (0.0-0.2); %Eosinophils 9.3 % (0.0-10.0); %Lymphocytes 27.5 % (21.0-51.0); Hematocrit 38.8 % (36.0-47.0); Hemoglobin 12.7 g/dL (12.0-16.0); Mean Corpuscular HGB CONC 32.7 g/dL (32.0-36.0); Mean Corpuscular Hemoglobin 31.2 pg (27.0-31.0); Mean Corpuscular Volume 95.3 fL (78.0-98.0); Mean Platelet Volume 10.1 fL (7.4-10.4); Platelet Count 255 10x3/uL (130-400); RBC Distribution Width 13.1 % (11.5-14.5); Red Blood Cell (RBC) Count 4.07 mill/uL (4.20-5.40)
[2023-07-15 06:36] LABS: Calcium 9.1 mg/dL (7.8-10.44); Chloride 109 mmol/L (98-107); Sodium 141 mmol/L (136-145)
[2023-07-15 06:37] LABS: Glucose 90 mg/dL (83-110)
[2023-07-15 06:38] LABS: Anion Gap 14 mmol/L (10-20); Carbon Dioxide 22 mmol/L (23-31)
[2023-07-15 06:41] LABS: BUN (Urea Nitrogen) 11 mg/dL (9.8-20.1); Calc. Creatinine Clearance 84 mL/min (70-130); Estimated GFR 83; Potassium 4.2 mmol/L (3.5-5.1)
[2023-07-15 08:38] VITALS: TEMP 98.1
[2023-07-15 13:08] VITALS: BP 115/65
== END 2023-07-15 13:10 | disposition home health service (06) | DRG 690 ==
LOC: ERS 15:24 → 2SE 18:16 → T4-B 07-13 11:54 → T4-A 07-13 21:59 → OBSVTOIN 07-14 09:56
PROVIDERS: ADMIT Internal Medicine; ATTEND Family Medicine
DX: N39.0 Urinary tract infection, site not specified (principal); I50.22 Chronic systolic (congestive) heart failure; I25.10 Atherosclerotic heart disease of native coronary artery without angina pectoris; I48.0 Paroxysmal atrial fibrillation; F41.9 Anxiety disorder, unspecified; E87.6 Hypokalemia; K80.20 Calculus of gallbladder without cholecystitis without obstruction; R41.0 Disorientation, unspecified; J44.9 Chronic obstructive pulmonary disease, unspecified; M85.80 Other specified disorders of bone density and structure, unspecified site; K21.9 Gastro-esophageal reflux disease without esophagitis; F03.A0 Unspecified dementia, mild, without behavioral disturbance, psychotic disturbance, mood disturbance, and anxiety; I95.9 Hypotension, unspecified; Z88.5 Allergy status to narcotic agent; Z88.0 Allergy status to penicillin; Z88.8 Allergy status to other drugs, medicaments and biological substances; Z79.82 Long term (current) use of aspirin; Z79.899 Other long term (current) drug therapy; Z90.710 Acquired absence of both cervix and uterus; Z98.890 Other specified postprocedural states
CPT/HCPCS: 36415; 36416; 70450; 71045; 74177; 80048; 80053; 81001; 83605; 83735; 84484; 85025; 87040; 87086; 93005; 96372; 96374; 96376; G0378; J0696; J1650; J3490; Q9967